=== PATIENT | male | born 1945 | race Caucasian/White ===

== ENCOUNTER → 2016-11-17 | Outpatient (REF) | payer OTHER, MEDICARE ==
[2016-11-17 15:05] LABS: ALBUMIN/GLOBULIN RATIO 1.21 (1.00-1.93); ALKALINE PHOSPHATASE 92 U/L (45-117); ALT/SGPT 41 U/L (12-78); ANION GAP 7 MEQ/L (8-16); AST/SGOT 29 U/L (15-37); BILIRUBIN,TOTAL 0.8 MG/DL (0.2-1.0); BLOOD UREA NITROGEN 14 MG/DL (7-18); CALCIUM LEVEL 8.9 MG/DL (8.8-10.2); CARBON DIOXIDE LEVEL 28 MEQ/L (21-32); CHLORIDE LEVEL 105 MEQ/L (98-107); CHOLESTEROL LEVEL 137 MG/DL (<200); CREATININE FOR GFR 1.25 MG/DL (0.70-1.30); GLOMERULAR FILTRATION RATE > 60.0 (>42); GLUCOSE, FASTING 97 MG/DL (83-110); POTASSIUM SERUM 4.5 MEQ/L (3.5-5.1); SODIUM LEVEL 140 MEQ/L (136-145); TOTAL PROTEIN 7.3 GM/DL (6.4-8.2); TRIGLYCERIDES LEVEL 113 MG/DL (<150)
== END ==
LOC: M SFHCLACO 09:19
PROVIDERS: ATTEND Physician Assistant
DX: E78.2 Mixed hyperlipidemia (principal); I10 Essential (primary) hypertension

== ENCOUNTER → 2017-05-18 | Outpatient (REF) | payer OTHER, MEDICARE ==
[2017-05-18 15:09] LABS: ALBUMIN/GLOBULIN RATIO 1.25 (1.00-1.93); ALKALINE PHOSPHATASE 85 U/L (45-117); ALT/SGPT 28 U/L (12-78); ANION GAP 6 MEQ/L (8-16); AST/SGOT 20 U/L (15-37); BILIRUBIN,TOTAL 0.7 MG/DL (0.2-1.0); BLOOD UREA NITROGEN 13 MG/DL (7-18); CALCIUM LEVEL 8.5 MG/DL (8.8-10.2); CARBON DIOXIDE LEVEL 29 MEQ/L (21-32); CHLORIDE LEVEL 104 MEQ/L (98-107); CHOLESTEROL LEVEL 111 MG/DL (<200); CREATININE FOR GFR 1.18 MG/DL (0.70-1.30); GLOMERULAR FILTRATION RATE > 60.0 (>42); GLUCOSE, FASTING 90 MG/DL (83-110); POTASSIUM SERUM 4.7 MEQ/L (3.5-5.1); SODIUM LEVEL 139 MEQ/L (136-145); TOTAL PROTEIN 7.2 GM/DL (6.4-8.2); TRIGLYCERIDES LEVEL 119 MG/DL (<150)
== END ==
LOC: M SFHCLACO 10:10
PROVIDERS: ATTEND Physician Assistant
DX: I10 Essential (primary) hypertension (principal); E78.2 Mixed hyperlipidemia

== ENCOUNTER → 2017-10-17 | Outpatient (REF) | payer OTHER, MEDICARE ==
[2017-10-17 15:14] LABS: ALBUMIN 4.2 GM/DL (3.2-5.2); ALBUMIN/GLOBULIN RATIO 1.27 (1.00-1.93); ALKALINE PHOSPHATASE 92 U/L (45-117); ALT/SGPT 27 U/L (12-78); ANION GAP 5 MEQ/L (8-16); AST/SGOT 21 U/L (7-37); BILIRUBIN,TOTAL 0.8 MG/DL (0.2-1.0); BLOOD UREA NITROGEN 13 MG/DL (7-18); CARBON DIOXIDE LEVEL 29 MEQ/L (21-32); CHLORIDE LEVEL 105 MEQ/L (98-107); CHOLESTEROL LEVEL 134 MG/DL (<200); CHOLESTEROL RISK RATIO 3.941 (<5); CREATININE FOR GFR 1.13 MG/DL (0.70-1.30); GLOMERULAR FILTRATION RATE > 60.0 (>42); GLUCOSE, FASTING 95 MG/DL (70-100); HDL CHOLESTEROL 34 MG/DL (>40); NON-HDL-C 100 MG/DL; POTASSIUM SERUM 4.8 MEQ/L (3.5-5.1); SODIUM LEVEL 139 MEQ/L (136-145); TOTAL PROTEIN 7.5 GM/DL (6.4-8.2); TRIGLYCERIDES LEVEL 110 MG/DL (<150)
== END ==
LOC: M SFHCLACO 08:47
DX: E78.2 Mixed hyperlipidemia (principal); I10 Essential (primary) hypertension
CPT/HCPCS: 80053

== ENCOUNTER → 2018-05-22 | Outpatient (REF) | payer OTHER, MEDICARE ==
[2018-05-22 13:00] LABS: ALBUMIN/GLOBULIN RATIO 1.29 (1.00-1.93); ALKALINE PHOSPHATASE 87 U/L (45-117); ALT/SGPT 22 U/L (12-78); ANION GAP 5 MEQ/L (8-16); AST/SGOT 21 U/L (7-37); BILIRUBIN,TOTAL 0.8 MG/DL (0.2-1.0); BLOOD UREA NITROGEN 12 MG/DL (7-18); CARBON DIOXIDE LEVEL 28 MEQ/L (21-32); CHLORIDE LEVEL 106 MEQ/L (98-107); CHOLESTEROL LEVEL 128 MG/DL (<200); CHOLESTEROL RISK RATIO 4.571 (<5); CREATININE FOR GFR 1.23 MG/DL (0.70-1.30); GLOMERULAR FILTRATION RATE > 60.0 (>42); GLUCOSE, FASTING 91 MG/DL (70-100); HDL CHOLESTEROL 28 MG/DL (>40); LDL CHOLESTEROL 78 MG/DL (<100); NON-HDL-C 100 MG/DL; POTASSIUM SERUM 5.2 MEQ/L (3.5-5.1); SODIUM LEVEL 139 MEQ/L (136-145); TOTAL PROTEIN 7.1 GM/DL (6.4-8.2); TRIGLYCERIDES LEVEL 109 MG/DL (<150)
== END ==
LOC: M LABDRWAD 12:08
DX: I10 Essential (primary) hypertension (principal); E78.2 Mixed hyperlipidemia

== ENCOUNTER → 2018-09-18 | Outpatient (REF) | payer OTHER, MEDICARE ==
[2018-09-18 15:06] LABS: ALT/SGPT 25 U/L (12-78); BILIRUBIN,TOTAL 0.8 MG/DL (0.2-1.0); BLOOD UREA NITROGEN 10 MG/DL (7-18); CALCIUM LEVEL 8.8 MG/DL (8.8-10.2); CARBON DIOXIDE LEVEL 28 MEQ/L (21-32); CHLORIDE LEVEL 105 MEQ/L (98-107); CHOLESTEROL LEVEL 127 MG/DL (<200); CHOLESTEROL RISK RATIO 4.535 (<5); CREATININE FOR GFR 1.17 MG/DL (0.70-1.30); GLOMERULAR FILTRATION RATE > 60.0 (>42); GLUCOSE, FASTING 95 MG/DL (70-100); HDL CHOLESTEROL 28 MG/DL (>40); LDL CHOLESTEROL 79 MG/DL (<100); NON-HDL-C 99 MG/DL; SODIUM LEVEL 140 MEQ/L (136-145); TOTAL PROTEIN 7.1 GM/DL (6.4-8.2); TRIGLYCERIDES LEVEL 102 MG/DL (<150)
== END ==
LOC: M SFHCADAM 08:16
PROVIDERS: ATTEND Physician Assistant
DX: R97.20 Elevated prostate specific antigen [PSA] (principal)
CPT/HCPCS: 80053; 80061; G0103

== ENCOUNTER → 2018-09-29 | Outpatient (REF) | payer OTHER | LOC: M LAB REF 10:22 | PROVIDERS: ATTEND Physician Assistant | DX: N39.0 Urinary tract infection, site not specified (principal) ==

== ENCOUNTER 2018-10-08 14:26 | Inpatient (IN) | payer MEDICARE, OTHER ==
[~2018-10-08] VITALS: Ht 185.4 cm; Wt 108.2 kg
[2018-10-08] MEDS ORDERED: CIPR500T39 PO (14:37)
[2018-10-08] MEDS ORDERED: SIMV5TAB12 PO (14:37)
[2018-10-08] MEDS ORDERED: OMEGA (14:37)
[2018-10-08] MEDS ORDERED: CARV40CA PO (14:37)
[2018-10-08] MEDS ORDERED: LISI-672 PO (14:37)
[2018-10-08] MEDS ORDERED: NS 500 ML IV ONE ×2 (16:00→18:00)
[2018-10-08 17:01] LABS: HEMATOCRIT 47.4 % (42.0-52.0); HEMOGLOBIN 15.9 g/dl (13.5-17.5); MEAN CORPUSCULAR HEMOGLOBIN 30.2 pg (27.0-33.0); MEAN CORPUSCULAR HGB CONC 33.5 g/dl (32.0-36.5); MEAN CORPUSCULAR VOLUME 89.9 fl (80.0-96.0); PLATELET COUNT, AUTOMATED 456 10^3/uL (150-450); RED BLOOD COUNT 5.27 10^6/uL (4.30-6.10); WHITE BLOOD COUNT 18.6 10^3/uL (4.0-10.0)
[2018-10-08 17:17] LABS: LYMPHOCYTES 8 % (16-52); METAMYELOCYTES 2 % (0-0); MONOCYTES 4 % (0-8); MYELOCYTES 1 % (0-0); NEUTROPHILS 81 % (35-75)
[2018-10-08 17:18] LABS: PLATELET ESTIMATE INCREASED (NORMAL); TOXIC GRANULATION 1+; TOXIC VACUOLATION 1+
[2018-10-08 17:25] LABS: CALCIUM LEVEL 8.1 MG/DL (8.8-10.2); CREATININE FOR GFR 2.15 MG/DL (0.70-1.30); GLOMERULAR FILTRATION RATE 32.1 (>42); POTASSIUM SERUM 4.7 MEQ/L (3.5-5.1)
[2018-10-08] MEDS ORDERED: LIDOCAINE 2% 5ML JELLY UROJET TOP ONE (18:00)
[2018-10-08] MEDS ORDERED: cefTRIAXone SOD 1 GM in D5W MINI-BAG PLUS 50 ML IV ONE (19:00)
[2018-10-08] MEDS ORDERED: OMEG10002 PO (19:44)
--- NOTE | 2018-10-08 20:36 | REPVR ---
EXAM: US Pelvis Limited, Male EXAM DATE/TIME: 10/08/2018 8:00 PM CLINICAL HISTORY: 73 years old, male; Signs and symptoms; Bladder; Urine retention; Additional info: Urinary retention TECHNIQUE: Real-time pelvic ultrasound with image documentation. COMPARISON: No relevant prior studies available. FINDINGS: Prostate: There is severe enlargement of the prostate measuring 7.5 CM. Bladder: At the base of the urinary bladder there is a 5 CM echogenic structure which may represent a neoplasm originating from the urinary bladder such as a transitional cell carcinoma. This could also represent neoplasm extending from the prostate into the base of the urinary bladder. There is vascularity of this structure therefore thought less likely to be hematoma or debris. There is a moderate amount of urine in the urinary bladder and the patient was unable to void. Therefore large persistent residual within the urinary bladder. IMPRESSION: 1. Enlarged prostate 7.5 CM. 2. 5 CM echogenic mass at the base of the urinary bladder could be primary neoplasm of the urinary bladder or neoplasm extending from prostate. Large persistent residual urine within the bladder. Electronically signed by: Hieu Aragon On 10/08/2018 20:35:58 PM
[2018-10-08] MEDS ORDERED: ONDANSETRON 4MG/2ML VIAL (J2405) IV PRN (21:45)
[2018-10-08] MEDS ORDERED: MORPHINE 4 MG/ML 1ML VIAL/SYRINGE (J2270) IV PRN (21:45)
[2018-10-08] MEDS: NS 1,000 ML IV SCH (22:21)
[2018-10-08 23:45] VITALS: BP 138/77
--- NOTE | 2018-10-09 00:23 | HPE ---
DATE OF ADMISSION: 10/08/2018 A 73-year-old male with a past medical history of hypertension, hyperlipidemia, presents to the emergency room due to continued urgency and frequency, as well as dysuria that has been ongoing for the last 2 weeks. In the last 2 weeks, he says he has gone through two antibiotics for empiric treatment of urinary tract infection (UTI); one was Macrobid and his second one was ciprofloxacin. In the emergency room (ER), he had a urinalysis done, which showed it was positive for UTI. Of note, bladder scan did show that he was retaining approximately 150 mL of urine. Then, they straight catheterized (cathed) him for 600 mL. A renal ultrasound was done, which showed the possibility of a bladder mass and retained urine. No hydronephrosis. The patient was started on intravenous (IV) Rocephin. Urine cultures have been sent, and the patient will be admitted for further management. He denies any subjective feeling of fever, aches, or chills. PAST MEDICAL HISTORY: Again, past medical history of hypertension, hyperlipidemia. ALLERGIES: He has no known drug allergies. FAMILY HISTORY: Noncontributory. SOCIAL HISTORY: The patient denies tobacco, alcohol or illicit drugs. MEDICATIONS: He takes at home are as follows: - lisinopril 30 mg orally daily - Cipro 500 mg orally every 12 hours, which was started on 10/05/2018. - simvastatin 5 mg orally at bedtime REVIEW OF SYSTEMS: Negative all ten major systems except what has been mentioned in the history of the present illness. Vital Signs: Blood pressure 116/73, heart rate is 62, regular, respiratory rate 22, temperature 99.1, oxygen saturation 98% on room air. Head is atraumatic, normocephalic. Neck supple. No jugular venous distention (JVD). Lungs are clear to auscultation. S1, S2 audible, No murmurs appreciated. Abdomen: Soft, positive bowel sounds. No pedal edema. Skin: Intact. Neurologic Examination: Patient awake, alert, oriented times three. LABORATORY: WBC 18.6, hemoglobin is 15.9, hematocrit 47.4, platelets of 456,000. Sodium 133, potassium is 4.7, chloride 100, CO2 of 23, BUN is 23, creatinine is 2.15, glucose is 100. IMPRESSION: 1. Urinary tract infection. 2. Urinary retention. 3. Acute kidney injury (CADY). 4. Bladder mass. PLAN: The patient is to be admitted to the medical-surgical floor. Will continue the patient on IV Rocephin 1 gram IV daily and follow cultures. I spoke with Dr. Cook. Recommendations are to correct the urinary tract infection first and then do an elective outpatient cystoscopy to evaluate this bladder mass. The CADY is likely prerenal in origin. Will give the patient normal saline at 100 mL an hour. Will monitor BUN and creatinine trends. The patient does have a large prostate, according to the renal ultrasound. I will start him on Flomax and will follow his bladder scans every shift.
[2018-10-09] MEDS: ACETAMINOPHEN TAB 650MG DOSE (2X325MG) PO PRN (05:30)
[2018-10-09] MEDS: NS 1,000 ML IV SCH ×2 (05:31→16:22)
[2018-10-09 06:00] VITALS: BP 113/85
[2018-10-09 06:16] LABS: HEMATOCRIT 42.4 % (42.0-52.0); HEMOGLOBIN 14.1 g/dl (13.5-17.5); MEAN CORPUSCULAR HEMOGLOBIN 29.9 pg (27.0-33.0); MEAN CORPUSCULAR HGB CONC 33.3 g/dl (32.0-36.5); PLATELET COUNT, AUTOMATED 396 10^3/uL (150-450); RED BLOOD COUNT 4.71 10^6/uL (4.30-6.10); WHITE BLOOD COUNT 13.7 10^3/uL (4.0-10.0)
[2018-10-09 06:39] LABS: CALCIUM LEVEL 7.6 MG/DL (8.8-10.2); CREATININE FOR GFR 2.55 MG/DL (0.70-1.30); GLOMERULAR FILTRATION RATE 26.3 (>42); POTASSIUM SERUM 4.3 MEQ/L (3.5-5.1)
[2018-10-09 07:00] LABS: BASOPHILS 1 % (0-4); LYMPHOCYTES 8 % (16-52); METAMYELOCYTES 2 % (0-0); MONOCYTES 6 % (0-8); MYELOCYTES 1 % (0-0); NEUTROPHILS 81 % (35-75)
[2018-10-09 07:01] LABS: PLATELET ESTIMATE NORMAL (NORMAL)
[2018-10-09 07:02] LABS: TOXIC GRANULATION 1+
[2018-10-09] MEDS: OMEGA-3 1000MG CAPSULE PO SCH ×2 (08:38→21:25)
[2018-10-09] MEDS: TAMSULOSIN 0.4 MG CAP PO SCH (08:38)
[2018-10-09] MEDS: cefTRIAXone SOD 1 GM in D5W MINI-BAG PLUS 50 ML IV SCH (08:39)
[2018-10-09] MEDS ORDERED: LIDOCAINE 2% 5ML JELLY UROJET TOP ONE ×2 (10:30→13:30)
--- NOTE | 2018-10-09 14:06 | REP ---
Clinical: Preoperative assessment. Technique: Real time muse scale ultrasound examination using curved array transducer. Findings: Partially calcified posterior bladder mass extending into the bladder measures approximately 5.2 x 4.8 x 6.2 cm finding is inseparable from the underlying prostate which measures 4.7 x 5.0 x 5.7 cm and the bladder mass may in fact the enlarged exophytic portion of the prostate gland. The bladder wall is otherwise normal. Bladder currently measures 15.5 x 6.2 x 8.1 cm (508 ml). Impression: Mass extends into the bladder which may represent primary bladder mass or enlarged exophytic portion of the prostate gland. Electronically Signed by Torres Zapata MD 10/09/2018 01:57 P
[2018-10-09 14:30] VITALS: BP 132/85
[2018-10-09] MEDS ORDERED: METOPROLOL TART 12.5 MG PER 1/2 TAB PO ONE ×3 (16:15→21:00)
[2018-10-09 16:30] LABS: THYROID STIMULATING HORMONE 0.994 uIU/ML (0.358-3.740)
--- NOTE | 2018-10-09 17:11 | CR.PDOC ---
General Date of Consultation: Oct 09, 2018 Referring Provider: CLINT COOK MD Primary Care Physician: CLINT COOK MD Attending Physician: CLINT COOK MD Consultation REASON FOR CONSULTATION/CHIEF COMPLAINT: Dr Cohen requested a consult secondary to bladder mass; but upon seeing the patient it is noted that the staff on the floor have gathered d/t issues placing a catheter in the patient d/t urinary retention. HISTORY OF PRESENT ILLNESS: Pt states everything happen or the perverbial wheel fell off within the last 2 weeks. he was perfect before then. he use to see dr. hester and was taking a little blue pill for prostate problems 10 years ago. He denies taking viagra. ALLERGIES: Please see below. HOME MEDICATIONS: Please see below. PAST MEDICAL HISTORY: hypertension, hyperlipidemia. bph anxiety neglect of bph treatment once his urologist left town ALLERGIES: He has no known drug allergies. FAMILY HISTORY: Noncontributory. SOCIAL HISTORY: The patient denies tobacco, alcohol or illicit drugs. MEDICATIONS: He takes at home are as follows: - lisinopril 30 mg orally daily - Cipro 500 mg orally every 12 hours, which was started on 10/05/2018. - simvastatin 5 mg orally at bedtime REVIEW OF SYSTEMS: CONSTITUTIONAL: alert oriented slurred speech. HEENT: no head neck nose or throat issues; speech is not clear. CARDIOVASCULAR: new onset afib as 3pm today. RESPIRATORY: cough GENITOURINARY: bladder mass and bladder stone. MUSCULOSKELETAL: ambulates well. GASTROINTESTINAL: hemorrhoids. : last 2 weeks problems with frequeuncy urgency; new bladder mass uncovered SKIN: aged NEUROLOGICAL: see constitutional. PSYCHIATRIC: no depression or anxiety. ENDOCRINE: no diabetes or thyroid disease. HEMATOLOGIC/LYMPHATIC: hematuria; blood clots from bladder trauma. ALLERGIC/IMMUNOLOGIC: nkda. Negative all ten major systems except what has been mentioned in the history of the present illness. Vital Signs: Blood pressure 116/73, heart rate is 62, regular, respiratory rate 22, temperature 99.1, oxygen saturation 98% on room air. Head is atraumatic, normocephalic. Neck supple. No jugular venous distention (JVD). Lungs are clear to auscultation. S1, S2 audible, No murmurs appreciated. Abdomen: Soft, positive bowel sounds. No pedal edema. Skin: Intact. Neurologic Examination: Patient awake, alert, oriented times three. LABORATORY DATA: Please see below. ASSESSMENT/PLAN: 1. enlarged prostate on mirian: recommend psa f/t. 2. hematuria: associated with stone in his bladder. unsure if stone is associated with underlying bladder mass. recommend ct urogram if renal function normal. new 24f (newly created hamilton). cbi to gentle irrigation to keep urine clear. will need elective cysto bladder stone litihotripsy possible turbt of un derlying bladder mass. spoke with dr. cook b/c new onset afib-he's [facility] the [facility] for w[facility]u management. we will have to defer the surgery (he now has a gray 3 way). the other procedures can be electively managed. if blood thinners are started there is likely to be lots of issues with bleeding from urethral trauma, bladder mass and bladder stones. continue cbi. blood thinners use requires informing pt of the associated risks. 3. new afib: going to the pcu. Vital Signs/I&O Vital Signs Date Time Temp Pulse Resp B/P (MAP) Pulse Ox O2 Delivery O2 Flow Rate FiO2 10/09/18 06:00 97.9 53 18 113/85 (94) 93 10/08/18 23:00 Room Air I&O- Last 24 Hours up to 6 AM 10/09/18 06:00 Intake Total 1525 ml Output Total 1500 ml Balance 25 ml Laboratory Data Labs 24H Laboratory Tests 2 10/08/18 16:55: Immature Granulocyte % (Auto) , Nucleated Red Blood Cells % (auto) 0.0, Neutrophils 81H, Band Neutrophils 4, Lymphocytes (Manual) 8L, Monocytes (Manual) 4, Metamyelocytes 2H, Myelocytes 1H, Toxic Granulation 1+, Toxic Vacuolation 1+, Platelet Estimate INCREASED, Anion Gap 10, Glomerular Filtration Rate 32.1L, Blood Urea Nitrogen 23H, Creatinine 2.15H, Sodium Level 133L, Potassium Level 4.7, Chloride Level 100, Carbon Dioxide Level 23, Calcium Level 8.1L 10/08/18 18:27: Urine Color YELLOW, Urine Appearance CLEAR, Urine pH 6.0, Urine Specific [place] 1.004, Urine Protein 1+H, Urine Glucose (UA) NEGATIVE, Urine Ketones NEGATIVE, Urine Blood 3+H, Urine Nitrite NEGATIVE, Urine Bilirubin NEGATIVE, Urine Urobilinogen 0.2, Urine Leukocyte Esterase 1+H, Urine WBC (Auto) 7H, Urine RBC (Auto) 21H, Urine Hyaline Casts (Auto) 0, Urine Bacteria (Auto) 2+H, Urine Squamous Epithelial Cells 0, Urine Sperm (Auto) 10/09/18 05:51: Immature Granulocyte % (Auto) , Nucleated Red Blood Cells % (auto) 0.0, Neutrophils 81H, Band Neutrophils 1, Lymphocytes (Manual) 8L, Monocytes (Manual) 6, Metamyelocytes 2H, Myelocytes 1H, Toxic Granulation 1+, Platelet Estimate NORMAL, Anion Gap 10, Glomerular Filtration Rate 26.3L, Blood Urea Nitrogen 29H, Creatinine 2.55H, Sodium Level 134L, Potassium Level 4.3, Chloride Level 102, Carbon Dioxide Level 22, Calcium Level 7.6L, Basophils (Manual) 1, Red Blood Cell Morphology NORMAL CBC/BMP Laboratory Tests 10/08/18 16:55 Red Blood Count 5.27, Mean Corpuscular Volume 89.9, Mean Corpuscular Hemoglobin 30.2, Mean Corpuscular Hemoglobin Concent 33.5, Red Cell Distribution Width 13.3, Calcium Level 8.1 L 10/09/18 05:51 Red Blood Count 4.71, Mean Corpuscular Volume 90.0, Mean Corpuscular Hemoglobin 29.9, Mean Corpuscular Hemoglobin Concent 33.3, Red Cell Distribution Width 13.5, Calcium Level 7.6 L Microbiology Microbiology 10/08/18 Urine Culture, Received Pending Allergies Coded Allergies: No Known Allergies (Unverified , 10/08/18) Home Medications Scheduled Ciprofloxacin HCl (Ciprofloxacin Hydrochlori) 500 Mg Tab, 500 MG PO Q12H, (Reported) STARTED 10/05/18. X 10 DAYS. Lisinopril (Lisinopril) 30 Mg Tab, 30 MG PO DAILY, (Reported) [place] 3 Polyunsat Fatty Acids ([place]-3 1000 mg) 1 Cap Cap, 2 CAP PO BID, (Re ported) Simvastatin (Simvastatin) 5 Mg Tab, 5 MG PO QHS, (Reported) Pham Cook MD Oct 09, 2018 11:21
--- NOTE | 2018-10-09 17:26 | ROOPDOC ---
[facility] Report Of Operation Report of Operation DATE OF PROCEDURE: 10/09/18 PREPROCEDURE DIAGNOSES: hematuria (blood at meatus); bladder mass. prior attempts of gray unsuccessful by RN for patient associated with bleeding at meatus. urethral trauma POSTPROCEDURE DIAGNOSES: same; bladder calcification. PROCEDURE: cystoscopy (flexible). SURGEON: Pham Cook MD [facility] ANESTHESIA: 2% lidocaine. ESTIMATED BLOOD LOSS: Approximately 10mL. COMPLICATIONS: none. REMARKS/findings: bladder calcification; urethral blood; challenging view of urethra; able to get into the bladder with motion wire follow with newly created pamunkey 24f 10ml balloon and [address] gray. enlarged bladder; urethral clots trauma; tortuous urethra. DESCRIPTION OF PROCEDURE: after informed consent and routine time out the patient was prepped and draped. 21f cystoscope was introduced into the urethra. d/t blood in the urethra a 60f urethra was used to irrigate the urethra. enlarged prostate was observed. bladder calcification was also observed. motion wire was introduced and then newly created pamunkey 24f was introduced and insufflated 10ml balloon. The patient tolerated the procedure well. irrigation port was supported with sterile water to maintain cbi and wean to off when clear. drainage port had gray bag placed. urine was sent for culture. Pham Cook MD Oct 09, 2018 17:26
[2018-10-09 18:10] VITALS: BP 135/86
--- NOTE | 2018-10-09 18:33 | IPNPDOC ---
Date Seen The patient was seen on 10/09/18. Progress Note SUBJECTIVE: Patient tells me that he feels slightly better after having his catheter inserted briefly overnight however he has not been able to urinate since then SIGNS: Please see below. GENERAL: Pleasant elderly man somewhat disheveled lying flat in bed in no acute distress awake alert oriented conversant HEENT: Cranial nerves II through XII grossly intact CARDIOVASCULAR: S1-S2 regular at the time of my exam. RESPIRATORY: Clear to auscultation bilaterally. ABDOMINAL: Obese no suprapubic tenderness no CVA tenderness EXTREMITIES: No clubbing cyanosis or edema LABORATORY DATA, IMAGING STUDIES, MICROBIOLOGY: Please see below. DVT prophylaxis ordered?: Sequentials teds ASSESSMENT AND PLAN: This is a 73-year-old man with acute kidney injury secondary to urinary retention. PROBLEMS: 1. Acute kidney injury: Patient's renal function is worse today he was straight cathed once for greater than half a liter I suspect that he is retaining once again I have asked nursing to check bladder scan and is suspected it is elevated once again and I placed a Serna catheter placed in the patient's imaging was concerning for a bladder mass suspect this may be obstructing he may benefit from a urology consultation. Given that there is a bladder mass and his UA is somewhat abnormal he's been started on empiric antibiotics to continue for now leukocytosis does appear to be improving I would optimistically like to see his renal function improve and for now we'll continue the IV fluids. Continue to monitor them closely 2. Atrial fibrillation with rapid ventricular response: The patient is completely asymptomatic he is pierced be taking Coreg for hypertension no documented history of check a TSH and echocardiogram and transferred out of the progressive care unit start him on metoprolol 12 mg every 6 hours with holding parameters is unclear if this is related to acute medical illness versus something that he's had chronic long-term without knowing he is had approximately triple ablation given his complete lack of symptoms. 3. Hypertension: We will hold his lisinopril in the setting of acute kidney injury. 4. This anemia: Continue simvastatin DISPOSITION: Pending urology and clinical improvement of his renal function. VS, I&O, 24H, Fishbone Vital Signs/I&O Vital Signs Date Time Temp Pulse Resp B/P (MAP) Pulse Ox O2 Delivery O2 Flow Rate FiO2 10/09/18 16:20 91 122/85 10/09/18 14:30 98.0 24 96 10/08/18 23:00 Room Air I&O- Last 24 Hours up to 6 AM 10/09/18 06:00 Intake Total 1525 ml Output Total 1500 ml Balance 25 ml Laboratory Data 24H LABS Laboratory Tests 2 10/09/18 05:51: Immature Granulocyte % (Auto) , Nucleated Red Blood Cells % (auto) 0.0, Neutrophils 81H, Band Neutrophils 1, Lymphocytes (Manual) 8L, Monocytes (Manual) 6, Basophils (Manual) 1, Metamyelocytes 2H, Myelocytes 1H, Toxic Granulation 1+, Platelet Estimate NORMAL, Red Blood Cell Morphology NORMAL, Anion Gap 10, G lomerular Filtration Rate 26.3L, Blood Urea Nitrogen 29H, Creatinine 2.55H, Sodium Level 134L, Potassium Level 4.3, Chloride Level 102, Carbon Dioxide Level 22, Calcium Level 7.6L, Thyroid Stimulating Hormone (TSH) 0.994 CBC/BMP Laboratory Tests 10/09/18 05:51 Red Blood Count 4.71, Mean Corpuscular Volume 90.0, Mean Corpuscular Hemoglobin 29.9, Mean Corpuscular Hemoglobin Concent 33.3, Red Cell Distribution Width 13.5, Calcium Level 7.6 L Microbiology Microbiology 10/08/18 Urine Culture - Final, Complete CLINT COOK MD Oct 09, 2018 18:33
[2018-10-09 20:00] VITALS: BP 137/90
[2018-10-09] MEDS ORDERED: METOPROLOL SUCC *XL* 12.5MG PER 1/2 TAB (TopROL *XL*) PO ONE (21:00)
[2018-10-09] MEDS: SIMVASTATIN 5 MG TAB PO SCH (21:25)
[2018-10-10] VITALS (8 sets, daily range): BP systolic 127–156; BP diastolic 82–98
[2018-10-10] MEDS ORDERED: METOPROLOL TART 12.5 MG PER 1/2 TAB PO SCH
[2018-10-10] MEDS: NS 1,000 ML IV SCH ×2 (03:03→13:39)
[2018-10-10] MEDS ORDERED: METOPROLOL 5 MG/5 ML VIAL IV ONE (03:15)
[2018-10-10 05:56] LABS: HEMATOCRIT 38.4 % (42.0-52.0); HEMOGLOBIN 12.9 g/dl (13.5-17.5); MEAN CORPUSCULAR HEMOGLOBIN 30.4 pg (27.0-33.0); MEAN CORPUSCULAR HGB CONC 33.6 g/dl (32.0-36.5); MEAN CORPUSCULAR VOLUME 90.6 fl (80.0-96.0); PLATELET COUNT, AUTOMATED 311 10^3/uL (150-450); RED BLOOD COUNT 4.24 10^6/uL (4.30-6.10)
[2018-10-10] MEDS: METOPROLOL TART 25 MG TABLET PO SCH ×4 (06:08→17:31)
[2018-10-10 06:23] LABS: CALCIUM LEVEL 7.5 MG/DL (8.8-10.2); CREATININE FOR GFR 1.93 MG/DL (0.70-1.30); GLOMERULAR FILTRATION RATE 36.3 (>42); POTASSIUM SERUM 4.2 MEQ/L (3.5-5.1)
[2018-10-10] MEDS ORDERED: DIGOXIN INJ 0.5 MG/2 ML AMP (J1160) IV ONE (06:45)
--- NOTE | 2018-10-10 07:10 | ECGEPIP ---
Stationary ECG Study [facility] Test Date: 2018-10-09 Pat Name: NATIVIDAD RUTH Department: Room: [place] [address] Gender: M [employer] Critic: JULIA : 1945 Requested By: CLINT COOK Order Number: [id number] Reading MD: Dannie Melo Measurements Intervals [place] Rate: 140 P: TN: 0 QRS: 9 QRSD: 137 T: 9 QT: 321 QTc: 491 Interpretive Statements Baseline artifact Probable atrial fibrillation with rapid ventricular response Right bundle branch block Subtle primary ST/T-wave abnormalities Clinical correlation advised Electronically Signed On 10-10-2018 7:10:27 EST by Dannie Melo
[2018-10-10] MEDS: OMEGA-3 1000MG CAPSULE PO SCH ×2 (10:03→21:01)
[2018-10-10] MEDS: TAMSULOSIN 0.4 MG CAP PO SCH (10:03)
[2018-10-10] MEDS: cefTRIAXone SOD 1 GM in D5W MINI-BAG PLUS 50 ML IV SCH (10:04)
--- NOTE | 2018-10-10 14:30 | IPNPDOC ---
Date Seen The patient was seen on 10/10/18. Progress Note SUBJECTIVE: Patient tells me that he feels much better this AM. He denies palpitations, sob, CP lightheadedness or dizziness. SIGNS: Please see below. GENERAL: Pleasant elderly man somewhat disheveled lying flat in bed in no acute distress awake alert oriented HEENT: Cranial nerves II through XII grossly intact CARDIOVASCULAR: S1-S2 regular at the time of my exam. RESPIRATORY: Clear to auscultation bilaterally. ABDOMINAL: Obese no suprapubic tenderness no CVA tenderness he has a Serna catheter in place with CBI running EXTREMITIES: No clubbing cyanosis or edema LABORATORY DATA, IMAGING STUDIES, MICROBIOLOGY: Please see below. DVT prophylaxis ordered?: Sequentials teds ASSESSMENT AND PLAN: This is a 73-year-old man with acute kidney injury secondary to urinary retention. PROBLEMS: 1. Acute kidney injury: Patient's renal function is much improved today and I suspect that was all secondary to obstructive uropathy that did improve with placement of Serna catheter by urology. He has been receiving normal saline however now that his renal function is improving he is tolerating by mouth and his obstruction has been alleviated I will discontinue his IV fluids. His urine culture is negative and as such I'll discontinue ceftriaxone as well. He has a Serna catheter and was continuous bladder irrigation as per urology's help is greatly appreciated there is concern that his bladder mass will need biopsy and he'll likely need cystoscopy I did suggest that she be completed outpatient electively as he did develop new onset atrial fibrillation with rapid ventricular response that required is controlling the dressing and evaluation prior to any procedure.. The patient has a large prostate will order PSA as per urology's recommendations he also has bladder stones which urology plans to address outpatient, they would ideally like to have him undergo a CT urogram whe n his renal function is improved 2. Atrial fibrillation with rapid ventricular response: Patient continues to be completely asymptomatic he tells me that he is noticed that he has a high heart rate at times and that his Coreg brings it down but he is never been told he has atrial fibrillation looking back through the documentation from his primary care provider's notes there is no documentation of atrial fibrillation either. A TSH is within normal limits and echocardiogram has been ordered he is still somewhat uncontrolled this morning and as such I will provide him with up titration of metoprolol in addition add IV digoxin 1 and start him on digoxin by mouth daily until we achieve adequate rate control. My suspicion is that he is likely had this for quite some time and been completely unaware about it. The patient based on his age and hypertension barely qualifies for anticoagulation therapy however in the setting of a newly discovered bladder mass urology feels that he is very high risk for bleeding which I agree with he did have some RBCs in his urine. 3. Hypertension: We will hold his lisinopril in the setting of acute kidney injury and wobbly titrate up his beta shawn. 4. This anemia: Continue simvastatin 5. Diarrhea: A new problem. Objective PCR panel is unclear when this began he is not the most reliable historian DISPOSITION: Pending evaluation of his atrial fibrillation VS, I&O, 24H, Fishbone Vital Signs/I&O Vital Signs Date Time Temp Pulse Resp B/P (MAP) Pulse Ox O2 Delivery O2 Flow Rate FiO2 10/10/18 12:32 126 156/86 10/10/18 08:00 98.8 20 93 10/08/18 23:00 Room Air I&O- Last 24 Hours up to 6 AM 10/10/18 05:59 Intake Total 1420 ml Output Total 2625 ml Balance -1205 ml Laboratory Data 24H LABS Laboratory Tests 2 10/10/18 05:40: Nucleated Red Blood Cells % (auto) 0.0, Anion Gap 8, Glomerular Filtration Rate 36.3L, Blood Urea Nitrogen 27H, Creatinine 1.93H, Sodium Level 137, Potassium Level 4.2, Chloride Level 107, Carbon Dioxide Level 22, Calcium Level 7.5L CBC/BMP Laboratory Tests 10/10/18 05:40 Red Blood Count 4.24 L, Mean Corpuscular Volume 90.6, Mean Corpuscular Hemoglobin 30.4, Mean Corpuscular Hemoglobin Concent 33.6, Red Cell Distribution Width 13.8, Calcium Level 7.5 L Microbiology Microbiology 10/08/18 Urine Culture - Final, Complete CLINT COOK MD Oct 10, 2018 14:30
--- NOTE | 2018-10-10 20:50 | ECHO ---
DATE OF PROCEDURE: 10/10/2018 REFERRING PHYSICIAN: Lin Bernabe MD PATIENT LOCATION: Room 3230 REASON FOR ECHOCARDIOGRAM: Abnormal EKG. 2D MEASUREMENTS: IVS: 1.3 cm LV: 4.1 cm LVPW: 1.3 cm LA: 4.9 cm Aorta: 4.5 cm IVC: 1.9 cm DOPPLER MEASUREMENTS: Peak velocity across the aortic valve: 1.5 m/s Peak velocity across the LVOT: 0.7 m/s Mitral E: 0.87. Maximum tricuspid valve velocity: 2.5 m/s 2D COMMENTS: 1. Normal left ventricular size with mildly increased left ventricular wall thickness. Left ventricular systolic function is normal, estimated at 60 to 65%. 2. Mildly enlarged left atrium. The right atrium also appeared to be mildly enlarged in limited views. The right ventricle was not well visualized. 3. The atrial septum appeared to be normal without evidence of defect or shunt. 4. Mildly dilated aortic root at 4.5 cm. 5. No pericardial effusion seen. 6. Mildly calcified aortic valve with normal leaflet excursion. Mildly calcified mitral annulus with normal anterior mitral valve leaflet motion. Normal tricuspid valve. The pulmonic valve and proximal pulmonary artery branches were not well visualized. 7. The inferior vena cava was normal in size, central venous pressure is most likely normal. DOPPLER: Mild tricuspid regurgitation was noted in limited views. Assessment of the left ventricular diastolic function was limited in view of the underlying arrhythmia that seems to be atrial fibrillation. The calculated pulmonary artery systolic pressure varies between 30 to 40 mmHg. IMPRESSION: 1. Normal global left ventricular systolic function with mild concentric left ventricular hypertrophy. Assessment of the left ventricular diastolic function was limited in view of the underlying atrial fibrillation. 2. Aortic valve sclerosis without stenosis or aortic regurgitation. 3. Mildly enlarged left atrium with mitral annulus calcification. No significant mitral regurgitation detected. 4. Mild tricuspid regurgitation with mild pulmonary hypertension and probably mildly enlarged right atrium. 5. Dilated aortic root at 4.5 cm. 6. Biatrial enlargement noted, it is probably related to the underlying atrial fibrillation. 7. Patient during the test was in atrial fibrillation at a heart rate that varied between 130 and 140 beats per minute at times. 8. The study was technically limited due to poor acoustic window. [facility]
[2018-10-10] MEDS: SIMVASTATIN 5 MG TAB PO SCH (21:02)
[2018-10-11] MEDS: METOPROLOL TART 25 MG TABLET PO SCH ×5 (00:59→23:40)
[2018-10-11 04:00] VITALS: BP 155/76
[2018-10-11 06:01] LABS: HEMATOCRIT 39.3 % (42.0-52.0); HEMOGLOBIN 13.1 g/dl (13.5-17.5); MEAN CORPUSCULAR HEMOGLOBIN 29.9 pg (27.0-33.0); MEAN CORPUSCULAR HGB CONC 33.3 g/dl (32.0-36.5); MEAN CORPUSCULAR VOLUME 89.7 fl (80.0-96.0); PLATELET COUNT, AUTOMATED 295 10^3/uL (150-450); RED BLOOD COUNT 4.38 10^6/uL (4.30-6.10); WHITE BLOOD COUNT 8.5 10^3/uL (4.0-10.0)
[2018-10-11 06:18] LABS: CALCIUM LEVEL 7.6 MG/DL (8.8-10.2); CREATININE FOR GFR 1.35 MG/DL (0.70-1.30); GLOMERULAR FILTRATION RATE 54.8 (>42)
[2018-10-11 08:00] VITALS: BP 141/87
[2018-10-11] MEDS: TAMSULOSIN 0.4 MG CAP PO SCH (09:32)
[2018-10-11] MEDS: DIGOXIN 0.125 MG TAB PO SCH (09:32)
[2018-10-11] MEDS: OMEGA-3 1000MG CAPSULE PO SCH ×2 (10:31→20:52)
[2018-10-11 11:49] VITALS: BP 142/78
[2018-10-11] MEDS ORDERED: DIGOXIN INJ 0.5 MG/2 ML AMP (J1160) IV ONE (12:30)
--- NOTE | 2018-10-11 13:21 | IPNPDOC ---
Text Note Date of Service The patient was seen on 10/11/18. NOTE SUBJECTIVE: Patient tells me that he feels much better this AM. He denies pal pitations, sob, CP lightheadedness or dizziness. Tough on telemetry he remains tachycardic to 140s. PHYSICAL EXAM: VITAL SIGNS: Please see below. GENERAL: Pleasant elderly man somewhat disheveled lying flat in bed in no acute distress awake alert oriented HEENT: Cranial nerves II through XII grossly intact CARDIOVASCULAR: S1-S2 1rregular at the time of my exam. RESPIRATORY: Clear to auscultation bilaterally. ABDOMINAL: Obese no suprapubic tenderness no CVA tenderness he has a Serna catheter in place with CBI running EXTREMITIES: No clubbing cyanosis or edema LABORATORY DATA, IMAGING STUDIES, MICROBIOLOGY: Please see below. DVT prophylaxis ordered?: Sequentials teds ASSESSMENT AND PLAN: This is a 73-year-old man with Hypertension,hyperlipidemia, presents to the emergency room due to urinary urgency and frequency, dysuria that has been ongoing for the last 2 weeks and unable to void for 1 day. In the last 2 weeks, he says he has gone through two antibiotics for empiric treatment of urinary tract infection (UTI); one was Macrobid and his second one was ciprofloxacin. In the emergency room (ER), he had a urinalysis done, which showed it was positive for possible UTI. Of note, bladder scan did show that he was retaining approximately 150 mL of urine. Then, they straight catheterized (cathed) him for 600 mL. A renal ultrasound was done, which showed the possibility of a bladder mass and retained urine. Pateint was admitted for acute kidney injury secondary to obstructive uropathy. During hospitalization pateint was also noted to be in A fib for which he was asymptomatic. Acute kidney injury: Secondary to obstructive uropathy that did improve with placement of Serna catheter by urology. His urine culture is negative so antibiotic was discontinued. Concern for bladder mass and enlarged prostate will need cystoscopy and biopsy at one point. continue flomax PSA is elevated. Atrial fibrillation with rapid ventricular response rate not controlled yet . Will complete dig loading, continue with metoprolol. will hold off on starting anticoagulants right now in view of possible urologic procedure in near future Echo reviewed. Hypertension: We will hold his lisinopril in the setting of acute kidney injury and wobbly titrate up his beta shawn. Hyperlipidemia: Continue simvastatin DISPOSITION: Pending evaluation of his atrial fibrillation VS,Ty, I+O VS, Ty, I+O Laboratory Tests 10/11/18 05:36 Red Blood Count 4.38, Mean Corpuscular Volume 89.7, Mean Corpuscular Hemoglobin 29.9, Mean Corpuscular Hemoglobin Concent 33.3, Red Cell Distribution Width 13.5, Calcium Level 7.6 L Vital Signs Date Time Temp Pulse Resp B/P (MAP) Pulse Ox O2 Delivery O2 Flow Rate FiO2 10/11/18 12:29 140 10/11/18 12:14 142/78 10/11/18 11:49 98.1 20 94 10/08/18 23:00 Room Air I&O- Last 24 Hours up to 6 AM 10/11/18 06:00 Intake Total 3575 ml Output Total 4050 ml Balance -475 ml JOSE CRUZ BHATIA MD Oct 11, 2018 13:21
[2018-10-11 16:03] VITALS: BP 122/74
[2018-10-11 20:00] VITALS: BP 152/92
[2018-10-11] MEDS: SIMVASTATIN 5 MG TAB PO SCH (20:51)
[2018-10-11 23:59] VITALS: BP 162/94
[2018-10-12 04:00] VITALS: BP 158/108
[2018-10-12 05:22] VITALS: BP 142/78
[2018-10-12] MEDS: METOPROLOL TART 25 MG TABLET PO SCH (05:22)
[2018-10-12 05:26] LABS: HEMOGLOBIN 13.9 g/dl (13.5-17.5); MEAN CORPUSCULAR HEMOGLOBIN 29.8 pg (27.0-33.0); MEAN CORPUSCULAR HGB CONC 32.3 g/dl (32.0-36.5); MEAN CORPUSCULAR VOLUME 92.3 fl (80.0-96.0); PLATELET COUNT, AUTOMATED 274 10^3/uL (150-450); RED BLOOD COUNT 4.66 10^6/uL (4.30-6.10); WHITE BLOOD COUNT 8.1 10^3/uL (4.0-10.0)
[2018-10-12 05:53] LABS: BLOOD UREA NITROGEN 13 MG/DL (7-18); CARBON DIOXIDE LEVEL 24 MEQ/L (21-32); CHLORIDE LEVEL 108 MEQ/L (98-107); CREATININE FOR GFR 1.16 MG/DL (0.70-1.30); GLOMERULAR FILTRATION RATE > 60.0 (>42); GLUCOSE, FASTING 93 MG/DL (70-100); POTASSIUM SERUM 4.1 MEQ/L (3.5-5.1); SODIUM LEVEL 138 MEQ/L (136-145)
[2018-10-12 08:00] VITALS: BP 136/90
[2018-10-12] MEDS: DIGOXIN 0.125 MG TAB PO SCH (09:10)
[2018-10-12] MEDS: TAMSULOSIN 0.4 MG CAP PO SCH (09:10)
[2018-10-12] MEDS: OMEGA-3 1000MG CAPSULE PO SCH ×2 (09:11→21:08)
[2018-10-12] MEDS: METOPROLOL TARTRATE 100 MG TAB PO SCH ×2 (09:11→21:09)
--- NOTE | 2018-10-12 10:41 | IPNPDOC ---
Text Note Date of Service The patient was seen on 10/12/18. NOTE SUBJECTIVE: Pateint does not have any complaints this am . Does not have any p alpitations. No chest pain or SOB , No abdominal pain , nausea or vomiting or diarrhea. PHYSICAL EXAM: VITAL SIGNS: Please see below. GENERAL: Pleasant elderly man somewhat disheveled lying flat in bed in no acute distress awake alert oriented HEENT: Cranial nerves II through XII grossly intact CARDIOVASCULAR: S1-S2 1rregular at the time of my exam. RESPIRATORY: Clear to auscultation bilaterally. ABDOMINAL: Obese no suprapubic tenderness no CVA tenderness he has a Serna catheter in place with CBI running EXTREMITIES: No clubbing cyanosis or edema LABORATORY DATA, IMAGING STUDIES, MICROBIOLOGY: Reviewed. DVT prophylaxis ordered?: [place] ASSESSMENT AND PLAN: This is a 73-year-old man with Hypertension,hyperlipidemia, presents to the emergency room due to urinary urgency and frequency, dysuria that has been ongoing for the last 2 weeks and unable to void for 1 day. In the last 2 weeks, he says he has gone through two antibiotics for empiric treatment of urinary tract infection (UTI); one was Macrobid and his second one was ciprofloxacin. In the emergency room (ER), he had a urinalysis done, which showed it was positive for possible UTI. Of note, bladder scan did show that he was retaining approximately 150 mL of urine. Then, they straight catheterized (c athed) him for 600 mL. A renal ultrasound was done, which showed the possibility of a bladder mass and retained urine. Pateint was admitted for acute kidney injury secondary to obstructive uropathy. During hospitalization pateint was also noted to be in A fib for which he was asymptomatic. Acute kidney injury: Secondary to obstructive uropathy that did improve with placement of Serna catheter by urology. His urine culture is negative so antibiotic was discontinued. Concern for bladder mass and enlarged prostate will need cystoscopy and biopsy at one point. continue flomax PSA is elevated. Atrial fibrillation with rapid ventricular response rate better controlled this am continue dig and metoprolol will hold off on starting anticoagulants right now in view of possible urologic procedure in near future Echo reviewed. Hypertension: We will hold his lisinopril in the setting of acute kidney injury and titrate up his beta shawn. Hyperlipidemia: Continue simvastatin DVT prophylaxis has been ordered. VS,Fishbone, I+O VS, Fishbone, I+O Laboratory Tests 10/12/18 05:15 Red Blood Count 4.66, Mean Corpuscular Volume 92.3, Mean Corpuscular Hemoglobin 29.8, Mean Corpuscular Hemoglobin Concent 32.3, Red Cell Distribution Width 13.5, Calcium Level 8.0 L Vital Signs Date Time Temp Pulse Resp B/P (MAP) Pulse Ox O2 Delivery O2 Flow Rate FiO2 10/12/18 09:11 136/90 10/12/18 09:10 98 10/12/18 08:00 98.3 20 94 10/08/18 23:00 Room Air I&O- Last 24 Hours up to 6 AM0 10/12/18 06:00 Intake Total 1020 ml Output Total 3750 ml Balance -2730 ml JOSE CRUZ BHATIA MD Oct 12, 2018 10:40
[2018-10-12 12:00] VITALS: BP 138/92
[2018-10-12 16:00] VITALS: BP 136/82
[2018-10-12 20:00] VITALS: BP 138/88
[2018-10-12] MEDS: SIMVASTATIN 5 MG TAB PO SCH (21:08)
--- NOTE | 2018-10-12 21:43 | IPNPDOC ---
Date Seen The patient was seen on 10/12/18. Progress Note SUBJECTIVE: Patient is a73 yo male with staghorn type continuous shelf of stone with echo shadowing in the bladder seen on ultrasound. He is sitting in bed with gray. His is at his side. He asks about the timing of surgery. He is reassured surgery will proceed as soon as he is cleared. OBJECTIVE PHYSICAL EXAMINATION: VITAL SIGNS: Please see below. GENERAL: Pleasant elderly man somewhat disheveled lying flat in bed in no acute distress awake alert oriented HEENT: Cranial nerves II through XII grossly intact CARDIOVASCULAR: 1rregular rate and rythm at the time of my exam. RESPIRATORY: Clear to auscultation bilaterally. ABDOMINAL: Obese no suprapubic tenderness no CVA tenderness he has a Gray catheter in place with CBI running EXTREMITIES: No clubbing cyanosis or edema NEUROLOGICAL: slurred difficult to understand speech-much improved PSYCHOLOGICAL: normal affect and mood LABORATORY DATA, IMAGING STUDIES, MICROBIOLOGY: Please see below. Echocardiogram:IMPRESSION: 1. Normal global left ventricular systolic function with mild concentric left ventricular hypertrophy. Assessment of the left ventricular diastolic function was limited in view of the underlying atrial fibrillation. 2. Aortic valve sclerosis without stenosis or aortic regurgitation. 3. Mildly enlarged left atrium with mitral annulus calcification. No significant mitral regurgitation detected. 4. Mild tricuspid regurgitation with mild pulmonary hypertension and probably mildly enlarged right atrium. 5. Dilated aortic root at 4.5 cm. 6. Biatrial enlargement noted, is probably related to underlying atrial fibrillation. 7. Patient during the test was in atrial fibrillation at a heart rate that varied between 130 and 140 beats per minute at times. 8. The study was technically limited due to poor acoustic window. cardiology clearance pending. DVT prophylaxis ordered?: deferred until surgery offered per patient ASSESSMENT AND PLAN: This is a 73 yo white male. PROBLEMS: 1. large bladder stone (continuous shelf of stone): likely secondary to chronic stasis of urine from the obstruction (prostate, most likely). 2. bladder mass? underlying stone. the ureters are not likely covered by mass or stone given recovery of renal function with gray 3. new onset afib 4. urethral trauma. 5. urinary retention: gray for gravity 6. toshia: improved with gray DISPOSITION: defer surgery until cleared by cardiology and hospitalist team. VS, I&O, 24H, Fishbone Vital Signs/I&O Vital Signs Date Time Temp Pulse Resp B/P (MAP) Pulse Ox O2 Delivery O2 Flow Rate FiO2 10/12/18 16:00 98.6 105 20 136/82 (100) 95 10/08/18 23:00 Room Air I&O- Last 24 Hours up to 6 AM 10/12/18 06:00 Intake Total 1020 ml Output Total 3750 ml Balance -2730 ml Laboratory Data 24H LABS Laboratory Tests 2 10/12/18 05:15: Nucleated Red Blood Cells % (auto) 0.0, Anion Gap 6L, Glomerular Filtration Rate > 60.0, Blood Urea Nitrogen 13, Creatinine 1.16, Sodium Level 138, Potassium Level 4.1, Chloride Level 108H, Carbon Dioxide Level 24, Calcium Level 8.0L CBC/BMP Laboratory Tests 10/12/18 05:15 Red Blood Count 4.66, Mean Corpuscular Volume 92.3, Mean Corpuscular Hemoglobin 29.8, Mean Corpuscular Hemoglobin Concent 32.3, Red Cell Distribution Width 13.5, Calcium Level 8.0 L Microbiology Microbiology 10/10/18 Gastrointestinal Tract Panel (PCR) - Final, Complete 10/08/18 Urine Culture - Final, Complete Pham Cook MD Oct 12, 2018 21:02
[2018-10-13] VITALS (7 sets, daily range): BP systolic 122–148; BP diastolic 68–92
[2018-10-13 05:48] LABS: HEMATOCRIT 43.8 % (42.0-52.0); HEMOGLOBIN 14.2 g/dl (13.5-17.5); MEAN CORPUSCULAR HEMOGLOBIN 29.9 pg (27.0-33.0); MEAN CORPUSCULAR HGB CONC 32.4 g/dl (32.0-36.5); MEAN CORPUSCULAR VOLUME 92.2 fl (80.0-96.0); PLATELET COUNT, AUTOMATED 349 10^3/uL (150-450); RED BLOOD COUNT 4.75 10^6/uL (4.30-6.10); WHITE BLOOD COUNT 9.8 10^3/uL (4.0-10.0)
[2018-10-13 06:32] LABS: BLOOD UREA NITROGEN 12 MG/DL (7-18); CALCIUM LEVEL 7.7 MG/DL (8.8-10.2); CARBON DIOXIDE LEVEL 25 MEQ/L (21-32); CHLORIDE LEVEL 106 MEQ/L (98-107); CREATININE FOR GFR 1.13 MG/DL (0.70-1.30); DIGOXIN LEVEL 0.6 NG/ML (0.5-2.0); GLOMERULAR FILTRATION RATE > 60.0 (>42); GLUCOSE, FASTING 95 MG/DL (70-100); POTASSIUM SERUM 4.2 MEQ/L (3.5-5.1); SODIUM LEVEL 139 MEQ/L (136-145)
[2018-10-13] MEDS: TAMSULOSIN 0.4 MG CAP PO SCH (07:59)
[2018-10-13] MEDS: DIGOXIN 0.125 MG TAB PO SCH (07:59)
[2018-10-13] MEDS: OMEGA-3 1000MG CAPSULE PO SCH ×2 (07:59→21:38)
[2018-10-13] MEDS: METOPROLOL TARTRATE 100 MG TAB PO SCH ×2 (08:00→21:40)
--- NOTE | 2018-10-13 14:28 | CR ---
DATE OF CONSULTATION: 10/13/2018 DATE OF ADMISSION: 09/18/2018 REFERRING PROVIDER: Dr. Cassidy Forman REASON FOR THE CONSULT: Atrial fibrillation, preoperative evaluation. HISTORY OF PRESENT ILLNESS: 73-year-old male with a known history of hypertension and hypolipidemia who has been stable from a cardiac point of view without any prior history of atrial fibrillation, coronary artery disease, congestive heart failure, myocardial infarction for about 2-3 weeks prior to coming to the hospital in the setting of dysuria, polyuria and urinary hesitancy. He has had two courses of by mouth antibiotics and because he was not getting better he went to a local urgent care center and he was told to go to the ER for further evaluation. In the emergency room his blood pressure was elevated and further workup revealed a urinary tract infection with urinary retention, acute kidney injury. His EKG revealed atrial fibrillation with a rapid ventricular rate. Bladder ultrasound revealed an enlarged prostate of about 7.5 cm with a 5 cm echogenic mass at the base of urinary bladder. Surgery is being contemplated and cardiology consult was called. When I saw Mr. Kam Hale in the floor he was intubated in no acute distress. His is at bedside. He denies any prior history of chest pain. Prior to becoming sick, he has been very active and go up 1 flight of stairs without any chest pain. No shortness of breath. He denies any prior history of irregular heart rate or atrial fibrillation. He denies any pedal edema, focal manifestation, orthopnea, syncope or near syncope. He denies any cough of fever. He has nausea, vomiting, or diarrhea, melena or hematemesis. He stated that he has been going well and suddenly everything switched and now he has atrial fibrillation and a mas in his bladder. PAST MEDICAL HISTORY: He has a past medical history positive for hypertension, hyperlipidemia, BPH, and has had biopsy done in the past that was negative. There is no prior history of coronary artery disease, myocardial infarction, significant valvular heart disease, TIA/CVA, diabetes mellitus, prior history of kidney disease and prior history of atrial fibrillation. MEDICATION AT HOME: Lisinopril 30 mg by mouth daily and simvastatin 5 mg by mouth daily. CURRENT MEDICATIONS: Digoxin 0.125 mg by mouth daily, metoprolol tartrate 100 mg by mouth twice a day, simvastatin 5 mg by mouth, fish oil 2 capsules by mouth twice a day, tamsulosin 0.4 mg by mouth daily, Tylenol 63 mg every 4 hours as needed for mild pain or fever, ondansetron 4 mg IV every 6 hours as needed for nausea or vomiting. PAST SURGICAL HISTORY: Positive for tonsillectomy and hernia repair as a child. He also had a history of biopsy which was negative. FAMILY HISTORY: Noncontributory. He stated that his mother had Alzheimer's. There is no known history of coronary artery disease, myocardial infarction, cardiomyopathy. SOCIAL HISTORY: Patient lives with his and he does not smoke or abuse alcohol. He has been very active until this hospitalization. ALLERGIES: No known drug allergies. ADVANCED DIRECTIVES: PATIENT IS A FULL CODE. PHYSICAL EXAMINATION: GENERAL: Patient is alert and oriented, in no acute distress. VITAL SIGNS: His vital signs this morning revealed a blood pressure of 148/68 with a pulse of 127, respirations 18, oxygen saturation 96% on room air. Examination of the head, atraumatic. Neck is supple and no JVD or carotid bruits. Lungs have no significant wheezing or crackles. Heart examination revealed an irregular sound. The PMI is not displaced. There is no murmurs. Abdomen is soft with minimal tenderness in the suprapubic areas. Neurologic examination is negative. Peripheral pulses, dorsalis pedis and tibialis are palpated and equal, +2. LABS: CBC on 10/13/2018 revealed a WBC 9.8, hemoglobin 14.3, hematocrit 43.8 and platelets 249,000, BMP revealed a sodium of 139, potassium 4.2, chloride 106, CO2 25, BUN 12, creatinine 1.13, GFR more than 60, fasting glucose 95, and calcium 7.1. TSH on admission was 0.99. PSA was 45.0. Serum digoxin today is 0.6. Urinalysis on admission 10/10/2018 revealed +3 urine, +1 protein, +1 leukocyte esterase and +2 bacteria. Urine culture so far revealed negative for any growth. GI tract panel is negative for multiplex nucleide acid PCR. Electrocardiogram on 10/09/2018 revealed an irregular heart rhythm that seems to be atrial fibrillation and underlying artifact. There is underlying right bundle branch block. No specific STT abnormality. Echocardiogram on 10/09/2018 revealed a normal global left ventricular systolic function estimated at 60-65%, biatrial enlargement with mild valvular heart disease, dilated aortic root at 4.5 cm. Patient was in atrial fibrillation with a rapid ventricular rate between 130 and 140 beats per minute. IMPRESSION: 73-year-old male with a history of hypertension, hyperlipidemia, and diagnosed with atrial fibrillation who came to the hospital because of recurrent UTI and was found to have a bladder mass. The plan is to proceed with surgery. Prior to this the patient has been asymptomatic and very active without any chest pain or shortness of breath. There is no history of pedal edema, orthopnea, TIA/CVA, coronary syndrome/myocardial infarction. He is considered to be at low risk for this surgery and he may proceed as scheduled with the biopsy. In the meantime, I have discontinued his Digoxin and started him on Cardizem. He will continue the beta shawn. We will try to better control his heart rate prior to his surgery. If there is no contraindications, I will start him on IV heparin for now. Upon discharge he will benefit from chronic anticoagulation therapy unless there are some contraindications. In that case, he should he discharged home on the aspirin with or without Plavix. Hypertension, and this will addressed. Hyperlipemia on a statin. It was a pleasure to participate in the care of Mr. Kam Hale for his underlying cardiac condition. I will continue to monitor him along with you while in the hospital. Case was discussed earlier today with his hospitalists.
[2018-10-13] MEDS: SIMVASTATIN 5 MG TAB PO SCH (21:38)
--- NOTE | 2018-10-13 22:01 | IPNPDOC ---
Text Note Date of Service The patient was seen on 10/13/18. NOTE SUBJECTIVE: Patient does not have any complaints this am . Does not have any p alpitations. No chest pain or SOB , No abdominal pain , nausea or vomiting or diarrhea. His pulse is better controlled though still getting tachycardic on moving around. Will consult cardiology. PHYSICAL EXAM: VITAL SIGNS: Please see below. GENERAL: Pleasant elderly man somewhat disheveled lying flat in bed in no acute distress awake alert oriented HEENT: Cranial nerves II through XII grossly intact CARDIOVASCULAR: S1-S2 1rregular at the time of my exam. RESPIRATORY: Clear to auscultation bilaterally. ABDOMINAL: Obese no suprapubic tenderness no CVA tenderness he has a Serna cath eter in place with CBI running EXTREMITIES: No clubbing cyanosis or edema LABORATORY DATA, IMAGING STUDIES, MICROBIOLOGY: Reviewed. DVT prophylaxis ordered?: Sequentials josis ASSESSMENT AND PLAN: This is a 73-year-old man with Hypertension,hyperlipidemia, presents to the emergency room due to urinary urgency and frequency, dysuria that has been ongoing for the last 2 weeks and unable to void for 1 day. In the last 2 weeks, he says he has gone through two antibiotics for empiric treatment of urinary tract infection (UTI); one was Macrobid and his second one was ciprofloxacin. In the emergency room (ER), he had a urinalysis done, which showed it was positive for possible UTI. Of note, bladder scan did show that he was retaining approximately 150 mL of urine. Then, they straight catheterized (cathed) him for 600 mL. A renal ultrasound was done, which showed the possibility of a bladder mass and retained urine. Pateint was admitted for acute kidney injury secondary to obstructive uropathy. During hospitalization pateint was also noted to be in A fib for which he was asymptomatic. Acute kidney injury: Secondary to obstructive uropathy that did improve with placement of Serna ca theter by urology. His urine culture is negative so antibiotic was discontinued. Concern for bladder mass and enlarged prostate will need cystoscopy and biopsy at one point. continue flomax PSA is elevated. Atrial fibrillation with rapid ventricular response rate better controlled this am on Diltiazem and metoprolol will hold off on starting anticoagulants right now in view of possible urologic procedure in near future Echo reviewed. Dr Faye following. . Digoxin was changed to diltiazem this am. Hypertension: We will hold his lisinopril in the setting of acute kidney injury and titrate up his beta shawn. Hyperlipidemia: Continue simvastatin DVT prophylaxis has been ordered. VS,Joshuae, I+O VS, Joshuae, I+O Laboratory Tests 10/13/18 05:13 Red Blood Count 4.75, Mean Corpuscular Volume 92.2, Mean Corpuscular Hemoglobin 29.9, Mean Corpuscular Hemoglobin Concent 32.4, Red Cell Distribution Width 13.3, Calcium Level 7.7 L Vital Signs Date Time Temp Pulse Resp B/P (MAP) Pulse Ox O2 Delivery O2 Flow Rate FiO2 10/13/18 21:40 139 138/86 10/13/18 20:00 97.7 16 94 10/08/18 23:00 Room Air I&O- Last 24 Hours up to 6 AM 10/13/18 06:00 Intake Total 1200 ml Output Total 1250 ml Balance -50 ml JOSE CRUZ BHATIA MD Oct 13, 2018 22:01
[2018-10-14 04:00] VITALS: BP 123/73
[2018-10-14 06:09] LABS: HEMATOCRIT 43.5 % (42.0-52.0); HEMOGLOBIN 14.4 g/dl (13.5-17.5); MEAN CORPUSCULAR HEMOGLOBIN 30.1 pg (27.0-33.0); MEAN CORPUSCULAR HGB CONC 33.1 g/dl (32.0-36.5); MEAN CORPUSCULAR VOLUME 90.8 fl (80.0-96.0); PLATELET COUNT, AUTOMATED 340 10^3/uL (150-450); RED BLOOD COUNT 4.79 10^6/uL (4.30-6.10); WHITE BLOOD COUNT 11.2 10^3/uL (4.0-10.0)
[2018-10-14 06:34] LABS: CALCIUM LEVEL 7.8 MG/DL (8.8-10.2); CREATININE FOR GFR 1.25 MG/DL (0.70-1.30); GLOMERULAR FILTRATION RATE 59.9 (>42); POTASSIUM SERUM 4.1 MEQ/L (3.5-5.1)
[2018-10-14 07:49] VITALS: BP 150/104
[2018-10-14 09:25] VITALS: BP 125/80
[2018-10-14] MEDS: METOPROLOL TARTRATE 100 MG TAB PO SCH ×2 (09:26→22:02)
[2018-10-14] MEDS: OMEGA-3 1000MG CAPSULE PO SCH ×2 (09:26→22:01)
[2018-10-14] MEDS: TAMSULOSIN 0.4 MG CAP PO SCH (09:26)
--- NOTE | 2018-10-14 10:56 | IPNPDOC ---
Date Seen The patient was seen on 10/14/18. Progress Note SUBJECTIVE: Patient is a73 yo male with staghorn type continuous shelf of stone with echo shadowing in the bladder seen on ultrasound. He is sitting in bed with gray. His is at his side. He asks about the timing of surgery. We discussed that cardiology cleared him based on cardiology last note yesterday pm. Discussed with Dr. Forman that I would let the patient and Dr. Blanco know that I will ask Dr. Blanco to operate. 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 He's already had breakfast. He will be made NPO after MN tonight to see if Dr. Blanco can fit him on the OR schedule some time in the next 2days. OBJECTIVE PHYSICAL EXAMINATION: VITAL SIGNS: Please see below. GENERAL: Pleasant elderly man somewhat disheveled lying flat in bed in no acute distress awake alert oriented HEENT: Cranial nerves II through XII grossly intact CARDIOVASCULAR: 1rregular rate and rythm at the time of my exam. RESPIRATORY: Clear to auscultation bilaterally. ABDOMINAL: Obese no suprapubic tenderness no CVA tenderness he has a Gray catheter in place with CBI running EXTREMITIES: No clubbing cyanosis or edema NEUROLOGICAL: slurred difficult to understand speech-much improved PSYCHOLOGICAL: normal affect and mood LABORATORY DATA, IMAGING STUDIES, MICROBIOLOGY: Please see below. Echocardiogram: see 10/12/18 note. ASSESSMENT AND PLAN: This is a 73yo male with bladder stone and possible underlying prostate mass. Pt also has enlarged prostate and elevated psa. Psa could be markedly elevated secondary to obstruction. Consider laser litho v open cystotomy to remove stone whole,trus biopsy if negative-prostate button turp and possible turbt. PROBLEMS: 1. stone in bladder: source probably the prostate enlargement could also be underlying bladder mass. 2. NPO after MN for possible procedure v. elective timing of surgery as out patient. Anticoag deferred until surgery planned and recovered. 3. repeat psa f/t since pt has had the gray for several days without obst ruction 4. urine culture to date negative. PATIENT: NATIVIDAD RUTH LOC: M [facility] U #: [id number] AGE/SX: 73/M [place]OM: [facility] [place]10/08[place]: CLINT COOK MD : [id number] BED: 01 DIS: STATUS: ADM Wade TLOC: -------- SPEC #: [id number] OVI: 10/08/18 STATUS: COMP REQ #: [id number] RECD: 10/08/[address]: Allen Cortes MD SOURCE: URINE CC ENTR: 10/08/[address]: Samantha Earl LAC SPDESC: COMP: 10/09/18 ORDERED: RFX URINE CULT ACT WKST: NEW 10/09/18 #1 --- Procedure Result Site REFLEX URINE CULTURE Final FULL REPORT IN LAB NOTES (eCW and [facility]). NO GROWTH 5. WBC slight elevated. Stable HCT and normalized creatinine in the normal range since gray placed. 6. d/w patient and his the options;how dr. blanco will have to decide what he does best in his hands after reviewing data and imaging. DISPOSITION: per hospitalist team. VS, I&O, 24H, Ty Vital Signs/I&O Vital Signs Date Time Temp Pulse Resp B/P (MAP) Pulse Ox O2 Delivery O2 Flow Rate FiO2 10/14/18 09:25 102 125/80 (95) 10/14/18 07:49 97.8 18 98 10/08/18 23:00 Room Air I&O- Last 24 Hours up to 6 AM 10/14/18 06:00 Intake Total 1600 ml Output Total 4500 ml Balance -2900 ml Laboratory Data 24H LABS Laboratory Tests 2 10/14/18 05:53: Nucleated Red Blood Cells % (auto) 0.0, Anion Gap 5L, Glomerular Filtration Rate 59.9, Blood Urea Nitrogen 14, Creatinine 1.25, Sodium Level 139, Potassium Level 4.1, Chloride Level 106, Carbon Dioxide Level 28, Calcium Level 7.8L CBC/BMP Laboratory Tests 10/14/18 05:53 Red Blood Count 4.79, Mean Corpuscular Volume 90.8, Mean Corpuscular Hemoglobin 30.1, Mean Corpuscular Hemoglobin Concent 33.1, Red Cell Distribution Width 13.5, Calcium Level 7.8 L Microbiology Microbiology 10/10/18 Gastrointestinal Tract Panel (PCR) - Final, Complete 10/08/18 Urine Culture - Final, Complete Pham Cook MD Oct 14, 2018 10:55
[2018-10-14] MEDS ORDERED: ISOVUE-370 76% 100ML VIAL (Q9967) As Ordered ONE (11:07)
--- NOTE | 2018-10-14 11:48 | REP ---
Clinical: Chest pain with elevated PSA levels and history of bladder stone. Technique: Axial contrast enhanced images from the thoracic inlet to the upper abdomen with coronal and sagittal re-formations. Findings: Subtle right lower lobe tree in bud type infiltrates are appreciated along with small left lower lobe ill-defined area of atelectasis/consolidation. No effusion. No pneumothorax. No significant adenopathy. Mediastinum demonstrates atherosclerotic changes to the thoracic aorta and coronary arteries without aortic aneurysm or cardiomegaly. No pericardial effusion. Surrounding musculoskeletal structures are intact without focal osseous abnormality. Impression: Mild bibasilar infiltrate/atelectasis. Electronically Signed by Torres Zapata MD 10/14/2018 11:40 A
--- NOTE | 2018-10-14 11:54 | REP ---
Clinical: Abdominal pain with elevated PSA levels and bladder stone. Technique: Axial precontrast, contrast enhanced, and delayed images of the abdomen and pelvis using 100 ml Isovue 370 intravenous contrast material with coronal and sagittal re-formations. Findings: Lung bases demonstrate minimal bibasilar infiltrates and atelectasis. Liver, spleen, pancreas, gallbladder, and bilateral adrenal glands are normal. The kidneys demonstrate bilateral renal cysts (right greater than left) with right-sided cysts measuring up to 7.7 cm maximal diameter and left-sided cysts measuring up to 2.1 cm maximal diameter. 2 mm nonobstructing left intrarenal calculus also identified. While no significant hydroureteronephrosis is appreciated, there is a 14 mm calculus at the right ureterovesical junction which may be causing partial obstruction as well as a 5 cm bladder stone. The bladder is collapsed and bladder wall thickening cannot be excluded there is also evidence for small mass extending along the posterior base of the bladder which may be related to the underlying enlarged prostate gland measuring approximately 8 cm maximal diameter. Serna catheter noted in bladder. The enteric system is without obstruction or acute inflammatory process. Scattered sigmoid diverticula noted without acute diverticulitis. No ascites. No free air. No obvious adenopathy. Abdominal aorta without aneurysm or dissection. Musculoskeletal structures demonstrate degenerative changes without focal osseous abnormality identified. Impression: 1. Considerable urinary tract findings as described above including 14 mm possibly partially obstructing right UVJ stone, 2 mm nonobstructing left renal calculus, and 5 cm bladder stone. 2. The bladder itself demonstrates a mild wall thickening which may be secondary to chronic outlet obstruction secondary to enlarged prostate gland measuring 8 cm diameter with suspected mass-like protrusion along the left posterior aspect of the bladder less likely representing discrete bladder mass. 3. Sigmoid diverticula without acute diverticulitis. 4. Further chronic changes as described above including bilateral renal cysts (right greater than left). Electronically Signed by Torres Zapata MD 10/14/2018 11:45 A
--- NOTE | 2018-10-14 13:14 | IPNPDOC ---
Text Note Date of Service The patient was seen on 10/14/18. NOTE SUBJECTIVE: Patient does not have any complaints this am . Does not have any p alpitations. No chest pain or SOB , No abdominal pain , nausea or vomiting or diarrhea. His pulse is better controlled though still getting tachycardic on moving around. PHYSICAL EXAM: VITAL SIGNS: Please see below. GENERAL: Pleasant elderly man somewhat disheveled lying flat in bed in no acute distress awake alert oriented HEENT: Cranial nerves II through XII grossly intact CARDIOVASCULAR: S1-S2 1rregular at the time of my exam. RESPIRATORY: Clear to auscultation bilaterally. ABDOMINAL: Obese no suprapubic tenderness no CVA tenderness he has a Serna catheter in place with CBI running EXTREMITIES: No clubbing cyanosis or edema LABORATORY DATA, IMAGING STUDIES, MICROBIOLOGY: Reviewed. DVT prophylaxis ordered?: Sequentials teds ASSESSMENT AND PLAN: This is a 73-year-old man with Hypertension,hyperlipidemia, presents to the emergency room due to urinary urgency and frequency, dysuria that has been ongoing for the last 2 weeks and unable to void for 1 day. In the last 2 weeks, he says he has gone through two antibiotics for empiric treatment of urinary tract infection (UTI); one was Macrobid and his second one was ciprofloxacin. In the emergency room (ER), he had a urinalysis done, which showed it was positive for possible UTI. Of note, bladder scan did show that he was retaining approximately 150 mL of urine. Then, they straight catheterized (cathed) him for 600 mL. A renal ultrasound was done, which showed the possibility of a bladder mass and retained urine. Pateint was admitted for acute kidney injury secondary to obstructive uropathy. During hospitalization pateint was also noted to be in A fib for which he was asymptomatic. Atrial fibrillation with rapid ventricular response rate better controlled this am on Diltiazem and metoprolol will hold off on starting anticoagulants right now in view of possible urologic procedure in the next 1-[address] Yunier tapia. Acute kidney injury: Secondary to obstructive uropathy that improved with placement of Serna catheter by urology. His urine culture is negative so antibiotic was discontinued. Enlarged prostate with mass like protrution in the bladder causing outlet obstruction. Persistently high PSA Concern for Prostate cancer vs BPH with primary bladder mass. Will need cystoscopy and biopsy will try to get it done in hospital prior to starting oral anticoagulant. continue flomax Bladder sone, right UVJ 14 mm stone and left intrarenal stone needs cystoscopy urology will schedule when OR available. IF procedure cannot be done in next 1-2 days then will schedule as outpatient by Dr Davis. Hypertension: We will hold his lisinopril in the setting of acute kidney injury and titrate up his beta shawn. Hyperlipidemia: Continue simvastatin DVT prophylaxis has been ordered. VS,Fishbone, I+O VS, Fishbone, I+O Laboratory Tests 10/14/18 05:53 Red Blood Count 4.79, Mean Corpuscular Volume 90.8, Mean Corpuscular Hemoglobin 30.1, Mean Corpuscular Hemoglobin Concent 33.1, Red Cell Distribution Width 13.5, Calcium Level 7.8 L Vital Signs Date Time Temp Pulse Resp B/P (MAP) Pulse Ox O2 Delivery O2 Flow Rate FiO2 10/14/18 09:25 102 125/80 (95) 10/14/18 07:49 97.8 18 98 10/08/18 23:00 Room Air I&O- Last 24 Hours up to 6 AM 10/14/18 06:00 Intake Total 1600 ml Output Total 4500 ml Balance -2900 ml JOSE CRUZ BHATIA MD Oct 14, 2018 13:14
[2018-10-14] MEDS: HEPARIN SOD (PORCINE) 5000 UNITS/ML VIAL SQ SCH ×2 (13:18→22:03)
[2018-10-14 15:47] VITALS: BP 137/90
[2018-10-14 20:00] VITALS: BP 128/79
[2018-10-14] MEDS: SIMVASTATIN 5 MG TAB PO SCH (22:01)
[2018-10-15] VITALS: BP 108/67
[2018-10-15 05:32] LABS: HEMATOCRIT 42.8 % (42.0-52.0); HEMOGLOBIN 14.1 g/dl (13.5-17.5); MEAN CORPUSCULAR HEMOGLOBIN 29.7 pg (27.0-33.0); MEAN CORPUSCULAR HGB CONC 32.9 g/dl (32.0-36.5); MEAN CORPUSCULAR VOLUME 90.3 fl (80.0-96.0); PLATELET COUNT, AUTOMATED 374 10^3/uL (150-450); RED BLOOD COUNT 4.74 10^6/uL (4.30-6.10); WHITE BLOOD COUNT 11.6 10^3/uL (4.0-10.0)
[2018-10-15 05:55] LABS: BLOOD UREA NITROGEN 12 MG/DL (7-18); CALCIUM LEVEL 8.1 MG/DL (8.8-10.2); CARBON DIOXIDE LEVEL 27 MEQ/L (21-32); CHLORIDE LEVEL 104 MEQ/L (98-107); CREATININE FOR GFR 1.16 MG/DL (0.70-1.30); GLOMERULAR FILTRATION RATE > 60.0 (>42); GLUCOSE, FASTING 92 MG/DL (70-100); POTASSIUM SERUM 4.1 MEQ/L (3.5-5.1); SODIUM LEVEL 136 MEQ/L (136-145)
--- NOTE | 2018-10-15 07:53 | IPN ---
DATE: 10/14/2018 Mr. Kam Hale was seen early this morning, he was sitting up in his bed and having lunch. His is at bedside. He was initially seen yesterday for his atrial fibrillation that was newly diagnosed and prior to going for urological surgery. He as admitted with obstructive uropathy and was found to have a gladis in the gallbladder versus a staghorn gallstone. His kidney functions have improved significantly and back to normal with Serna catheter insertion. The immediate plan is to proceed with surgery, probably tomorrow, 10/15/2018. Mr. Kam Hale was initially seen yesterday and at that time he was in atrial fibrillation with a rapid ventricular rate. His digoxin was discontinued and I have added a short-acting calcium channel shawn to his metoprolol. He denies any chest pain, shortness of breath, palpitations. He has no prior history of atrial fibrillation. Currently, he is not on anticoagulation pending surgery. On physical examination, patient is alert and oriented, in no acute distress at rest. His vital signs when saw him earlier today revealed a blood pressure of 125/80 with a pulse that varies between 80 and 102, respirations 18 and his maximum temperature was 97.8 degrees Fahrenheit with an oxygen saturation of 98% on room air. He has a negative fluid balance of 2.3 liters for 10/13/2018. Examination of the head, atraumatic. Neck is supple. No jugular venous distention (JVD) or carotid bruits are appreciated. The lungs did not reveal any wheezing or crackles. The heart examination revealed an irregular heart sound without gallops. The PMI is not displaced. There is no rub. I could not elicit any murmurs. Abdomen is soft and nontender. Extremities reveal no pedal edema. Neurological examination is negative for focal deficits. LABS: CBC done today revealed a WBC of 11.2, hemoglobin 14.4, hematocrit 43.5, and platelets 340,000. BMP revealed a sodium of 139, potassium 4.1, chloride 106, CO2 28, BUN 14, creatinine 1.25, GFR 59.9, fasting glucose 92, calcium 7.8. Serum PSA was 33.6. Next, chest CT done earlier today revealed mild bibasilar infiltrates/atelectasis. No pneumothorax. Atherosclerotic changes were noted in the thoracic aorta and coronary arteries. No aneurysm or cardiomegaly. No pericardial effusion. Abdominal/pelvic CT done today, 10/14/2018, revealed a 14 mm partially obstructing right ureterovesical junction (UVJ) stone, a 2 mm nonobstructive left renal calculus and a 5 mm bladder stone. The bladder wall is thickened. It may be related to chronic outlet obstruction secondary to an enlarged prostate measuring 8 cm in diameter with a suspected mass lesion protruding along the left posterior aspect of the bladder. Sigmoid diverticula without acute diverticulitis noted. IMPRESSION: 1. Atrial fibrillation, newly diagnosed during this hospitalization, but is probably chronic in view of the findings on the echocardiogram. It is now under control with the short-acting calcium channel shawn and the beta-shawn and he will continue the same. He is currently not on anticoagulation therapy pending his surgery. His echocardiogram revealed a normal left ventricular ejection fraction (LVEF). I will monitor him along with you as needed while he is in the hospital. 2. Kidney stones/benign prostatic hypertrophy (BPH). This is being evaluated by urology. He will need surgery, probably tomorrow 10/15/2018. He should receive his beta-shawn and his calcium channel shawn prior to his surgery. After the surgery, if there is no contraindication, he should be started on anticoagulation therapy. 3. Hypertension. Under control. 4. Hyperlipidemia. On a statin. 5. Coronary artery atherosclerosis. He will benefit from further evaluation in the future and this can be done as an outpatient. He will benefit from further cardiac evaluation in the future and this can be done as an outpatient. It was a pleasure to participate in the care of Mr. Kam Hale for his underlying cardiac condition. I will continue to monitor along with you. Dr. Lockwood will be covering tomorrow and on Monday. Please do not hesitate to call if you have any questions.
[2018-10-15 08:00] VITALS: BP 122/60
[2018-10-15] MEDS: OMEGA-3 1000MG CAPSULE PO SCH ×2 (09:09→21:09)
[2018-10-15] MEDS: TAMSULOSIN 0.4 MG CAP PO SCH (09:09)
[2018-10-15] MEDS: METOPROLOL TARTRATE 100 MG TAB PO SCH ×2 (09:10→21:10)
[2018-10-15] MEDS: HEPARIN SOD (PORCINE) 5000 UNITS/ML VIAL SQ SCH ×2 (09:10→21:09)
[2018-10-15] MEDS ORDERED: SENOKOT S TAB PO SCH (09:45)
[2018-10-15] MEDS ORDERED: BISACODYL 10 MG SUPP PR PRN (09:45)
--- NOTE | 2018-10-15 12:54 | IPNPDOC ---
Assessment/Plan Date Seen The patient was seen on 10/15/18. Patient Summary This is a 73 y/o M admitted w/ LOS due to urinary retention and found to have a large bladder stone, an elevated PSA, and a right ureteral stone. He was also diagnosed w/ atrial fibrillation and is waiting to start anticoag for this. I discussed w/ the patient that the elevated PSA could be due to him being in retention as well as due to prostate irritation from the large bladder stone. His urinary retention has been addressed w/ Serna catheter placement, but the bladder stone will need to be addressed and then the PSA rechecked a few wks later before an accurate value can be obtained. The patient was also found to have a 14mm right UVJ stone. The patient has no pain from this. I recommended taking him to the OR for cystoscopy, cystolitholapaxy, and right ureteroscopy w/ laser lithotripsy, and possible right ureteral stent placement prior to starting his anticoagulation. Plan/VTE VTE Prophylaxis Ordered?: Yes VTE Exclusion Mechanical Proph: N/A:VTE Prophy Ordered VTE Exclusion Pharmacological: N/A:VTE Prophy Ordered Plan/Urinary Catheter Reason for insertion/continuin: Acute obstruct/retention Plan - plan OR on Monday for cystoscopy, cystolitholapaxy, and right ureteroscopy w/ laser lithotripsy, and possible right ureteral stent placement - should be able to start full dose anticoagulation once his bladder stone is removed - will f/u on elevated PSA w/ a repeat PSA approximately 4 wks after bladder stone removal - please make patient NPO at midnight evening Subjective Review oF Systems Chief Complaint The patient is a 73-year-old male admitted with a reason for visit of [place],Urinary Retention,Uti. Events since Last Encounter No acute events o/n. Patient denies pain. Objective Physical Examination General Exam: Alert, Cooperative Neuro Exam: Normal Speech Psych Exam: Mental status NL, Mood NL Other physical findings catheter in place, draining clear urine Vital Signs/I&O Vital Signs Date Time Temp Pulse Resp B/P (MAP) Pulse Ox O2 Delivery O2 Flow Rate FiO2 10/15/18 09:10 94 122/60 10/15/18 08:00 97.4 17 92 I&O- Last 24 Hours up to 6 AM 10/15/18 06:00 Intake Total 1060 ml Output Total 1900 ml Balance -840 ml Laboratory Data Labs 24H Laboratory Tests 2 10/15/18 05:19: Nucleated Red Blood Cells % (auto) 0.0, Anion Gap 5L, Glomerular Filtration Rate > 60.0, Blood Urea Nitrogen 12, Creatinine 1.16, Sodium Level 136, Potassium Level 4.1, Chloride Level 104, Carbon Dioxide Level 27, Calcium Level 8.1L CBC/BMP Laboratory Tests 10/15/18 05:19 Red Blood Count 4.74, Mean Corpuscular Volume 90.3, Mean Corpuscular Hemoglobin 29.7, Mean Corpuscular Hemoglobin Concent 32.9, Red Cell Distribution Width 13.5, Calcium Level 8.1 L Microbiology Microbiology 10/10/18 Gastrointestinal Tract Panel (PCR) - Final, Complete 10/08/18 Urine Culture - Final, Complete ALISSON LEYVA MD Oct 15, 2018 12:54
--- NOTE | 2018-10-15 13:44 | IPNPDOC ---
Text Note Date of Service The patient was seen on 10/15/18. NOTE SUBJECTIVE: Patient does not have any complaints this am . Does not have any p alpitations. No chest pain or SOB , No abdominal pain , nausea or vomiting or diarrhea. His pulse is better controlled though still getting tachycardic on moving around. Discussed with Dr Davis. He will be able to do the urological procedure on 10/17/18. Was evaluated by PT today and has not cleared it. Will need 1 more session. PHYSICAL EXAM: VITAL SIGNS: Please see below. GENERAL: Pleasant elderly man somewhat disheveled lying flat in bed in no acute distress awake alert oriented HEENT: Cranial nerves II through XII grossly intact CARDIOVASCULAR: S1-S2 1rregular at the time of my exam. RESPIRATORY: Clear to auscultation bilaterally. ABDOMINAL: Obese no suprapubic tenderness no CVA tenderness he has a Serna catheter in place with CBI running EXTREMITIES: No clubbing cyanosis or edema LABORATORY DATA, IMAGING STUDIES, MICROBIOLOGY: Reviewed. DVT prophylaxis ordered?: Sequentials teds ASSESSMENT AND PLAN: This is a 73-year-old man with Hypertension,hyperlipidemia, presents to the emergency room due to urinary urgency and frequency, dysuria that has been ongoing for the last 2 weeks and unable to void for 1 day. In the last 2 weeks, he says he has gone through two antibiotics for empiric treatment of urinary tract infection (UTI); one was Macrobid and his second one was ciprofloxacin. In the emergency room (ER), he had a urinalysis done, which showed it was positive for possible UTI. Of note, bladder scan did show that he was retaining approximately 150 mL of urine. Then, they straight catheterized (cathed) him for 600 mL. A renal ultrasound was done, which showed the possibility of a bladder mass and retained urine. Pateint was admitted for acute kidney injury secondary to obstructive uropathy. During hospitalization pateint was also noted to be in A fib for which he was asymptomatic. Atrial fibrillation with rapid ventricular response rate controlled this am on Diltiazem and metoprolol will hold off on starting anticoagulants right now in view of possible urologic procedure in the next 1-[address] Faye following. Acute kidney injury: Secondary to obstructive uropathy that improved with placement of Serna catheter by urology. His urine culture is negative so antibiotic was discontinued. Enlarged prostate with mass like protrution in the bladder causing outlet obstruction. Persistently high PSA Concern for Prostate cancer vs BPH with primary bladder mass. Will need cystoscopy and biopsy will try to get it done in hospital prior to starting oral anticoagulant. Possibly on 10/17/18 continue flomax Bladder sone, right UVJ 14 mm stone and left intrarenal stone needs cystoscopy urology will schedule when OR available. IF procedure cannot be done in next 1-2 days then will schedule as outpatient by Dr Davis. Hypertension: controlled We will hold his lisinopril in the setting of recent acute kidney injury and titrate up his beta shawn. can resume lisinopril on discharge. Hyperlipidemia: Continue simvastatin DVT prophylaxis has been ordered. VS,Fishbone, I+O VS, Fishbone, I+O Laboratory Tests 10/15/18 05:19 Red Blood Count 4.74, Mean Corpuscular Volume 90.3, Mean Corpuscular Hemoglobin 29.7, Mean Corpuscular Hemoglobin Concent 32.9, Red Cell Distribution Width 13.5, Calcium Level 8.1 L Vital Signs Date Time Temp Pulse Resp B/P (MAP) Pulse Ox O2 Delivery O2 Flow Rate FiO2 10/15/18 09:10 94 122/60 10/15/18 08:00 97.4 17 92 I&O- Last 24 Hours up to 6 AM 10/15/18 05:59 Intake Total 1040 ml Output Total 2450 ml Balance -1410 ml JOSE CRUZ BHATIA MD Oct 15, 2018 13:43
[2018-10-15] MEDS: SENOKOT S TAB PO SCH (14:12)
[2018-10-15 16:00] VITALS: BP 131/84
[2018-10-15 20:00] VITALS: BP 132/86
[2018-10-15] MEDS: SIMVASTATIN 5 MG TAB PO SCH (21:10)
[2018-10-15 23:59] VITALS: BP 115/76
[2018-10-16 04:15] LABS: HEMATOCRIT 43.3 % (42.0-52.0); HEMOGLOBIN 14.1 g/dl (13.5-17.5); MEAN CORPUSCULAR HGB CONC 32.6 g/dl (32.0-36.5); MEAN CORPUSCULAR VOLUME 92.1 fl (80.0-96.0); PLATELET COUNT, AUTOMATED 346 10^3/uL (150-450); WHITE BLOOD COUNT 9.9 10^3/uL (4.0-10.0)
[2018-10-16 04:45] VITALS: BP 124/77
[2018-10-16 04:48] LABS: CREATININE FOR GFR 1.26 MG/DL (0.70-1.30); GLOMERULAR FILTRATION RATE 59.4 (>42); POTASSIUM SERUM 4.3 MEQ/L (3.5-5.1)
[2018-10-16 08:00] VITALS: BP 112/81
--- NOTE | 2018-10-16 08:30 | IPNPDOC ---
Date Seen The patient was seen on 10/16/18. Progress Note SUBJECTIVE:Pt worked with therapy, and voiced concerns about tomorrow's cystoscopy. "Just worried about it, that's all." no c/o chest pain, pressure, tightness. Tele had transient <20 second of 140 hr while pt was getting into bed, but subsided without intervention. no drop in BP and no sob. Per urology, "- plan OR on Monday for cystoscopy, cystolitholapaxy, and right ureteroscopy w/ laser lithotripsy, and possible right ureteral stent placement- should be able to start full dose anticoagulation once his bladder stone is removed- will f/u on elevated PSA w/ a repeat PSA approximately 4 wks after bladder stone removal- please make patient NPO at midnight evening" PHYSICAL EXAM: VITAL SIGNS: Please see below. GENERAL: Pleasant elderly man somewhat disheveled lying flat in bed in no acute distress awake alert oriented HEENT: Cranial nerves II through XII grossly intact CARDIOVASCULAR: S1-S2 1rregular at the time of my exam. RESPIRATORY: Clear to auscultation bilaterally. ABDOMINAL: Obese no suprapubic tenderness no CVA tenderness he has a Serna catheter in place with CBI running EXTREMITIES: No clubbing cyanosis or edema LABORATORY DATA, IMAGING STUDIES, MICROBIOLOGY: Reviewed. DVT prophylaxis ordered?: [place] ASSESSMENT AND PLAN: This is a 73-year-old man with Hypertension,hyperlipidemia, presents to the emergency room due to urinary urgency and frequency, dysuria that has been ongoing for the last 2 weeks and unable to void for 1 day. In the last 2 weeks, he says he has gone through two antibiotics for empiric treatment of urinary tract infection (UTI); one was Macrobid and his second one was ciprofloxacin. In the emergency room (ER), he had a urinalysis done, which showed it was positive for possible UTI. Of note, bladder scan did show that he was retaining approximately 150 mL of urine. Then, they straight catheterized (cathed) him for 600 mL. A renal ultrasound was done, which showed the possibility of a bladder mass and retained urine. Pateint was admitted for acute kidney injury secondary to obstructive uropathy. During hospitalization pateint was also noted to be in A fib for which he was asymptomatic. Atrial fibrillation with rapid ventricular response rate controlled this am on Diltiazem and metoprolol will hold off on starting anticoagulants right now in view of possible urologic procedure in the next 1-[address] Yunier tapia. Acute kidney injury: Secondary to obstructive uropathy that improved with placement of Serna catheter by urology. His urine culture is negative so antibiotic was discontinued. Enlarged prostate with mass like protrution in the bladder causing outlet obst ruction. Persistently high PSA Concern for Prostate cancer vs BPH with primary bladder mass. Will need cystoscopy and biopsy will try to get it done in hospital prior to starting oral anticoagulant. Possibly on 10/17/18 continue flomax - plan OR on Monday for cystoscopy, cystolitholapaxy, and right ureteroscopy w/ laser lithotripsy, and possible right ureteral stent placement - should be able to start full dose anticoagulation once his bladder stone is removed - will f/u on elevated PSA w/ a repeat PSA approximately 4 wks after bladder stone removal - please make patient NPO at midnight Tu evening Bladder stone, right UVJ 14 mm stone and left intrarenal stone needs cystoscopy urology will schedule when OR available. IF procedure cannot be done in next 1-2 days then will schedule as outpatient by Dr Davis. - plan OR on Monday for cystoscopy, cystolitholapaxy, and right ureteroscopy w/ laser lithotripsy, and possible right ureteral stent placement - should be able to start full dose anticoagulation once his bladder stone is removed - will f/u on elevated PSA w/ a repeat PSA approximately 4 wks after bladder stone removal - please make patient NPO at midnight Tu evening Hypertension: controlled We will hold his lisinopril in the setting of recent acute kidney injury and titrate up his beta shawn. can resume lisinopril on discharge. Hyperlipidemia: Continue simvastatin DVT prophylaxis has been ordered. VS, I&O, 24H, Fishbone Vital Signs/I&O Vital Signs Date Time Temp Pulse Resp B/P (MAP) Pulse Ox O2 Delivery O2 Flow Rate FiO2 10/15/18 23:59 98.7 77 20 115/76 (89) 97 I&O- Last 24 Hours up to 6 AM 10/16/18 06:00 Intake Total 720 ml Output Total 1450 ml Balance -730 ml Laboratory Data 24H LABS Laboratory Tests 2 10/15/18 05:19: Nucleated Red Blood Cells % (auto) 0.0, Anion Gap 5L, Glomerular Filtration Rate > 60.0, Blood Urea Nitrogen 12, Creatinine 1.16, Sodium Level 136, Potassium Level 4.1, Chloride Level 104, Carbon Dioxide Level 27, Calcium Level 8.1L 10/16/18 03:59: Nucleated Red Blood Cells % (auto) 0.0 CBC/BMP Laboratory Tests 10/15/18 05:19 Red Blood Count 4.74, Mean Corpuscular Volume 90.3, Mean Corpuscular Hemoglobin 29.7, Mean Corpuscular Hemoglobin Concent 32.9, Red Cell Distribution Width 13.5, Calcium Level 8.1 L 10/16/18 03:59 Red Blood Count 4.70, Mean Corpuscular Volume 92.1, Mean Corpuscular Hemoglobin 30.0, Mean Corpuscular Hemoglobin Concent 32.6, Red Cell Distribution Width 13.6 Microbiology Microbiology 10/10/18 Gastrointestinal Tract Panel (PCR) - Final, Complete 10/08/18 Urine Culture - Final, Complete MASTER GELLER MD Oct 16, 2018 04:36
[2018-10-16] MEDS ORDERED: MIRALAX *UNIT DOSE* 17GM PACKET PO PRN (09:00)
[2018-10-16] MEDS ORDERED: MIRALAX *UNIT DOSE* 17GM PACKET PO SCH (09:00)
[2018-10-16] MEDS: HEPARIN SOD (PORCINE) 5000 UNITS/ML VIAL SQ SCH ×2 (09:22→21:14)
[2018-10-16] MEDS: OMEGA-3 1000MG CAPSULE PO SCH ×2 (09:22→21:13)
[2018-10-16] MEDS: TAMSULOSIN 0.4 MG CAP PO SCH (09:22)
[2018-10-16] MEDS: METOPROLOL TARTRATE 100 MG TAB PO SCH ×2 (09:23→21:14)
[2018-10-16] MEDS: SENOKOT S TAB PO SCH (09:23)
[2018-10-16 16:00] VITALS: BP 130/84
[2018-10-16 20:00] VITALS: BP 118/77
[2018-10-16] MEDS: SIMVASTATIN 5 MG TAB PO SCH (21:13)
[2018-10-17] VITALS (11 sets, daily range): BP systolic 98–118; BP diastolic 54–80
[2018-10-17 05:10] LABS: HEMATOCRIT 44.6 % (42.0-52.0); HEMOGLOBIN 14.6 g/dl (13.5-17.5); MEAN CORPUSCULAR HEMOGLOBIN 29.7 pg (27.0-33.0); MEAN CORPUSCULAR HGB CONC 32.7 g/dl (32.0-36.5); MEAN CORPUSCULAR VOLUME 90.8 fl (80.0-96.0); PLATELET COUNT, AUTOMATED 319 10^3/uL (150-450); RED BLOOD COUNT 4.91 10^6/uL (4.30-6.10); WHITE BLOOD COUNT 10.1 10^3/uL (4.0-10.0)
[2018-10-17 05:33] LABS: CALCIUM LEVEL 7.9 MG/DL (8.8-10.2); CREATININE FOR GFR 1.29 MG/DL (0.70-1.30); GLOMERULAR FILTRATION RATE 57.8 (>42); POTASSIUM SERUM 4.8 MEQ/L (3.5-5.1)
[2018-10-17] MEDS ORDERED: MIDAZOLAM INJ 2 MG/2 ML VIAL (J2250) As Ordered ONE (07:56)
[2018-10-17] MEDS ORDERED: PROPOFOL 200 MG/20 ML VIAL As Ordered ONE (07:56)
[2018-10-17] MEDS ORDERED: ROCURONIUM BROMIDE 50 MG/5 ML VIAL As Ordered ONE ×3 (07:56→13:13)
[2018-10-17] MEDS ORDERED: fentaNYL 250 MCG/5 ML INJECTION (J3010) As Ordered ONE (07:56)
[2018-10-17] MEDS ORDERED: LIDOCAINE 2% INJ 100 MG/5 ML SDV (FOR ANES.) As Ordered ONE (07:56)
--- NOTE | 2018-10-17 08:20 | IPNPDOC ---
Date Seen The patient was seen on 10/17/18. Progress Note SUBJECTIVE:no c/o chest pain, pressure, tightness. Tele had transient <20 second of 140 hr while pt was getting into bed on 10/16/18, but subsided without intervention. no drop in BP and no sob.Overnight, pt was anxious about today's procedure. no other issues overnight. Per urology, "- plan OR on Monday for cystoscopy, cystolitholapaxy, and right ureteroscopy w/ laser lithotripsy, and possible right ureteral stent placement- should be able to start full dose anticoagulation once his bladder stone is removed- will f/u on elevated PSA w/ a repeat PSA approximately 4 wks after bladder stone removal- please make patient NPO at midnight evening" PHYSICAL EXAM: VITAL SIGNS: Please see below. GENERAL: Pleasant elderly man somewhat disheveled lying flat in bed in no acute distress awake alert oriented HEENT: Cranial nerves II through XII grossly intact CARDIOVASCULAR: S1-S2 1rregular at the time of my exam. RESPIRATORY: Clear to auscultation bilaterally. ABDOMINAL: Obese no suprapubic tenderness no CVA tenderness he has a Serna catheter in place with CBI running EXTREMITIES: No clubbing cyanosis or edema LABORATORY DATA, IMAGING STUDIES, MICROBIOLOGY: Reviewed. DVT prophylaxis ordered?: Sequentials teds ASSESSMENT AND PLAN: This is a 73-year-old man with Hypertension,hyperlipidemia, presents to the emergency room due to urinary urgency and frequency, dysuria that has been ongoing for the last 2 weeks and unable to void for 1 day. In the last 2 weeks, he says he has gone through two antibiotics for empiric treatment of urinary tract infection (UTI); one was Macrobid and his second one was ciprofloxacin. In the emergency room (ER), he had a urinalysis done, which showed it was positive for possible UTI. Of note, bladder scan did show that he was retaining approximately 150 mL of urine. Then, they straight catheterized (cathed) him for 600 mL. A renal ultrasound was done, which showed the possibility of a bladder mass and retained urine. Pateint was admitted for acute kidney injury secondary to obstructive uropathy. During hospitalization pateint was also noted to be in A fib for which he was asymptomatic. Atrial fibrillation with rapid ventricular response rate controlled this am on Diltiazem and metoprolol will hold off on starting anticoagulants right now in view of possible urologic procedure in the next 1-[address] Yunier tapia. Acute kidney injury: Secondary to obstructive uropathy that improved with placement of Serna catheter by urology. His urine culture is negative so antibiotic was discontinued. Enlarged prostate with mass like protrution in the bladder causing outlet obstruction. Persistently high PSA Concern for Prostate cancer vs BPH with primary bladder mass. Will need cystoscopy and biopsy will try to get it done in hospital prior to starting oral anticoagulant. Possibly on 10/17/18 continue flomax - plan OR on Monday for cystoscopy, cystolitholapaxy, and right ureteroscopy w/ laser lithotripsy, and possible right ureteral stent placement - should be able to start full dose anticoagulation once his bladder stone is removed - will f/u on elevated PSA w/ a repeat PSA approximately 4 wks after bladder stone removal - please make patient NPO at midnight Tu evening Bladder stone, right UVJ 14 mm stone and left intrarenal stone needs cystoscopy urology will schedule when OR available. IF procedure cannot be done in next 1-2 days then will schedule as outpatient by Dr Davis. - plan OR on Monday for cystoscopy, cystolitholapaxy, and right ureteroscopy w/ laser lithotripsy, and possible right ureteral stent placement - should be able to start full dose anticoagulation once his bladder stone is removed - will f/u on elevated PSA w/ a repeat PSA approximately 4 wks after bladder stone removal - please make patient NPO at midnight Tues evening Hypertension: controlled We will hold his lisinopril in the setting of recent acute kidney injury and titrate up his beta shawn. can resume lisinopril on discharge. Hyperlipidemia: Continue simvastatin DVT prophylaxis has been ordered. VS, I&O, 24H, Fishbone Vital Signs/I&O Vital Signs Date Time Temp Pulse Resp B/P (MAP) Pulse Ox O2 Delivery O2 Flow Rate FiO2 10/17/18 05:30 89 118/80 10/17/18 04:00 98.3 18 95 I&O- Last 24 Hours up to 6 AM 10/17/18 06:00 Intake Total 960 ml Output Total 1575 ml Balance -615 ml Laboratory Data 24H LABS Laboratory Tests 2 10/17/18 04:42: Nucleated Red Blood Cells % (auto) 0.0, Anion Gap 5L, Glomerular Filtration Rate 57.8, Blood Urea Nitrogen 13, Creatinine 1.29, Sodium Level 138, Potassium Level 4.8, Chloride Level 106, Carbon Dioxide Level 27, Calcium Level 7.9L CBC/BMP Laboratory Tests 10/17/18 04:42 Red Blood Count 4.91, Mean Corpuscular Volume 90.8, Mean Corpuscular Hemoglobin 29.7, Mean Corpuscular Hemoglobin Concent 32.7, Red Cell Distribution Width 13.7, Calcium Level 7.9 L Microbiology Microbiology 10/10/18 Gastrointestinal Tract Panel (PCR) - Final, Complete 10/08/18 Urine Culture - Final, Complete MASTER GELLER MD Oct 17, 2018 07:45
[2018-10-17] MEDS ORDERED: CONRAY-60 60% 50ML VIAL (Q9961) As Ordered ONE (08:35)
--- NOTE | 2018-10-17 08:46 | IPNPDOC ---
Assessment/Plan Date Seen The patient was seen on 10/17/18. Patient Summary This is a 73 y/o M admitted w/ LOS due to urinary retention and found to have a large bladder stone, an elevated PSA, and a right ureteral stone. He was also diagnosed w/ atrial fibrillation and is waiting to start anticoag for this. Prior to starting anticoagulation, I have recommended that we take him to the OR for cystoscopy, cystolitholapaxy, and right ureteroscopy w/ laser lithotripsy, and possible right ureteral stent placement prior to starting his anti coagulation. After a discussion of the risks and benefits of the procedure, informed consent was signed. Plan/VTE VTE Prophylaxis Ordered?: Yes VTE Exclusion Mechanical Proph: N/A:VTE Prophy Ordered VTE Exclusion Pharmacological: N/A:VTE Prophy Ordered Plan/Urinary Catheter Reason for insertion/continuin: Acute obstruct/retention Plan - informed consent signed for cystoscopy, cystolitholapaxy, and right ureteroscopy w/ laser lithotripsy, and possible right ureteral stent placement - ancef 2g preop - NPO - ok to start anticoagulation tomorrow Subjective Review oF Systems Chief Complaint The patient is a 73-year-old male admitted with a reason for visit of [place],Urinary Retention,Uti. Events since Last Encounter No acute events o/n. Denies pain. Objective Physical Examination General Exam: Alert, Cooperative Chest Exam: Normal air movement Heart Exam: Positive: Rate Normal Neuro Exam: Normal Speech Psych Exam: Mental status NL, Mood NL Other physical findings catheter draining clear urine Vital Signs/I&O Vital Signs Date Time Temp Pulse Resp B/P (MAP) Pulse Ox O2 Delivery O2 Flow Rate FiO2 10/17/18 05:30 89 118/80 10/17/18 04:00 98.3 18 95 I&O- Last 24 Hours up to 6 AM 10/17/18 06:00 Intake Total 960 ml Output Total 1575 ml Balance -615 ml Laboratory Data Labs 24H Laboratory Tests 2 10/17/18 04:42: Nucleated Red Blood Cells % (auto) 0.0, Anion Gap 5L, Glomerular Filtration Rate 57.8, Blood Urea Nitrogen 13, Creatinine 1.29, Sodium Level 138, Potassium Level 4.8, Chloride Level 106, Carbon Dioxide Level 27, Calcium Level 7.9L CBC/BMP Laboratory Tests 10/17/18 04:42 Red Blood Count 4.91, Mean Corpuscular Volume 90.8, Mean Corpuscular Hemoglobin 29.7, Mean Corpuscular Hemoglobin Concent 32.7, Red Cell Distribution Width 13.7, Calcium Level 7.9 L Microbiology Microbiology 10/10/18 Gastrointestinal Tract Panel (PCR) - Final, Complete 10/08/18 Urine Culture - Final, Complete ALISSON LEYVA MD Oct 17, 2018 08:46
[2018-10-17] MEDS ORDERED: ceFAZolin 2 GM/D5W 50 ML IV BAG (J0690 PER 500MG) As Ordered ONE (08:48)
[2018-10-17] MEDS: HEPARIN SOD (PORCINE) 5000 UNITS/ML VIAL SQ SCH ×2 (09:00→22:29)
[2018-10-17] MEDS: METOPROLOL TARTRATE 100 MG TAB PO SCH ×2 (09:00→21:00)
[2018-10-17] MEDS ORDERED: PHENYLephrine HCL 500 MCG/5 ML (100MCG/ML) SYRINGE (J2370) As Ordered ONE ×4 (09:08→14:00)
[2018-10-17] MEDS ORDERED: dexameTHASONE 4 MG/ML 1ML VIAL (J1100) As Ordered ONE (09:08)
[2018-10-17] MEDS ORDERED: PHENYLEPHRINE INJ 10MG/ML VIAL (J2370) As Ordered ONE (09:10)
[2018-10-17] MEDS ORDERED: VASOPRESSIN INJ 20 UNITS/ML VIAL As Ordered ONE (09:15)
[2018-10-17] MEDS ORDERED: ONDANSETRON 4MG/2ML VIAL (J2405) As Ordered ONE (09:50)
[2018-10-17] MEDS ORDERED: ePHEDrine SULFATE 25 MG/5 ML(5MG/ML) SYRINGE As Ordered ONE (12:51)
[2018-10-17] MEDS ORDERED: fentaNYL 100 MCG/2 ML INJECTION (J3010) As Ordered ONE (13:11)
[2018-10-17] MEDS ORDERED: ESMOLOL INJ 100MG/10ML VIAL As Ordered ONE (13:48)
[2018-10-17] MEDS ORDERED: SUGAMMADEX SODIUM 500 MG/5 ML VIAL (BRIDION) As Ordered ONE (14:09)
--- NOTE | 2018-10-17 14:59 | RO ---
DATE OF PROCEDURE: 10/17/2018 PREPROCEDURE DIAGNOSES: Bladder stone, right ureteral stone. POSTPROCEDURE DIAGNOSES: Bladder stone, right ureteral stone. PROCEDURE: Cystoscopy, cystolitholapaxy (greater than 5 cm). SURGEON: Adithya Davis MD GLASS TINTER: None. ANESTHESIA: General. OPERATIVE INDICATIONS: This is a 73-year-old male who was found to have an extremely large bladder stone as well as a distal right ureteral stone. He was brought to the operating room for treatment. DESCRIPTION OF PROCEDURE: The patient was brought to the operating room where general anesthesia was induced. Prophylactic antibiotics were infused. He was then placed in dorsal lithotomy position, prepped and draped in the usual sterile fashion. At this point, a nephroscope was inserted through the urethral meatus and advanced into the bladder. A large bladder stone was seen. At this point, I then utilized a CyberWand to fragment the stone and suctioned out the fragments. This took a very long time considering the size of the stone. Once done, there was a moderate amount of bleeding which made it very hard to see. At least 95% of the stone had been removed. Because of the amount of bleeding, I had a hard time identifying the right ureteral orifice and therefore I did not go after the right ureteral stone. At this point, I decided to stop the procedure. The nephroscope was removed and a [address] catheter was inserted into the bladder the balloon was filled with 30 mL of sterile water and the catheter was connected to gravity drainage and irrigation was started. The patient was then taken out of dorsal lithotomy position, awakened from anesthesia and transferred to the recovery room in stable condition. ESTIMATED BLOOD LOSS: 25 mL. COMPLICATIONS: None. SPECIMENS: Bladder stone fragments. PLAN: The patient will go back to the regular nursing floor where he will be discharged within the next day or two. He will also need to be brought back to the operating room for cystoscopy and a button transurethral electrovaporization of the prostate. At that time, I will also remove any remaining bladder stones as well as the ureteral stone if it is still present. DANIEL
[2018-10-17] MEDS ORDERED: PERCOCET 5MG/325MG TAB PO PRN (15:00)
[2018-10-17] MEDS ORDERED: fentaNYL 100 MCG/2 ML INJECTION (J3010) IV PRN (15:00)
[2018-10-17] MEDS ORDERED: MORPHINE 10 MG/ML 1ML VIAL (J2270) IV PRN (15:00)
[2018-10-17] MEDS ORDERED: LR 1,000 ML IV SCH (15:00)
[2018-10-17] MEDS ORDERED: ONDANSETRON 4MG/2ML VIAL (J2405) IV PRN (15:00)
[2018-10-17] MEDS ORDERED: METOPROLOL TARTRATE 100 MG TAB PO ONE (15:30)
[2018-10-17] MEDS: OMEGA-3 1000MG CAPSULE PO SCH ×2 (17:15→22:29)
[2018-10-17] MEDS: SENOKOT S TAB PO SCH (17:15)
[2018-10-17] MEDS: TAMSULOSIN 0.4 MG CAP PO SCH (17:15)
[2018-10-17] MEDS ORDERED: NS 250 ML IV ONE ×2 (19:20→22:30)
[2018-10-17] MEDS: SIMVASTATIN 5 MG TAB PO SCH (22:33)
[2018-10-18] VITALS (7 sets, daily range): BP systolic 95–132; BP diastolic 60–82
--- NOTE | 2018-10-18 05:54 | IPN ---
DATE: 10/17/2018 Mr. Kam Hale was seen this evening; he was supine in bed in no acute distress at rest. Earlier today, he was brought to the operating room (OR) and had cystoscopy done as well as cystolitholapaxy and most of his bladder stone was removed. Postprocedure, he was in atrial fibrillation with a rapid ventricular rate and was given extra dose of his metoprolol titrate and short-acting Cardizem. He also had received IV Cardizem. When I was at bedside, he was supine in bed in no acute distress at rest. He denies any chest pain. He was hypotensive with a blood pressure between 95 and 100 mmHg systolic. His heart rate now is about 80-90 beats per minute. On physical examination, patient is alert and oriented, in no acute distress at rest. Examination of the head: Atraumatic. Neck examination did not reveal any jugular venous distension (JVD). The lungs are clear bilaterally on auscultation. The heart examination revealed an irregular heart sound without gallops. The point of maximal impulse (PMI) is not displaced. There is rub. Abdomen is soft, and bowel sounds are active. Extremities revealed no pedal edema. Neurological examination is negative for focal deficit. LABS: CBC done today revealed a WBC of 10.1, hemoglobin 14.6, hematocrit 44.6, and platelets 319,000. BMP revealed a sodium of 138, potassium 4.8, chloride 106, CO2 of 27, BUN 13, creatinine 1.29, GFR 57.8, and fasting glucose 87 with a calcium of 7.9. IMPRESSION: 1. Atrial fibrillation, newly diagnosed during this hospitalization. 2. History of hypertension. 3. History of hyperlipidemia. 4. Coronary artery atherosclerosis. 5. Kidney stones, large. 6. Status post urinary tract infection (UTI). Mr. Kam Hale seems to be stable from a cardiac point of view with low blood pressure secondary to his AV blocking agents, the beta-shawn, and the calcium channel shawn. We will be giving him a 250 normal saline IV fluid challenge over 1 hour and will monitor his blood pressure. Will try to hold his AV blocking agents for this evening. If needed, will give him a second 250 mL normal saline IV fluid challenge. We can resume his Cardizem as well as his beta-shawn tomorrow, 10/18/2018. He probably will be discharged home tomorrow or on 10/19/2018, and he will be seen as an outpatient for followup on his cardiac condition. He was found to have coronary artery sclerosis, and he will need a stress test looking for obstructive coronary artery disease (CAD) on top of his coronary artery calcification. I will monitor him along with you as needed while in the hospital. Please do not hesitate to call if any questions.
[2018-10-18 06:10] LABS: HEMATOCRIT 39.5 % (42.0-52.0); MEAN CORPUSCULAR HEMOGLOBIN 30.4 pg (27.0-33.0); MEAN CORPUSCULAR HGB CONC 32.9 g/dl (32.0-36.5); MEAN CORPUSCULAR VOLUME 92.5 fl (80.0-96.0); PLATELET COUNT, AUTOMATED 248 10^3/uL (150-450); RED BLOOD COUNT 4.27 10^6/uL (4.30-6.10); WHITE BLOOD COUNT 16.3 10^3/uL (4.0-10.0)
[2018-10-18 06:28] LABS: BLOOD UREA NITROGEN 16 MG/DL (7-18); CALCIUM LEVEL 8.1 MG/DL (8.8-10.2); CARBON DIOXIDE LEVEL 28 MEQ/L (21-32); CHLORIDE LEVEL 105 MEQ/L (98-107); CREATININE FOR GFR 1.23 MG/DL (0.70-1.30); GLOMERULAR FILTRATION RATE > 60.0 (>42); GLUCOSE, FASTING 103 MG/DL (70-100); POTASSIUM SERUM 4.8 MEQ/L (3.5-5.1); SODIUM LEVEL 137 MEQ/L (136-145)
--- NOTE | 2018-10-18 08:33 | IPNPDOC ---
Assessment/Plan Date Seen The patient was seen on 10/18/18. Patient Summary This is a 73 y/o M admitted w/ LOS due to urinary retention and found to have a large bladder stone, an elevated PSA, and a right ureteral stone, POD1 s/p cystoscopy, cystolitholapaxy. Due to prostatic bleeding it was difficult to identify the right ureteral orifice so that ureteroscopy could be performed yesterday to try to retrieve the ureteral stone. With that said, I suspect the stone has passed as he had an approximately 1cm sized stone in his catheter bag prior to the surgery. His hematuria appears to be clearing up and therefore the CBI was stopped this morning. Plan/VTE VTE Prophylaxis Ordered?: Yes VTE Exclusion Mechanical Proph: N/A:VTE Prophy Ordered VTE Exclusion Pharmacological: N/A:VTE Prophy Ordered Plan/Urinary Catheter Reason for insertion/continuin: Acute obstruct/retention Plan - keep CBI off as long as urine is pink or clearer - would observe the patient the rest of today - if urine remains relatively clear through tomorrow, then therapeutic anticoagulation can be started (it is ok to give SQ heparin and/or baby ASA now) - will ultimately have patient f/u w/ me in 4 wks for catheter change and a repeat PSA to determine if he needs a prostate biopsy - any further surgery will depend on the repeat PSA and prostate biopsy result (if needed if his PSA does not come down) Subjective Review oF Systems Chief Complaint The patient is a 73-year-old male admitted with a reason for visit of [place],Urinary Retention,Uti. Events since Last Encounter No acute events o/n. He notes minimal discomfort from the catheter. Nursing di d not have to manually irrigate the catheter o/n. Objective Physical Examination General Exam: Alert, Cooperative Neuro Exam: Normal Speech Psych Exam: Mental status NL, Mood NL Other physical findings 3-way catheter in place w/ CBI on minimal drip and almost clear urine draining Vital Signs/I&O Vital Signs Date Time Temp Pulse Resp B/P (MAP) Pulse Ox O2 Delivery O2 Flow Rate FiO2 10/18/18 08:00 97.5 84 18 123/72 (89) 95 10/17/18 14:32 2 I&O- Last 24 Hours up to 6 AM 10/18/18 06:00 Intake Total 5010 ml Output Total 4775 ml Balance 235 ml Laboratory Data Labs 24H Laboratory Tests 2 10/17/18 14:16: 10/18/18 05:51: Nucleated Red Blood Cells % (auto) 0.0, Anion Gap 4L, Glomerular Filtration Rate > 60.0, Blood Urea Nitrogen 16, Creatinine 1.23, Sodium Level 137, Potassium Level 4.8, Chloride Level 105, Carbon Dioxide Level 28, Calcium Level 8.1L CBC/BMP Laboratory Tests 10/18/18 05:51 Red Blood Count 4.27 L, Mean Corpuscular Volume 92.5, Mean Corpuscular Hemoglobin 30.4, Mean Corpuscular Hemoglobin Concent 32.9, Red Cell Distribution Width 13.9, Calcium Level 8.1 L Microbiology Microbiology 10/10/18 Gastrointestinal Tract Panel (PCR) - Final, Complete 10/08/18 Urine Culture - Final, Complete ALISSON LEYVA MD Oct 18, 2018 08:33
[2018-10-18] MEDS: SENOKOT S TAB PO SCH (09:16)
[2018-10-18] MEDS: METOPROLOL TARTRATE 100 MG TAB PO SCH ×2 (09:16→20:41)
[2018-10-18] MEDS: TAMSULOSIN 0.4 MG CAP PO SCH (09:16)
[2018-10-18] MEDS: OMEGA-3 1000MG CAPSULE PO SCH ×2 (09:16→20:23)
[2018-10-18] MEDS: HEPARIN SOD (PORCINE) 5000 UNITS/ML VIAL SQ SCH ×2 (09:17→20:39)
[2018-10-18] MEDS ORDERED: FLOM0.4C39 PO (13:22)
[2018-10-18] MEDS ORDERED: LOPR1TAB7 PO (13:22)
[2018-10-18] MEDS ORDERED: CHIL81CH2 PO (13:22)
[2018-10-18] MEDS ORDERED: DILT30TA PO (13:25)
[2018-10-18] MEDS ORDERED: AUTOKIT7 XX (13:25)
[2018-10-18] MEDS ORDERED: ASPIRIN 81 MG CHEW TABLET PO ONE (13:30)
[2018-10-18] MEDS: SIMVASTATIN 5 MG TAB PO SCH (20:23)
[2018-10-18] MEDS: ACETAMINOPHEN TAB 650MG DOSE (2X325MG) PO PRN (20:25)
[2018-10-19 06:00] VITALS: BP 119/72
[2018-10-19 06:24] LABS: HEMATOCRIT 38.1 % (42.0-52.0); HEMOGLOBIN 12.6 g/dl (13.5-17.5); MEAN CORPUSCULAR HEMOGLOBIN 30.1 pg (27.0-33.0); MEAN CORPUSCULAR HGB CONC 33.1 g/dl (32.0-36.5); MEAN CORPUSCULAR VOLUME 90.9 fl (80.0-96.0); PLATELET COUNT, AUTOMATED 224 10^3/uL (150-450); RED BLOOD COUNT 4.19 10^6/uL (4.30-6.10); WHITE BLOOD COUNT 9.1 10^3/uL (4.0-10.0)
[2018-10-19 06:53] LABS: BLOOD UREA NITROGEN 13 MG/DL (7-18); CALCIUM LEVEL 7.9 MG/DL (8.8-10.2); CARBON DIOXIDE LEVEL 27 MEQ/L (21-32); CHLORIDE LEVEL 107 MEQ/L (98-107); CREATININE FOR GFR 1.16 MG/DL (0.70-1.30); GLOMERULAR FILTRATION RATE > 60.0 (>42); GLUCOSE, FASTING 89 MG/DL (70-100); SODIUM LEVEL 139 MEQ/L (136-145)
[2018-10-19 08:34] VITALS: BP 124/82
[2018-10-19] MEDS: METOPROLOL TARTRATE 100 MG TAB PO SCH (08:34)
[2018-10-19] MEDS: SENOKOT S TAB PO SCH (08:34)
[2018-10-19] MEDS: HEPARIN SOD (PORCINE) 5000 UNITS/ML VIAL SQ SCH (08:34)
[2018-10-19] MEDS: TAMSULOSIN 0.4 MG CAP PO SCH (08:34)
[2018-10-19] MEDS: OMEGA-3 1000MG CAPSULE PO SCH (08:36)
[2018-10-19] MEDS ORDERED: ASPIRIN 81 MG CHEW TABLET PO SCH (09:00)
--- NOTE | 2018-10-19 13:53 | DS.PDOC ---
Discharge Summary General Date of Admission Oct 10, 2018 at 14:30 Date of Discharge 10/19/18 Discharge Summary UROLOGY: DR LEYVA CARDIOLOGY: DR EBLL PROCEDURE: cystoscopy, cystolitholapaxy, and right ureteroscopy w/ laser lithotripsy, and possible right ureteral stent placement DISCHARGE DIAGNOSES: Atrial fibrillation with rapid ventricular response Acute kidney injury Enlarged prostate with mass like protrution in the bladder causing outlet obstruction. Bladder stone, right UVJ 14 mm stone and left intrarenal stone Hypertension Hyperlipidemia DISCHARGE MEDICATIONS: PLS SEE BELOW DISCHARGE INSTRUCTIONS: DUE TO RECENT UROLOGIC PROCEDURE, ASA FOR AFIB . PT TO FU W DR. BELL AND DR. LEYVA RE: FURTHER CHANGES IN ANTICOAGULATION. HISTORY OF PRESENTING ILLNESS: This is a 73-year-old man with Hypertension,hyperlipidemia, presents to the emergency room due to urinary urgency and frequency, dysuria that has been ongoing for the last 2 weeks and unable to void for 1 day. In the last 2 weeks, he says he has gone through two antibiotics for empiric treatment of urinary tract infection (UTI); one was Macrobid and his second one was ciprofloxacin. In the emergency room (ER), he had a urinalysis done, which showed it was positive for possible UTI. Of note, bladder scan did show that he was retaining approximately 150 mL of urine. Then, they straight catheterized (cathed) him for 600 mL. A renal ultrasound was done, which showed the possibility of a bladder mass and retained urine. Pateint was admitted for acute kidney injury secondary to obstructive uropathy. During hospitalization pateint was also noted to be in A fib for which he was asymptomatic. HOSPITAL COURSE: Atrial fibrillation with rapid ventricular response rate controlled this am on Diltiazem and metoprolol will hold off on starting anticoagulants right now in view of possible urologic procedure in the next 1-[address] Bell following. Acute kidney injury, resolved Secondary to obstructive uropathy that improved with placement of Serna catheter by urology. His urine culture is negative so antibiotic was discontinued. Enlarged prostate with mass like protrution in the bladder causing outlet obstruction. Persistently high PSA Concern for Prostate cancer vs BPH with primary bladder mass. s/p cystoscopy and biopsy will try to get it done in hospital prior to starting oral anticoagulant. Possibly on 10/17/18 continue flomax -s/p for cystoscopy, cystolitholapaxy, and right ureteroscopy w/ laser lithotripsy, and possible right ureteral stent placement - should be able to start full dose anticoagulation once his bladder stone is removed - will f/u on elevated PSA w/ a repeat PSA approximately 4 wks after bladder stone removal - please make patient NPO at midnight Tues evening Bladder stone, right UVJ 14 mm stone and left intrarenal stone needs cystoscopy urology will schedule when OR available. IF procedure cannot be done in next 1-2 days then will schedule as outpatient by Dr Leyva. - plan OR on Monday for cystoscopy, cystolitholapaxy, and right ureteroscopy w/ laser lithotripsy, and possible right ureteral stent placement - should be able to start full dose anticoagulation once his bladder stone is removed - will f/u on elevated PSA w/ a repeat PSA approximately 4 wks after bladder stone removal - please make patient NPO at midnight Tues evening Hypertension: controlled We will hold his lisinopril in the setting of recent acute kidney injury and titrate up his beta shawn. can resume lisinopril on discharge. Hyperlipidemia: Continue simvastatin DVT prophylaxis has been ordered. DISCHARGE PHYSICAL EXAMINATION: VITAL SIGNS: Please see below. GENERAL: Pleasant elderly man somewhat disheveled lying flat in bed in no acute distress awake alert oriented HEENT: Cranial nerves II through XII grossly intact CARDIOVASCULAR: S1-S2 1rregular at the time of my exam. RESPIRATORY: Clear to auscultation bilaterally. ABDOMINAL: Obese no suprapubic tenderness no CVA tenderness he has a Serna catheter in place with CBI running EXTREMITIES: No clubbing cyanosis or edema LABORATORY DATA, IMAGING STUDIES, MICROBIOLOGY: Reviewed. DVT prophylaxis ordered?: Sequentials teds TIME SPENT ON DISCHARGE: 30 MIN Vital Signs/I&Os Vital Signs Date Time Temp Pulse Resp B/P (MAP) Pulse Ox O2 Delivery O2 Flow Rate FiO2 10/19/18 08:34 97 124/82 10/19/18 06:00 98.3 20 93 10/17/18 14:32 2 I&O- Last 24 Hours up to 6 AM 10/19/18 06:00 Intake Total 2540 ml Output Total 6750 ml Balance -4210 ml Laboratory Data Labs 24H Laboratory Tests 2 10/19/18 06:00: Nucleated Red Blood Cells % (auto) 0.0, Anion Gap 5L, Glomerular Filtration Rate > 60.0, Blood Urea Nitrogen 13, Creatinine 1.16, Sodium Level 139, Potassium Level 4.0, Chloride Level 107, Carbon Dioxide Level 27, Calcium Level 7.9L CBC/BMP Laboratory Tests 10/19/18 06:00 Red Blood Count 4.19 L, Mean Corpuscular Volume 90.9, Mean Corpuscular Hemoglobin 30.1, Mean Corpuscular Hemoglobin Concent 33.1, Red Cell Distribution Width 14.2, Calcium Level 7.9 L Microbiology Microbiology 10/10/18 Gastrointestinal Tract Panel (PCR) - Final, Complete Discharge Medications Scheduled Aspirin (Childrens Aspirin) 81 Mg Chew, 81 MG PO DAILY Diltiazem HCl (Diltiazem HCl) 30 Mg Tab, 30 MG PO Q8H Metoprolol Tartrate (Lopressor) 100 Mg Tab, 100 MG PO BID [place] 3 Polyunsat Fatty Acids ([place]-3 1000 mg) 1 Cap Cap, 2 CAP PO BID, (Reported) Simvastatin (Simvastatin) 5 Mg Tab, 5 MG PO QHS, (Reported) Tamsulosin Hydrochloride (Flomax) 0.4 Mg Cap, 0.4 MG PO DAILY Allergies Coded Allergies: No Known Allergies (Unverified , 10/08/18) MASTER GELLER MD Oct 19, 2018 13:53
[2018-10-24 00:08] LABS: COMMENT Note: (.); Ca Ox Monohydrate 92 % (.)
== END 2018-10-19 11:42 | disposition home health service (06) | DRG 694 ==
LOC: M ED 14:26 → M ED INP 21:37 → M MSPAV 23:45 → M PCU 10-09 18:06 → OBSVTOIN 10-10 14:30 → M MSPAV 10-18 14:36
PROVIDERS: ADMIT Internal Medicine; ATTEND General Practice
PROC: 0TJB8ZZ Inspection of Bladder, Via Natural or Artificial Opening Endoscopic (ICD-10-PCS; 2018-10-09)
PROC: 0TCB8ZZ Extirpation of Matter from Bladder, Via Natural or Artificial Opening Endoscopic (ICD-10-PCS; principal; 2018-10-17 09:15)
DX: N20.1 Calculus of ureter (principal); N17.9 Acute kidney failure, unspecified; I48.91 Unspecified atrial fibrillation; N20.0 Calculus of kidney; I10 Essential (primary) hypertension; E78.5 Hyperlipidemia, unspecified; Z79.82 Long term (current) use of aspirin; Z79.899 Other long term (current) drug therapy; R31.9 Hematuria, unspecified; R33.9 Retention of urine, unspecified; N40.0 Benign prostatic hyperplasia without lower urinary tract symptoms

== ENCOUNTER → 2018-11-16 | Outpatient (REF) | payer OTHER ==
[~2018-11-16] MED LIST: ASPI-286 PO; AUTOKIT7 XX; CARV40CA PO; CIPR500T39 PO; DILT30TA PO; FLOM0.4C39 PO; LISI-672 PO; LOPR1TAB7 PO; OMEG10002 PO; OMEGA; SIMV5TAB12 PO
[2018-11-18 09:37] LABS: PSA % FREE 28.9 % (.); PSA FREE 2.2 ng/mL; PSA TOTAL 7.6 ng/mL (0.0-4.0)
== END ==
LOC: M LABDRWAD 12:10
PROVIDERS: ATTEND Urology
DX: R97.20 Elevated prostate specific antigen [PSA] (principal)

== ENCOUNTER → 2018-12-03 | Outpatient (REF) | payer OTHER, MEDICARE ==
[2018-12-03 13:48] LABS: APPEARANCE, URINE HAZY (CLEAR); BACTERIA, URINE AUTO NEGATIVE (NEGATIVE); BILIRUBIN, URINE AUTO NEGATIVE (NEGATIVE); BLOOD, URINE BLOOD 1+ (NEGATIVE); COLOR, URINE YELLOW (YELLOW); GLUCOSE, URINE (UA) AUTO NEGATIVE (NEGATIVE); KETONE, URINE AUTO NEGATIVE (NEGATIVE); LEUKOCYTE ESTERASE, URINE AUTO 3+ (NEGATIVE); MUCUS, URINE SMALL (NEGATIVE); NITRITE, URINE AUTO NEGATIVE (NEGATIVE); PROTEIN, URINE AUTO NEGATIVE (NEGATIVE); RBC, URINE AUTO 3 /HPF (0-3); SPECIFIC GRAVITY URINE AUTO 1.006 (1.002-1.035); SQUAMOUS EPITHELIAL CELL UR AU 0 /HPF (0-6); UROBILINOGEN, URINE AUTO 0.2 mg/dL (0.0-2.0); WBC, URINE AUTO 91 /HPF (0-3)
[2018-12-03 13:52] LABS: HEMATOCRIT 42.2 % (42.0-52.0); HEMOGLOBIN 13.8 g/dl (13.5-17.5); MEAN CORPUSCULAR HEMOGLOBIN 29.7 pg (27.0-33.0); MEAN CORPUSCULAR HGB CONC 32.7 g/dl (32.0-36.5); MEAN CORPUSCULAR VOLUME 90.9 fl (80.0-96.0); PLATELET COUNT, AUTOMATED 276 10^3/uL (150-450); RED BLOOD COUNT 4.64 10^6/uL (4.30-6.10); WHITE BLOOD COUNT 7.2 10^3/uL (4.0-10.0)
[2018-12-03 13:55] LABS: INR 0.96; PROTHROMBIN TIME 12.9 SECONDS (12.1-14.4)
[2018-12-03 13:56] LABS: PARTIAL THROMBOPLASTIN TIME 30.6 SECONDS (25.4-37.6)
[2018-12-03 14:13] LABS: BLOOD UREA NITROGEN 14 MG/DL (7-18); CALCIUM LEVEL 8.6 MG/DL (8.8-10.2); CARBON DIOXIDE LEVEL 23 MEQ/L (21-32); CHLORIDE LEVEL 105 MEQ/L (98-107); CREATININE FOR GFR 1.07 MG/DL (0.70-1.30); GLOMERULAR FILTRATION RATE > 60.0 (>42); GLUCOSE, FASTING 95 MG/DL (70-100); POTASSIUM SERUM 4.3 MEQ/L (3.5-5.1); SODIUM LEVEL 135 MEQ/L (136-145)
== END ==
LOC: M LABDRWAD 12:53
PROVIDERS: ATTEND Nurse Practitioner Family
DX: Z01.818 Encounter for other preprocedural examination (principal); N20.0 Calculus of kidney; R97.20 Elevated prostate specific antigen [PSA]

== ENCOUNTER → 2018-12-03 | Outpatient (CLI) | payer OTHER, MEDICARE ==
--- NOTE | 2018-12-03 10:35 | REP ---
CHEST X-RAY: Two views. HISTORY: Elevated PSA. Kidney stone. Comparison is made with chest CT results from October 14, 2018. FINDINGS: The lungs are well inflated and free of infiltrate. Pleural angles are sharp. Heart is not enlarged. Aorta is somewhat tortuous. Pulmonary vasculature is not increased. There are degenerative changes in the thoracic spine. No bony destructive lesion. IMPRESSION: No active disease. Electronically Signed by Garrick Gill MD 12/03/2018 11:39 A
== END ==
LOC: M ADAMS 10:04
PROVIDERS: ATTEND Urology
DX: Z01.818 Encounter for other preprocedural examination (principal); N20.0 Calculus of kidney; R97.20 Elevated prostate specific antigen [PSA]

== ENCOUNTER 2018-12-14 06:30 | Day surgery (SDC) | payer OTHER, MEDICARE ==
[~2018-12-14] VITALS: Ht 182.9 cm; Wt 116.6 kg
[~2018-12-14 06:30] MED LIST changes: +FISH1000 PO; +FLON1SPR; +LOVA1CAP17 PO; +NYST10CR TOP; +SIMV10TA2 PO
[2018-12-14] MEDS ORDERED: LR 1,000 ML IV ONE (07:00)
[2018-12-14] MEDS ORDERED: LIDOCAINE 2% INJ 100 MG/5 ML SDV (FOR ANES.) As Ordered ONE (07:12)
[2018-12-14] MEDS ORDERED: PROPOFOL 200 MG/20 ML VIAL As Ordered ONE (07:12)
[2018-12-14] MEDS ORDERED: fentaNYL 100 MCG/2 ML INJECTION (J3010) As Ordered ONE (07:13)
[2018-12-14] MEDS ORDERED: MIDAZOLAM INJ 2 MG/2 ML VIAL (J2250) As Ordered ONE (07:14)
[2018-12-14] MEDS ORDERED: ceFAZolin 2 GM/D5W 50 ML IV BAG (J0690 PER 500MG) As Ordered ONE (07:19)
[2018-12-14] MEDS ORDERED: CONRAY-60 60% 50ML VIAL (Q9961) As Ordered ONE (08:03)
[2018-12-14] MEDS ORDERED: ONDANSETRON 4MG/2ML VIAL (J2405) As Ordered ONE (08:16)
[2018-12-14] MEDS ORDERED: dexameTHASONE 4 MG/ML 1ML VIAL (J1100) As Ordered ONE (08:16)
[2018-12-14] MEDS ORDERED: PHENYLephrine HCL 500 MCG/5 ML (100MCG/ML) SYRINGE (J2370) As Ordered ONE (08:28)
[2018-12-14] MEDS ORDERED: ePHEDrine SULFATE 25 MG/5 ML(5MG/ML) SYRINGE As Ordered ONE (08:41)
--- NOTE | 2018-12-14 10:09 | REP ---
RETROGRADE PYELOGRAM: HISTORY: Kidney stone. Two radiographs were obtained with a C-ARM. A small amount of contrast material is present in the right renal collecting system. The patient is status-post right ureteral stent placement. Fluoroscopy time 15 seconds. IMPRESSION: Retrograde pyelogram as described above. Electronically Signed by Jamar Garcia MD 12/14/2018 10:12 A
[2018-12-14] MEDS ORDERED: LR 1,000 ML IV SCH (10:45)
[2018-12-14] MEDS ORDERED: PERCOCET 5MG/325MG TAB PO PRN (10:45)
[2018-12-14] MEDS ORDERED: ONDANSETRON 4MG/2ML VIAL (J2405) IV PRN (10:45)
[2018-12-14] MEDS ORDERED: fentaNYL 100 MCG/2 ML INJECTION (J3010) IV PRN (10:45)
[2018-12-14] MEDS ORDERED: NORCO, ANEXSIA 5/325MG TABLET (HYDROcodone/ACETAMINOPHEN) PO PRN (10:45)
--- NOTE | 2018-12-14 11:00 | ROOPDOC ---
[facility] Report Of Operation Report of Operation DATE OF PROCEDURE: 12/14/18 PREPROCEDURE DIAGNOSES: Right Ureteral Stone, Elevated Prostate Specific Antigen. POSTPROCEDURE DIAGNOSES: Right Ureteral Stone, Elevated Prostate Specific Antigen, Bladder Stones. PROCEDURE: Cystoscopy, Laser Cystolitholapaxy, Right Ureteroscopy with Laser Lithotripsy and Basket Extraction of Stones, Right Retrograde Pyelogram with Intraoperative Interpretation of Images, Right Ureteral Stent Placement, Transrectal Ultrasound-guided Prostate Biopsy. SURGEON: Alisson Leyva MD SOCIAL MEDIA CONTENT MANAGER: None ANESTHESIA: General. OPERATIVE INDICATIONS: This is a 73 year old male who was brought to the operating room a few weeks ago for treatment of a bladder stone and a right ureteral stone. Due to bleeding at the end of the procedure the ureteral stone was not addressed. He also has an elevated prostate specific antigen. He was brought to the operating room today for the above procedure. DESCRIPTION OF PROCEDURE: The patient was brought to the operating room and general anesthesia was induced. Prophylactic antibiotics were infused. He was placed in the dorsal lithotomy position and prepped and draped in the usual sterile fashion. A rigid cystoscope was inserted in the bladder and approximately 10 bladder stones remained. These were fragmented with a 500 micron laser fiber and all of the fragments were removed. Next a guidewire was advanced up the right collecting system. I then went up with a short semirigid ureteroscope and in the distal ureter an 8mm stone was seen. This was fragmented using a 200 micron laser fiber and all of the fragments were removed with a basket. A retrograde pyelogram was performed and was notable for moderate right hydroureteroneprhosis with no extravasation. Next a 6Fr x 22- 32cm JJ ureteral stent was advanced over the wire into the right collecting sys tem. The wire was removed and there were adequate curls of the stent in the right renal pelvis and the bladder. The bladder was then emptied and the patient was repositioned for a prostate biopsy. The patient was placed in the left lateral position. A transrectal ultrasound probe was placed into the rectum. Subsequently the ultrasonologist measured the dimensions of the prostate. Then 12 core biopsies of the prostate were obtained using a disposable biopsy gun, 6 each from the right and 6 from the left, 2 from the base, 2 from the mid zone and 2 from the apex. There were no complications. A new 18 Fr gray catheter was then placed in the bladder under sterile conditions. The patient was then awakened from anesthesia and transported to the recovery room in stable condition. ESTIMATED BLOOD LOSS: Approximately 15 mL. COMPLICATIONS: None. SPECIMENS: Bladder Stones, Right Ureteral Stone Fragments, Prostate Biopsies. PLAN: The patient will follow up in clinic in 1 week for pathology results. If his pathology is negative for cancer, I will recommend a button transurethral electrovaporization of the prostate for his urinary retention. ALISSON LEYVA MD December 14, 2018 11:00
--- NOTE | 2018-12-14 11:12 | REP ---
TRANSRECTAL PROSTATE ULTRASOUND WITH ULTRASOUND GUIDANCE FOR PROSTATE BIOPSY: Transrectal ultrasound prostate performed. The prostate is significantly enlarged measuring 7.8 x 5.1 x 8.3 cm. Total volume is 173 mL. No peripheral zone mass is seen. There is a nodular heterogeneous echotexture. Ultrasound guidance was provided for Dr. Davis who performed ultrasound guided biopsy of the prostate. Electronically Signed by Obey Ramirez MD 12/14/2018 01:32 P
[2018-12-14 12:15] VITALS: BP 142/77
[2018-12-15] MEDS ORDERED: ASPI81CH33 PO (20:55)
[2018-12-15] MEDS ORDERED: DILT30TA PO (20:55)
[2018-12-15] MEDS ORDERED: FLOM0.4C39 PO (20:59)
[2018-12-15] MEDS ORDERED: METO100T5 PO (20:59)
[2018-12-15] MEDS ORDERED: ACET1TAB55 PO (21:00)
[2018-12-15] MEDS ORDERED: CIPR-250 PO (23:41)
--- NOTE | 2018-12-16 09:37 | CR ---
DATE OF CONSULTATION: 12/15/2018 REASON FOR CONSULTATION: Gross hematuria. HISTORY OF PRESENT ILLNESS: The patient is a 73-year-old gentleman who is postop day #1 cystoscopy with right ureteroscopy, laser lithotripsy, stent placement, prostate biopsies and litholapaxy by Dr. Adithya Davis. The patient has been in urinary retention with recurrent infections since September this year, found to have bladder stones, 14 mm right ureteral vesicle junction stone and an elevated PSA with an enlarged prostate. He was sent home with a catheter last night and they have seen some blood clots in it, although it has never not drained. He comes in now and I am able to hand irrigate his catheter where there is no further blood clots and it is a day color, which is expected after all the work that has been done. PAST MEDICAL HISTORY: Urinary resect retention since September with recurrent urinary tract infections, including pyelonephritis, acute kidney injury, high blood pressure, atrial fibrillation and hyperlipidemia. PAST SURGICAL HISTORY: Tonsillectomy, hemorrhoidectomy, cystoscopy, left ureteroscopy, litholapaxy and prostate biopsy 12/14/2018. MEDICATIONS: - acetaminophen - aspirin - diltiazem - fish oil - fluconazole - metoprolol - nystatin - simvastatin - tamsulosin ALLERGIES: No known drug allergies. SOCIAL HISTORY: He is . He does not smoke cigarettes or drink alcohol appreciably. FAMILY HISTORY: His mother has Alzheimer's disease. REVIEW OF SYSTEMS: Fairly negative. He is feeling well without significant abdominal pain. PHYSICAL EXAMINATION: His temperature is 98.1, pulse 109, respiratory rate 22. He is alert and oriented times three. His head is normocephalic, atraumatic. His eyes are pupils equal and reactive to light and accommodation. His neck is supple and he has no significant supraclavicular or cervical adenopathy. His heart has an irregular rhythm and he has been diagnosed recently with atrial fibrillation. His lungs are clear to auscultation and percussion. He has no costovertebral angle tenderness. His abdomen is soft and nontender. His Serna catheter has light day colored urine but without any evidence of clots. His extremities show no cyanosis, clubbing or edema. LABORATORY DATA: His white blood count is 7.2. His hemoglobin and hematocrit are 13.8 over 42.2. His platelets are 276. His BUN is 14 and his creatinine is 1.07. His PSA was elevated at 33.6. A urinalysis does show 91 white blood cells but this was on 12/03/2018 and a urine culture at that time did show Serratia greater than 100,000. CT scan of the abdomen and pelvis from 10/14/2018 showed a 14 mm right ureteral vesicle junction stone, some nonobstructing left stone measuring 5 mm and also a 5 mm bladder stone. IMPRESSION 1. Gross hematuria status post cystoscopy with cystolitholapaxy for bladder stones, right ureteroscopy with laser lithotripsy for a 14 mm right ureteral vesicle junction stone with ureteral stent placement and prostate biopsies for an elevated PSA of 33.6. 2. Acute renal insufficiency now with a creatinine of 1.07. 3. Recurrent urinary tract infections and in urinary retention since September of this year. PLAN: 1. Discharge the patient home with the Serna catheter in place and recommend that he stop taking his aspirin until the bleeding subsides. 2. Continue no heavy lifting also until the bleeding stops. 3. The patient should return if there are blood clots that clot the catheter but we can also teach him how to and hand irrigate as needed but at this point I do not believe that continuous bladder irrigation is necessary. 4. Follow up with our office next week since we are also waiting his biopsy results. 5. Send urine for microscopic urinalysis, culture and sensitivity. He was sent home on antibiotics today with Bactrim DS 1 tablet by mouth daily for the next 10 days.
[2018-12-20 10:14] LABS: COMMENT Note: (.); Ca Ox Monohydrate 93 % (.)
== END 2018-12-14 12:39 | disposition home or self-care (01) ==
LOC: M SDC 06:30
PROVIDERS: ATTEND Urology
DX: N20.1 Calculus of ureter (principal); R97.20 Elevated prostate specific antigen [PSA]; N21.0 Calculus in bladder; I48.91 Unspecified atrial fibrillation; I10 Essential (primary) hypertension; E78.5 Hyperlipidemia, unspecified; N40.0 Benign prostatic hyperplasia without lower urinary tract symptoms; Z79.899 Other long term (current) drug therapy
CPT/HCPCS: 52317; 52356; 55700; 74420; 76872; 76998; 82360; 88300; C1769; C2617; G0416; J0690; J1100; J2250; J2370; J2405; J3010; Q9961

== ENCOUNTER 2018-12-15 19:22 | Observation (INO) | payer MEDICARE, OTHER ==
[~2018-12-15] VITALS: Ht 185.4 cm; Wt 117.9 kg
[2018-12-15] MEDS ORDERED: DILT30TA PO (20:55)
[2018-12-15] MEDS ORDERED: ASPI81CH33 PO (20:55)
[2018-12-15] MEDS ORDERED: FLOM0.4C39 PO (20:59)
[2018-12-15] MEDS ORDERED: METO100T5 PO (20:59)
[2018-12-15] MEDS ORDERED: ACET1TAB55 PO (21:00)
[2018-12-15] MEDS ORDERED: NS 1,000 ML IV ONE (22:00)
[2018-12-15 22:07] LABS: HEMATOCRIT 41.1 % (42.0-52.0); HEMOGLOBIN 13.9 g/dl (13.5-17.5); MEAN CORPUSCULAR HEMOGLOBIN 30.3 pg (27.0-33.0); MEAN CORPUSCULAR HGB CONC 33.8 g/dl (32.0-36.5); MEAN CORPUSCULAR VOLUME 89.5 fl (80.0-96.0); PLATELET COUNT, AUTOMATED 282 10^3/uL (150-450); RED BLOOD COUNT 4.59 10^6/uL (4.30-6.10); WHITE BLOOD COUNT 20.5 10^3/uL (4.0-10.0)
[2018-12-15 22:27] LABS: CALCIUM LEVEL 8.8 MG/DL (8.8-10.2); CREATININE FOR GFR 1.87 MG/DL (0.70-1.30); GLOMERULAR FILTRATION RATE 37.7 (>42)
[2018-12-15] MEDS ORDERED: CIPROFLOXACIN 250 MG TAB PO ONE (23:15)
[2018-12-15 23:22] LABS: BILIRUBIN, URINE MANUAL NEGATIVE (NEGATIVE); GLUCOSE, URINE (UA) MANUAL NEGATIVE (NEGATIVE); KETONE, URINE MANUAL NEGATIVE (NEGATIVE); UROBILINOGEN, URINE MANUAL NORMAL (NORMAL)
[2018-12-15 23:35] LABS: RBC, URINE TNTC /hpf (0-3)
[2018-12-15 23:36] LABS: SQUAMOUS EPITHELIAL CELL URINE NONE SEEN /hpf (SMALL AMT)
[2018-12-15 23:38] LABS: BACTERIA, URINE SMALL AMOUNT; HYALINE CAST, URINE NONE SEEN /lpf (0-1); MUCUS, URINE SMALL AMOUNT (NEGATIVE)
[2018-12-15] MEDS ORDERED: CIPR-250 PO (23:41)
[2018-12-16] MEDS ORDERED: PERCOCET 5MG/325MG TAB PO ONE (01:45)
[2018-12-16] MEDS: NS 1,000 ML IV SCH ×4 (02:15→22:45)
--- NOTE | 2018-12-16 02:17 | HPEPDOC ---
General Date of Admission December 16, 2018 at 01:15 Chief Complaint The patient is a 73-year-old male admitted with a reason for visit of Hematuria. Source: Patient Exam Limitations: Other (poor historian) Timing/Duration: Day(s) (2) History of Present Illness Pt is a pleasant 73 yo male with hx of bladder stone, a. fib, hyperlipemia, and HTN presents to [facility] with 2 days of gross hematuria, bilateral groin pain, and suprapubic tenderness. He denies any fever, chills, flank pain, nausea, and vomiting. Reported hematuria cleared up the 12/14 night, but hematuria appeared again 12/15 morning . Reported that there is also blood clots in the urinary catheter. No flank pain but reports bilateral flank pressure. It was noted that patient was found to have large bladder stone with right ureter stone during prior hospital admission in October 2018. Two days ago pt received urology procedure including cystoscopy, laser cystolitholapaxy, right ureteroscopy with laser lithotripsy and basket extraction of stones, right retrograde pyelogram with intraoperative interpretation of images, right ureteral Stent Placement, and transrectal ultrasound-guided prostate biopsy on prior visit. Biopsies including bladder Stones, right ureteral stone fragments, and prostate biopsies was taken during the procedure from 2 days ago with pending path results .Patient denies any chest pain, dyspnea, or palpitations, diarrhea, constipation, melena, or hematochezia. Home Medications Scheduled Aspirin (Aspirin) 81 Mg Tab.chew, 81 MG PO DAILY, (Reported) Ciprofloxacin HCl (Cipro) 250 Mg Tablet, 250 MG PO Q48H Diltiazem HCl (Diltiazem HCl) 30 Mg Tablet, 30 MG PO Q8H, (Reported) Metoprolol Tartrate (Metoprolol Tartrate) 100 Mg Tablet, 100 MG PO BID, (Reported) [place]-3/Dha/Epa/Fish Oil (Fish Oil 1,000 mg Softgel) 1 Cap Cap, 2 CAP PO BID, (Reported) Simvastatin (Simvastatin) 10 Mg Tablet, 5 MG PO QHS, (Reported) Tamsulosin HCl (Flomax) 0.4 Mg Capsule, 0.4 MG PO DAILY, (Reported) Scheduled PRN Acetaminophen (Acetaminophen) 325 Mg Tablet, 325 MG PO Q4-6H PRN for PAIN, (Reported) Fluticasone Propionate (Flonase Allergy Relief) 9.9 Ml [place].susp, 2 SPRAYS NA DAILY PRN for CONGESTION, (Reported) Nystatin (Nystatin) 15 Gm Cream..g., 1 DOSE TOP PRN PRN for RASH, (Reported) USES IN GROIN AREA WELL OTHER AREAS Allergies Coded Allergies: No Known Allergies (Unverified , 12/14/18) Past Medical History Medical History Essential HTN Hyperlipidemia A. fib with RVR Bladder stone, right UVJ stone, and left ureter stone Enlarged prostate with mass like protrusion in bladder causing outlet obstruction; elevated PSA CADY Urinary retention Surgical History reported unilateral inguinal hernia repair at 1 years old; pt unsure which side tonsillectomy and hernia repair as a child Urinary stent placement, lithotripsy 09/2018 Family History Significant Family History: Other (father has kidney stone.) Father on kidney dialysis; pt unsure why father was on kidney dialys is Mother medical hx listed as heart disease and COPD; pt denies Social History * Smoker: non-smoker, other (never smoker) Alcohol: Denies Drugs: denies Pt lives with A-FIB/CHADSVASC A-FIB History Current/History of A-Fib/PAF?: Yes Current Oral Anticoagulant The: No Review of Systems Constitutional: Denies: Chills, Fever Pulmonary: Denies: Dyspnea, Cough Cardiovascular: Denies: Chest Pain, Palpitations Gastrointestinal: Reports: Constipation (1 bowel movement every 4 days; denies hard stool); Denies: Nausea, Vomiting, Abdominal Pain, Diarrhea, Melena, Hematochezia Genitourinary: Reports: Hematuria, Other Symptoms (unable to obtain dysuria, urgency, or frequency as pt has urinary catheter) Physical Examination General Exam: Positive: Alert, Cooperative, No Acute Distress Eye Exam: Positive: Conjunctiva & lids normal ENT Exam: Positive: Atraumatic, Mucous membr. moist/pink Neck Exam: Positive: Supple Chest Exam: Positive: Clear to auscultation, Normal air movement; Negative: Rales, Rhonchi, Wheezing, Diminished Heart Exam: Positive: Tachycardic, Regular Rhythm, Normal S1, Normal S2; Negative: Murmurs Abdomen Exam: Positive: BS Hypoactive, Soft; Negative: Tenderness Extremity Exam: Positive: Normal pulses Skin Exam: Positive: Nl turgor and temperature Neuro Exam: Positive: Normal Tone Psych Exam: Positive: Mood NL, Memory Intact Other physical findings Suprapubic tenderness. No CVA tenderness b/l. Vital Signs Vital Signs Date Time Temp Pulse Resp B/P (MAP) Pulse Ox O2 Delivery O2 Flow Rate FiO2 12/16/18 01:42 18 12/16/18 00:39 98.5 100 142/92 (109) 94 Room Air Laboratory Data Labs 24H Laboratory Tests 2 12/15/18 22:01: Nucleated Red Blood Cells % (auto) 0.0, Anion Gap 10, Glomerular Filtration Rate 37.7L, Blood Urea Nitrogen 25H, Creatinine 1.87H, Sodium Level 129L, Potassium Level 5.0, Chloride Level 97L, Carbon Dioxide Level 22, Calcium Level 8.8 12/15/18 23:13: Urine Color (PAOLA) REDH, Urine Appearance (PAOLA) TURBIDH, Urine pH (PAOLA) 6.0, Urine Specific [place] (PAOLA) 1.010, Urine Protein OBSCUREDH, Bedside Urine Glucose (UA) NEGATIVE, Bedside Urine Ketones (LAB) NEGATIVE, Bedside Urine Blood POSITIVEH, Bedside Urine Nitrite (LAB) OBSCUREDH, Bedside Urine Bilirubin (LAB) NEGATIVE, Bedside Urine Urobilinogen (LAB) NORMAL, Bedside Urine Leukocyte Esterase (L POSITIVEH, Urine Sediment Examination PERFORMED, Urine RBC TNTCH, Urine WBC 3-5H, Urine Squamous Epithelial Cells NONE SEEN, Urine Bacteria SMALL AMOUNTH, Urine Hyaline Casts NONE SEEN, Urine Mucus SMALL AMOUNTH CBC/BMP Laboratory Tests 12/15/18 22:01 Red Blood Count 4.59, Mean Corpuscular Volume 89.5, Mean Corpuscular Hemoglobin 30.3, Mean Corpuscular Hemoglobin Concent 33.8, Red Cell Distribution Width 14.1, Calcium Level 8.8 Microbiology Microbiology 12/15/18 Urine Culture, Received Pending Problems (1) Gross hematuria Status: Acute Problem Text: Gross hematuria for 2 days with blood clots; UTI shown on UA. Bilateral inguinal pain with bilateral flank pressure. No weight loss compared to weight during hospital visit in October 2018. Recent urology procedure 2 day ago with retained urinary catheter. Urology consult ordered. Avoid anticoagul ants at this time. (2) UTI (urinary tract infection) Status: Acute Problem Text: leukocytosis without fever or chills. UA indicates UTI with leukocyte esterase and nitrite. Urine cx pending. Pt also has urinary catheter upon admission thus unable to assess dysuria/urgency/frequency; convert outpt cipro PO to IV for now. Cont vital signs as scheduled and cont to monitor the pt. (3) CADY (acute kidney injury) Status: Acute Problem Text: Creatinine at 1.87 elevated compared to baseline with GFR at 37.7; baseline GFR>90. History of 14 mm possibly partially obstructing right UVJ stone, 2 mm nonobstructing left renal calculus, and 5 cm bladder stone s/p lithotripsy and recent urology procedure. Continue IV NS and f/u with BMP tmrw (4) HTN (hypertension) Status: Chronic Response to Treatment: Stable Problem Text: PMH of HTN. Most recent BP 142/92. Cont vital signs as scheduled. Cont home med Diltiazem and Metoprolol. Vital signs as scheduled (5) Atrial fibrillation Status: Chronic Response to Treatment: Stable Problem Text: PMH of a. fib currently in sinus rhythm at the time of the examination. Denies chest pain, palpitation, or SOB. Mild tachy with HR at 100. Cont home med Diltiazem and Metoprolol. Pt will be on remote tele monitoring. Plan / VTE VTE Prophylaxis Ordered?: Yes (TEDS and SCD) Plan IVF: Initiate Diagnostics: Repeat Labs in AM, Obtain Cultures GOPAL SMALL DO December 16, 2018 02:17
[2018-12-16] MEDS ORDERED: ACETAMINOPHEN 325 MG TAB PO PRN (02:30)
[2018-12-16] MEDS ORDERED: NYSTATIN CREAM 15 GM TOP PRN (02:30)
[2018-12-16] MEDS ORDERED: FLUTICASONE PROP 0.05% NASAL SPRAY 16 GM (FLONASE) PRN (02:30)
[2018-12-16] MEDS ORDERED: PILL CRUSHER/CUTTER 1 EACH XX PRN (03:00)
[2018-12-16 04:00] VITALS: BP 155/89
[2018-12-16] MEDS ORDERED: MOM 30ML SUSPENSION UDC PO PRN (04:30)
[2018-12-16] MEDS ORDERED: SIMETHICONE 80 MG CHEW TAB PO ONE (04:30)
[2018-12-16] MEDS: CIPROFLOXACIN 400 MG in APPROPRIATE DILUENT 1 EA IV SCH ×2 (05:55→17:42)
[2018-12-16 06:01] VITALS: BP 100/70
[2018-12-16 08:00] VITALS: BP 100/68
[2018-12-16] MEDS: TAMSULOSIN 0.4 MG CAP PO SCH (08:11)
[2018-12-16] MEDS: METOPROLOL TARTRATE 100 MG TAB PO SCH ×3 (08:32→20:42)
[2018-12-16] MEDS: METAMUCIL (PSYLLIUM) PACKET PO SCH (08:33)
--- NOTE | 2018-12-16 09:54 | IPNPDOC ---
Text Note Date of Service The patient was seen on 12/16/18. NOTE Patient's catheter did have some difficulty draining overnight so we did end up proceeding with placement of a 20 [place] three-way Serna catheter and this was hand irrigated and continuous bladder irrigation was started. His urine is completely clear now. He denies any other complaints. His laboratory data came back in the ER last night though with an elevated white blood count of 20 and we are still awaiting a final urine culture. His creatinine was also elevated at 1.87 so he is on a renal dose of Cipro. Physical examination: He is afebrile at 98, pulse is 84, blood pressure is 100/68 and his respiratory rate is 19. Urine is crystal clear off the CBI now or with very little running. He has no CVA tenderness and his abdomen is soft and nontender. His extremities show no cyanosis clubbing or edema. Impression: -Postoperative hematuria expected after a cystoscopy with litholapaxy, left ureteroscopy and laser stone manipulation with stent placed, prostate biopsy for an elevated PSA, and an enlarged prostate with urinary retention and recurrent infections since September of this year -Acute renal insufficiency Plan: -Continue antibiotics and await CBC from today and BMP to check his creatinine levels -Discontinue CBI as long as he urine remains clear and if this remains clear and he is medically stable then he can be discharged to home with follow-up in our office this week A-FIB/CHADSVASC A-FIB History Current/History of A-Fib/PAF?: No Current Oral Anticoagulant The: No VS,Fishbone, I+O VS, Fishbone, I+O Laboratory Tests 12/15/18 22:01 Red Blood Count 4.59, Mean Corpuscular Volume 89.5, Mean Corpuscular Hemoglobin 30.3, Mean Corpuscular Hemoglobin Concent 33.8, Red Cell Distribution Width 14.1, Calcium Level 8.8 Vital Signs Date Time Temp Pulse Resp B/P (MAP) Pulse Ox O2 Delivery O2 Flow Rate FiO2 12/16/18 08:32 84 100/68 12/16/18 08:00 98.0 19 94 12/16/18 00:39 Room Air I&O- Last 24 Hours up to 6 AM 12/16/18 06:00 Intake Total 1000 ml Output Total 150 ml Balance 850 ml TABATHA CALABRESE MD December 16, 2018 09:54
[2018-12-16 10:13] LABS: HEMATOCRIT 37.1 % (42.0-52.0); HEMOGLOBIN 12.2 g/dl (13.5-17.5); MEAN CORPUSCULAR HGB CONC 32.9 g/dl (32.0-36.5); MEAN CORPUSCULAR VOLUME 91.2 fl (80.0-96.0); PLATELET COUNT, AUTOMATED 207 10^3/uL (150-450); RED BLOOD COUNT 4.07 10^6/uL (4.30-6.10); WHITE BLOOD COUNT 12.2 10^3/uL (4.0-10.0)
[2018-12-16 10:26] LABS: CREATININE FOR GFR 1.98 MG/DL (0.70-1.30); GLOMERULAR FILTRATION RATE 35.3 (>42); POTASSIUM SERUM 4.9 MEQ/L (3.5-5.1)
[2018-12-16 12:00] VITALS: BP 107/64
--- NOTE | 2018-12-16 14:43 | IPNPDOC ---
Date Seen The patient was seen on 12/16/18. Progress Note SUBJECTIVE: Patient reports improvment in his groin pain, denies fevers chills CP, or SOB. OBJECTIVE PHYSICAL EXAMINATION: VITAL SIGNS: Please see below. GENERAL: elderly obese man, laying in bed AAOx3 nad HEENT: CN 2-12 grossly in tact, no elevation in CVP CARDIOVASCULAR: s1 s2 regulat no tachy. RESPIRATORY: CTA b/l. ABDOMINAL: BS+, soft, no suprapubic or CVA tenderness EXTREMITIES: no c/c/e LABORATORY DATA, IMAGING STUDIES, MICROBIOLOGY: Please see below. DVT prophylaxis ordered?: We'll start sequentials and teds ASSESSMENT AND PLAN: This is a 73-year-old man with postprocedural urinary retention secondary to blood clots. PROBLEMS: 1. Postprocedural urinary retention secondary to blood clots: Urology also greatly appreciated he did improve with continuous bladder irrigation which has now since we discontinued his urine has only a pink tinge to it he has had recent manipulation will continue to monitor him closely does appear to be improving his pain is improving. His renal function is yet to improve we'll continue to provide him with IV fluid hydration and monitor his renal function tomorrow. Antibiotics as per urology bladder irrigation as per urology, he'll require one week follow-up with urology clinic. 2. Hypertension: Controlled continue with metoprolol as well as diltiazem. 3. Dyslipidemia: Continue statin therapy. 4. Constipation: Continue with Metamucil 5. BPH: Continue with Flomax 6. Acute kidney injury: Likely secondary to obstructive uropathy continue to monitor that this obstruction is been alleviated 7. Atrial fibrillation: He is rate controlled with metoprolol he is not anticoagulated secondary to active bleeding and rediscuss initiation of anticoagulation -Danish some bleeding of resolved DISPOSITION: Pending improvement in his renal function. VS, I&O, 24H, Fishbone Vital Signs/I&O Vital Signs Date Time Temp Pulse Resp B/P (MAP) Pulse Ox O2 Delivery O2 Flow Rate FiO2 12/16/18 12:50 126 107/64 12/16/18 12:00 99.3 20 95 12/16/18 00:39 Room Air I&O- Last 24 Hours up to 6 AM 12/16/18 06:00 Intake Total 1000 ml Output Total 150 ml Balance 850 ml Laboratory Data 24H LABS Laboratory Tests 2 12/15/18 22:01: Nucleated Red Blood Cells % (auto) 0.0, Anion Gap 10, Glomerular Filtration Rate 37.7L, Blood Urea Nitrogen 25H, Creatinine 1.87H, Sodium Level 129L, Potassium Level 5.0, Chloride Level 97L, Carbon Dioxide Level 22, Calcium Level 8.8 12/15/18 23:13: Urine Color (PAOLA) REDH, Urine Appearance (PAOLA) TURBIDH, Urine pH (PAOLA) 6.0, Ur ine Specific [place] (PAOLA) 1.010, Urine Protein OBSCUREDH, Bedside Urine Glucose (UA) NEGATIVE, Bedside Urine Ketones (LAB) NEGATIVE, Bedside Urine Blood POSITIVEH, Bedside Urine Nitrite (LAB) OBSCUREDH, Bedside Urine Bilirubin (LAB) NEGATIVE, Bedside Urine Urobilinogen (LAB) NORMAL, Bedside Urine Leukocyte Esterase (L POSITIVEH, Urine Sediment Examination PERFORMED, Urine RBC TNTCH, Urine WBC 3-5H, Urine Squamous Epithelial Cells NONE SEEN, Urine Bacteria SMALL AMOUNTH, Urine Hyaline Casts NONE SEEN, Urine Mucus SMALL AMOUNTH 12/16/18 09:45: Nucleated Red Blood Cells % (auto) 0.0, Anion Gap 7L, Glomerular Filtration Rate 35.3L, Blood Urea Nitrogen 29H, Creatinine 1.98H, Sodium Level 133L, Potassium Level 4.9, Chloride Level 103, Carbon Dioxide Level 23, Calcium Level 8.0L CBC/BMP Laboratory Tests 12/15/18 22:01 Red Blood Count 4.59, Mean Corpuscular Volume 89.5, Mean Corpuscular Hemoglobin 30.3, Mean Corpuscular Hemoglobin Concent 33.8, Red Cell Distribution Width 14.1, Calcium Level 8.8 12/16/18 09:45 Red Blood Count 4.07 L, Mean Corpuscular Volume 91.2, Mean Corpuscular Hemoglobin 30.0, Mean Corpuscular Hemoglobin Concent 32.9, Red Cell Distribution Width 14.3, Calcium Level 8.0 L Microbiology Microbiology 12/15/18 Urine Culture, Received Pending CLINT COOK MD December 16, 2018 14:43
[2018-12-16 16:00] VITALS: BP 112/63
[2018-12-16 20:00] VITALS: BP 110/66
[2018-12-16] MEDS ORDERED: SIMVASTATIN 10 MG TAB PO SCH (21:00)
[2018-12-16 22:14] LABS: HEMATOCRIT 34.5 % (42.0-52.0); HEMOGLOBIN 11.3 g/dl (13.5-17.5)
[2018-12-17] VITALS: BP 115/67
[2018-12-17 04:00] VITALS: BP 119/83
[2018-12-17 04:24] LABS: HEMATOCRIT 37.2 % (42.0-52.0); HEMOGLOBIN 11.9 g/dl (13.5-17.5); MEAN CORPUSCULAR HEMOGLOBIN 30.1 pg (27.0-33.0); MEAN CORPUSCULAR VOLUME 94.2 fl (80.0-96.0); PLATELET COUNT, AUTOMATED 187 10^3/uL (150-450); RED BLOOD COUNT 3.95 10^6/uL (4.30-6.10); WHITE BLOOD COUNT 9.8 10^3/uL (4.0-10.0)
[2018-12-17 04:38] LABS: CALCIUM LEVEL 7.8 MG/DL (8.8-10.2); CREATININE FOR GFR 1.67 MG/DL (0.70-1.30); GLOMERULAR FILTRATION RATE 42.9 (>42); POTASSIUM SERUM 4.5 MEQ/L (3.5-5.1)
[2018-12-17] MEDS: CIPROFLOXACIN 400 MG in APPROPRIATE DILUENT 1 EA IV SCH (05:30)
[2018-12-17] MEDS: NS 1,000 ML IV SCH ×2 (05:31→11:36)
[2018-12-17 07:00] VITALS: BP 126/90
--- NOTE | 2018-12-17 07:43 | IPNPDOC ---
Text Note Date of Service The patient was seen on 12/17/18. NOTE Kam urine has remained clear off of CBI but it was decided to keep him on IV fluids for another 24 hours since his creatinine came back more elevated yesterday at 1.98. Today his BUNs is 24 and his creatinine is 1.67. His baseline BUNs about 14 with a creatinine of 1.07. He has no other complaints. Physical examination: He is afebrile and his vital signs are stable except for slightly elevated blood pressure. Urine is crystal clear off the CBI. He has no CVA tenderness and his abdomen is soft and nontender. His extremities show no cyanosis clubbing or edema. Impression: -Postoperative hematuria expected after a cystoscopy with litholapaxy, left ureteroscopy and laser stone manipulation with stent placed, prostate biopsy for an elevated PSA, and an enlarged prostate with urinary retention and recurrent infections since September of this year -Acute renal insufficiency Plan: -Continue antibiotics and await CBC from today and BMP to check his creatinine levels. Urine cultures still pending. -Discontinue CBI as long as he urine remains clear and if this remains clear and he is medically stable then he can be discharged to home with follow-up in our office this week A-FIB/CHADSVASC A-FIB History Current/History of A-Fib/PAF?: Yes Current Oral Anticoagulant The: No VS,Fishbone, I+O VS, Fishbone, I+O Laboratory Tests 12/16/18 09:45 Red Blood Count 4.07 L, Mean Corpuscular Volume 91.2, Mean Corpuscular Hemoglobin 30.0, Mean Corpuscular Hemoglobin Concent 32.9, Red Cell Distribution Width 14.3, Calcium Level 8.0 L 12/16/18 22:04 12/17/18 03:54 Red Blood Count 3.95 L, Mean Corpuscular Volume 94.2, Mean Corpuscular Hemo globin 30.1, Mean Corpuscular Hemoglobin Concent 32.0, Red Cell Distribution Width 14.5, Calcium Level 7.8 L Vital Signs Date Time Temp Pulse Resp B/P (MAP) Pulse Ox O2 Delivery O2 Flow Rate FiO2 12/17/18 07:00 98.8 77 18 126/90 (102) 97 12/16/18 00:39 Room Air I&O- Last 24 Hours up to 6 AM 12/17/18 06:00 Intake Total 2275 ml Output Total 7750 ml Balance -5475 ml TABATHA CALABRESE MD December 17, 2018 07:43
[2018-12-17] MEDS: METAMUCIL (PSYLLIUM) PACKET PO SCH (08:24)
[2018-12-17 08:31] VITALS: BP 126/90
[2018-12-17] MEDS: TAMSULOSIN 0.4 MG CAP PO SCH (08:31)
[2018-12-17] MEDS: METOPROLOL TARTRATE 100 MG TAB PO SCH (08:31)
[2018-12-17] MEDS ORDERED: CIPR-250 PO (11:14)
[2018-12-17 12:00] VITALS: BP 112/68
--- NOTE | 2018-12-17 18:16 | DS.PDOC ---
Discharge Summary General Date of Admission December 16, 2018 at 01:15 Date of Discharge 12/17/18 Primary Care Physician: Samantha Earl PA-C, LAC Attending Physician: CLINT COOK MD Specialist/Consultants Involve: TABATHA CALABRESE MD Discharge Summary PROCEDURES PERFORMED DURING STAY: [None]. ADMITTING DIAGNOSES: 1. Hematuria DISCHARGE DIAGNOSES: 1. Hematuria COMPLICATIONS/CHIEF COMPLAINT: Hematuria. HISTORY OF PRESENT ILLNESS: Patient is a 73 year old male with a past medical history significant for history of bladder stones s/p cystoscopy w/ laser lithotripsy, atrial fibrillation, and hypertension who presented to the [facility] ER with complaint of 2 days of gross hematuria, bilateral groin pain, and suprapubic tenderness. Patient had denied any fevers, chills, nausea, or vomiting. Patient had admitted to passing a large clot in his urinary catheter. The patient had recently received a cystoscopy, laser cystolitholapxy, right ureteroscopy with laser lithotripsy and basket extraction of stones, right retrograde pyelogram with intraoperative interpresion of images, right ureteral stent placement, and transrectal ultrasound guided prostate biopsy two days before admission. Patient was admitted to hospitalist service for further management HOSPITAL COURSE: Once admitted, the patient was evaluated by urology. Given the patients recent procedure, it was felt that his hematuria was likely expected. The patient received a [address] [place] [address] Gray catheter and was hand irrigated. The patient received continuous bladder irrigation and was placed on Ciprofloxacin as prophylaxis. The patient continued to improve and was felt fit for discharge. His gray remained clear of blood and he was discharged with follow-up with urology DISCHARGE MEDICATIONS: Please see below. ALLERGIES: Please see below. PHYSICAL EXAMINATION ON DISCHARGE: VITAL SIGNS: Please see below. GENERAL: Awake, alert ,and oriented. He appears in no acute distress. Lying comfortably in bed HEENT: Atrumatic normocephalic. Eyes are nonicteric. Trachea is midline. Mucous membranes are pink and moist NECK: No palpable cervical chain lymphadenopathy CARDIOVASCULAR EXAMINATION: Normal S1, S2. Regular rate and rhythm. No clicks, rubs, or murmurs RESPIRATORY EXAMINATION: Clear vesicular lung sounds bilaterally with mild bibasilar crackles in the bases. No wheezing, rhonci, or rales ABDOMINAL EXAMINATION: Soft, nondistended, nontender to palpation of all 4 quadrants. No suprapubic tenderness. Gray catheter in place. No hematuria EXTREMITIES: No edema. Full and equal pulses in upper and lower extremities bilaterally SKIN: No rashes or lesions NEUROLOGICAL EXAMINATION: No focal neurological deificits noted PSYCHIATRIC EXAMINATION: Mood and affect appear appropriate LABORATORY DATA: Please see below. IMAGING: NONE PROGNOSIS: GOOD ACTIVITY: [As tolerated]. DIET: As tolerated DISCHARGE PLAN: Patient is to be discharged home with gray catheter in place. He is to follow-up with urology in 1 week for further management. He is to continue taking Ciprofloxacin 250mg BID for 14 days. He is to follow-up with PCP in 2-4 weeks DISPOSITION: Home, Self-Care. DISCHARGE CONDITION: [Stable]. TIME SPENT ON DISCHARGE: Greater than 40 minutes. Vital Signs/I&Os Vital Signs Date Time Temp Pulse Resp B/P (MAP) Pulse Ox O2 Delivery O2 Flow Rate FiO2 12/17/18 12:00 98.9 84 19 112/68 (83) 95 12/16/18 00:39 Room Air I&O- Last 24 Hours up to 6 AM 12/17/18 06:00 Intake Total 2275 ml Output Total 7750 ml Balance -5475 ml Laboratory Data Labs 24H Laboratory Tests 2 12/17/18 03:54: Nucleated Red Blood Cells % (auto) 0.0, Anion Gap 3L, Glomerular Filtration Rate 42.9, Blood Urea Nitrogen 24H, Creatinine 1.67H, Sodium Level 139, Potassium Level 4.5, Chloride Level 111H, Carbon Dioxide Level 25, Calcium Level 7.8L CBC/BMP Laboratory Tests 12/16/18 22:04 12/17/18 03:54 Red Blood Count 3.95 L, Mean Corpuscular Volume 94.2, Mean Corpuscular Hemoglobin 30.1, Mean Corpuscular Hemoglobin Concent 32.0, Red Cell Distribution Width 14.5, Calcium Level 7.8 L Microbiology Microbiology 12/15/18 Urine Culture - Final, Complete Discharge Medications Scheduled Ciprofloxacin HCl (Cipro) 250 Mg Tablet, 250 MG PO BID Diltiazem HCl (Diltiazem HCl) 30 Mg Tablet, 30 MG PO Q8H, (Reported) Metoprolol Tartrate (Metoprolol Tartrate) 100 Mg Tablet, 100 MG PO BID, (Reported) [place]-3/Dha/Epa/Fish Oil (Fish Oil 1,000 mg Softgel) 1 Cap Cap, 2 CAP PO BID, (Reported) Simvastatin (Simvastatin) 10 Mg Tablet, 5 MG PO QHS, (Reported) Tamsulosin HCl (Flomax) 0.4 Mg Capsule, 0.4 MG PO DAILY, (Reported) Scheduled PRN Acetaminophen (Acetaminophen) 325 Mg Tablet, 325 MG PO Q4-6H PRN for PAIN, (Reported) Fluticasone Propionate (Flonase Allergy Relief) 9.9 Ml [place].susp, 2 SPRAYS NA DAILY PRN for CONGESTION, (Reported) Nystatin (Nystatin) 15 Gm Cream..g., 1 DOSE TOP PRN PRN for RASH, (Reported) USES IN GROIN AREA WELL OTHER AREAS Allergies Coded Allergies: No Known Allergies (Unverified , 12/14/18) GME ATTESTATION GME ATTESTATION My faculty preceptor for this patient encounter was physically present during the encounter and was fully available. All aspects of the patient interview, examination, medical decision making process, and medical care plan development were reviewed and approved by the faculty preceptor. The faculty preceptor is aware and concurs with the plan as stated in the body of this note and will attest to such by his/her cosignature. ATTENDING NOTE I saw and evaluated the patient. I agree with the findings and plan of care as documented in the resident's note. I spent 45 minutes coordinating this patient's discharge. PRINCE JACOBS DO December 17, 2018 18:16 CLINT COOK MD December 27, 2018 13:05
== END 2018-12-17 17:16 | disposition home or self-care (01) ==
LOC: M ED 19:22 → M ED INP 19:25 → UNDOADMOB 12-16 01:15 → M ED INP 12-16 03:28 → M PCU 12-16 03:28 → UNDODISOB 12-17 17:16
PROVIDERS: ADMIT Internal Medicine; ATTEND Family Medicine
DX: R31.0 Gross hematuria (principal); N39.0 Urinary tract infection, site not specified; N17.9 Acute kidney failure, unspecified; R97.20 Elevated prostate specific antigen [PSA]; I48.2 Chronic atrial fibrillation; I10 Essential (primary) hypertension; E78.49 Other hyperlipidemia; Z79.899 Other long term (current) drug therapy; Z79.82 Long term (current) use of aspirin; R33.9 Retention of urine, unspecified
CPT/HCPCS: 36415; 80048; 81000; 85014; 85018; 85027; 87086; 96361; 96365; 96366; 99284; J0744

== ENCOUNTER → 2019-01-15 | Outpatient (REF) | payer OTHER ==
[~2019-01-15] MED LIST changes: +ACET1TAB55 PO; +ASPI81CH33 PO; +CIPR-250 PO; +METO100T5 PO
[2019-01-15 13:37] LABS: ALBUMIN 3.7 GM/DL (3.2-5.2); BILIRUBIN,TOTAL 1.2 MG/DL (0.2-1.0); CALCIUM LEVEL 8.8 MG/DL (8.8-10.2); CHOLESTEROL RISK RATIO 4.863 (<5); CREATININE FOR GFR 1.49 MG/DL (0.70-1.30); GLOMERULAR FILTRATION RATE 48.9 (>42); POTASSIUM SERUM 4.2 MEQ/L (3.5-5.1); TOTAL PROTEIN 7.2 GM/DL (6.4-8.2)
== END ==
LOC: M SFHCADAM 09:15
PROVIDERS: ATTEND Urology
DX: I10 Essential (primary) hypertension (principal); E78.2 Mixed hyperlipidemia

== ENCOUNTER → 2019-01-17 | Outpatient (REF) | payer OTHER | LOC: M SMT 13:12 | PROVIDERS: ATTEND Urology | DX: Z01.818 Encounter for other preprocedural examination (principal); N20.0 Calculus of kidney ==

== ENCOUNTER 2019-01-25 06:57 | Observation (INO) | payer OTHER ==
[2019-01-25] VITALS (8 sets, daily range): BP systolic 101–110; BP diastolic 58–65
[~2019-01-25] VITALS: Ht 185.4 cm; Wt 115.2 kg
[~2019-01-25 06:57] MED LIST changes: +LR 1,000 ML IV ONE
[2019-01-25] MEDS ORDERED: dexameTHASONE 4 MG/ML 1ML VIAL (J1100) As Ordered ONE (08:26)
[2019-01-25] MEDS ORDERED: PROPOFOL 200 MG/20 ML VIAL As Ordered ONE (08:26)
[2019-01-25] MEDS ORDERED: LIDOCAINE 2% INJ 100 MG/5 ML SDV (FOR ANES.) As Ordered ONE (08:26)
[2019-01-25] MEDS ORDERED: ONDANSETRON 4MG/2ML VIAL (J2405) As Ordered ONE (08:26)
[2019-01-25] MEDS ORDERED: MIDAZOLAM INJ 2 MG/2 ML VIAL (J2250) As Ordered ONE (08:27)
[2019-01-25] MEDS ORDERED: fentaNYL 100 MCG/2 ML INJECTION (J3010) As Ordered ONE ×2 (08:27→11:26)
[2019-01-25] MEDS ORDERED: ESMOLOL INJ 100MG/10ML VIAL As Ordered ONE (10:52)
[2019-01-25] MEDS ORDERED: PHENYLephrine HCL 500 MCG/5 ML (100MCG/ML) SYRINGE (J2370) As Ordered ONE ×3 (11:22→12:22)
[2019-01-25] MEDS ORDERED: METOPROLOL 5 MG/5 ML VIAL As Ordered ONE ×5 (11:22→14:30)
[2019-01-25] MEDS ORDERED: PHENYLEPHRINE INJ 10MG/ML VIAL (J2370) As Ordered ONE (11:57)
[2019-01-25] MEDS ORDERED: FUROSEMIDE 100 MG/10 ML VIAL (J1940) As Ordered ONE (13:11)
[2019-01-25] MEDS ORDERED: ONDANSETRON 4MG/2ML VIAL (J2405) IV PRN (14:15)
[2019-01-25] MEDS ORDERED: fentaNYL 100 MCG/2 ML INJECTION (J3010) IV PRN (14:15)
[2019-01-25] MEDS ORDERED: LR 1,000 ML IV SCH (14:15)
[2019-01-25] MEDS ORDERED: METOPROLOL 5 MG/5 ML VIAL IV ONE (14:45)
[2019-01-25] MEDS ORDERED: DIGOXIN INJ 0.5 MG/2 ML AMP (J1160) As Ordered ONE (14:59)
[2019-01-25] MEDS ORDERED: ACETAMINOPHEN TAB 650MG DOSE (2X325MG) PO PRN (15:00)
[2019-01-25] MEDS ORDERED: DIGOXIN INJ 0.5 MG/2 ML AMP (J1160) IV ONE (15:15)
[2019-01-25 16:17] LABS: HEMATOCRIT 43.6 % (42.0-52.0); HEMOGLOBIN 14.3 g/dl (13.5-17.5); MEAN CORPUSCULAR HEMOGLOBIN 29.1 pg (27.0-33.0); MEAN CORPUSCULAR HGB CONC 32.8 g/dl (32.0-36.5); MEAN CORPUSCULAR VOLUME 88.6 fl (80.0-96.0); PLATELET COUNT, AUTOMATED 337 10^3/uL (150-450); RED BLOOD COUNT 4.92 10^6/uL (4.30-6.10); WHITE BLOOD COUNT 14.4 10^3/uL (4.0-10.0)
--- NOTE | 2019-01-25 16:28 | HPEPDOC ---
General Date of Admission 01/25/2019 Date of Service: Jan 25, 2019 Primary Care Physician: Rob Fleming M.D. Attending Physician: DANDRE KAPOOR MD Chief Complaint The patient is a 73-year-old male admitted with a reason for visit of Benign Prostatic Hyperplasia, Ureteral Stone. Source: Patient, Family Exam Limitations: No limitations Timing/Duration: 1/2-1 hour Severity: Mild Associated Symptoms: Other (none) History of Present Illness 72 years old white male with past medical history of multiple medical problems, came here for cystoscopy and TURP. In the room. Patient was found to have atrial fibrillation with rapid ventric ular response with ventricular rate of 150 Multiple doses of beta blockers were given along with digoxin without any effect later Cardizem 15 mg IV was given with control of his ventricular rate. Patient is being admitted for observation overnight. Patient denies any chest pain, shortness of breath, nausea, vomiting, etc. Home Medications Scheduled Diltiazem HCl (Diltiazem HCl) 30 Mg Tablet, 30 MG PO Q8H, (Reported) Metoprolol Tartrate (Metoprolol Tartrate) 100 Mg Tablet, 100 MG PO BID, (Reported) [place]-3/Dha/Epa/Fish Oil (Fish Oil 1,000 mg Softgel) 1 Cap Cap, 2 CAP PO BID, (Reported) Simvastatin (Simvastatin) 10 Mg Tablet, 5 MG PO QHS, (Reported) Tamsulosin HCl (Flomax) 0.4 Mg Capsule, 0.4 MG PO DAILY, (Reported) Scheduled PRN Acetaminophen (Acetaminophen) 325 Mg Tablet, 325 MG PO Q4-6H PRN for PAIN, (Reported) Fluticasone Propionate (Flonase Allergy Relief) 9.9 Ml [place].susp, 2 SPRAYS NA DAILY PRN for CONGESTION, (Reported) Nystatin (Nystatin) 15 Gm Cream..g., 1 DOSE TOP PRN PRN for RASH, (Reported) USES IN GROIN AREA WELL OTHER AREAS Allergies Coded Allergies: No Known Allergies (Unverified , 01/25/19) Past Medical History Medical History Hypertension, hyperlipidemia, nephrolithiasis, atrial fibrillation, BPH Echocardiogram done recently showed normal global left ventricle systolic function widely enlarged left atrium with mitral annulus calcification. Surgical History Urinary stent placement, lithotripsy, ureteroscopy, right stent placement and prostate biopsy, cystoscopy, right stent removal Social History * Smoker: Denies Alcohol: Denies Drugs: denies A-FIB/CHADSVASC A-FIB History Current/History of A-Fib/PAF?: No Review of Systems Constitutional: Denies: Chills, Fever, Malaise, Night Sweats, Weakness, Fatigue, Weight Loss, Lethargy, Other Eyes: Denies: Pain, Vision change, Conjunctivae inflammation, Eyelid inflamm ation, Redness, Other ENT: Denies: Head Aches, Ear Pain, Dysphagia, Sinus Congestion, Post Nasal Drip, Sore Throat, Epistaxis, Other Symptoms Skin: Denies: Rash, Lesions, Jaundice, Bruising, Itching, Dry, Breakdown, Nail Changes, Other Pulmonary: Denies: Dyspnea, Cough, Pleuritic Chest Pain, Other Symptoms Cardiovascular: Denies: Chest Pain, Palpitations, Orthopnea, Paroxysmal Noc. Dyspnea, Edema, Lt Headedness, Other Symptoms Gastrointestinal: Denies: Nausea, Vomiting, Abdominal Pain, Diarrhea, Constipation, Melena, Hematochezia, Other Symptoms Genitourinary: Denies: Dysuria, Frequency, Incontinence, Hematuria, Retention, Other Symptoms Hematologic: Denies: Bruising, Bleeding Excessively, Petecchia, Purpura, Enlarged Lymph Nodes, Other Hematologic Endocrine: Denies: Polydipsia, Polyphagia, Polyuria, Heat Intolerance, Cold Intolerance, Other Endocrine Sx Musculoskeletal: Denies: Neck Pain, Back Pain, Shoulder Pain, Arm Pain, Hand Pain, Leg Pain, Foot Pain, Joint Pain, Muscle Pain, Spasms, Other Symptoms Neurological: Denies: Weakness, Numbness, Incoordination, Change in speech, Confusion, Seizures, Other Symptoms Psych: Denies: Mood Normal, Anxiety, Depression, Memory Issues, Thoughts of Self Harm, Anger, Thoughts of Harming Other, Other Psych Physical Examination General Exam: Positive: Alert, Cooperative Eye Exam: Positive: PERRLA ENT Exam: Positive: Atraumatic Neck Exam: Positive: Supple Chest Exam: Positive: Clear to auscultation, Normal air movement Heart Exam: Positive: Irregular Rhythm, Normal S1, Normal S2 Telemetry: Positive: Atrial fibrillation Abdomen Exam: Positive: Normal bowel sounds, Soft Skin Exam: Positive: Nl turgor and temperature Psych Exam: Positive: Mental status NL, Oriented x 3 Vital Signs Vital Signs Date Time Temp Pulse Resp B/P (MAP) Pulse Ox O2 Delivery O2 Flow Rate FiO2 01/25/19 15:55 88 18 99/61 (74) 99 01/25/19 15:40 97.6 Laboratory Data Labs 24H Laboratory Tests 2 01/25/19 15:52: CBC/BMP Problems (1) Atrial fibrillation Status: Chronic Problem Text: A. fib with RVR Patient's ventricular rate is under control with Cardizem Start him on Cardizem 30 mg by mouth every 6 hours Continue all home medication once the med reconciliation is done by the pharmacy Admit to PCU with telemetry Possible discharge in a.m. Discussed with Dr. Davis no anticoagulation at least for a few weeks Will call family practice answering service and sign out patient for follow-up Plan / VTE VTE Prophylaxis Ordered?: Yes DANDRE KAPOOR MD Jan 25, 2019 16:28
--- NOTE | 2019-01-25 16:29 | RO ---
DATE OF PROCEDURE: 01/25/2019 PREPROCEDURE DIAGNOSIS: Benign prostatic hyperplasia. POSTPROCEDURE DIAGNOSIS: Benign prostatic hyperplasia. PROCEDURE: Cystoscopy, button transurethral electrovaporization of prostate, removal of right ureteral stent. SURGEON: Dr. Adithya Davis BANK OPERATIONS OFFICER: None. ANESTHESIA: General. OPERATIVE INDICATIONS: This is a 73-year-old male with benign prostatic hyperplasia and urinary retention. He also recently had treatment for a right-sided ureteral stone and had a stent in place. He was brought to the operating room today for the above-listed procedures. DESCRIPTION OF PROCEDURE: The patient was brought to the operating room and general anesthesia induced. Prophylactic antibiotics were infused. He was then placed in the dorsal lithotomy position and prepped and draped in the usual sterile fashion. At this point, a rigid cystoscope was inserted into the urethral meatus and advanced to the bladder. The previously placed stent on the right side was seen. The stent was then grasped and withdrawn from the right ureter and the bladder intact. I then went back in with a button resectoscope using the visual obturator. Of note, the patient had trilobar benign prostatic hyperplasia. I made note of the location of both ureteral orifices as well as the verumontanum. The ureteral orifices were not close to the bladder neck. At this point, I began vaporizing hyperplastic tissue, first on the median lobe and then circumferentially at the bladder neck. Then, I began vaporizing hyperplastic tissue in both lateral lobes. I kept doing this until there was a clear channel established. Throughout the procedure, I made sure not to vaporize close to the ureteral orifices or distal to the verumontanum. Once satisfied a clear channel was open, hemostasis was obtained using the coagulation current. Once satisfied with hemostasis, this marked the conclusion of the procedure. The button resectoscope was then removed and then an 18-Azeri Serna catheter was inserted into the bladder. The balloon was filled with 15 mL of sterile water. Fluid drained clear at the end of the procedure. The catheter was then connected to gravity drainage, and this marked the conclusion of the procedure. The patient was then taken out of the dorsal lithotomy position, awakened from anesthesia and transported to the recovery room in stable condition. Estimated blood loss: 15 mL. Complications: None. Specimens: None. PLAN: The patient will followup in the clinic in approximately 1 week for catheter removal and a voiding trial.
[2019-01-25 16:36] LABS: ALBUMIN 3.4 GM/DL (3.2-5.2); ALT/SGPT 16 U/L (12-78); BILIRUBIN,TOTAL 0.6 MG/DL (0.2-1.0); BLOOD UREA NITROGEN 12 MG/DL (7-18); CALCIUM LEVEL 8.8 MG/DL (8.8-10.2); CARBON DIOXIDE LEVEL 26 MEQ/L (21-32); CHLORIDE LEVEL 105 MEQ/L (98-107); CK-MB VALUE MASS 1.6 NG/ML (<3.6); CPK CREATINE PHOSPHOKINASE 46 U/L (39-308); CREATININE FOR GFR 1.06 MG/DL (0.70-1.30); GLOMERULAR FILTRATION RATE > 60.0 (>42); GLUCOSE, FASTING 110 MG/DL (70-100); MAGNESIUM LEVEL 2.3 MG/DL (1.8-2.4); MB/CK RELATIVE INDEX 3.48 (< OR =4); POTASSIUM SERUM 4.7 MEQ/L (3.5-5.1); SODIUM LEVEL 137 MEQ/L (136-145); TROPONIN I < 0.02 NG/ML (< 0.10)
--- NOTE | 2019-01-26 00:33 | ECGEPIP ---
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
[2019-01-26 04:00] VITALS: BP 108/62
[2019-01-26 05:13] LABS: HEMATOCRIT 38.7 % (42.0-52.0); HEMOGLOBIN 12.7 g/dl (13.5-17.5); MEAN CORPUSCULAR HEMOGLOBIN 28.7 pg (27.0-33.0); MEAN CORPUSCULAR HGB CONC 32.8 g/dl (32.0-36.5); MEAN CORPUSCULAR VOLUME 87.6 fl (80.0-96.0); PLATELET COUNT, AUTOMATED 366 10^3/uL (150-450); RED BLOOD COUNT 4.42 10^6/uL (4.30-6.10); WHITE BLOOD COUNT 13.5 10^3/uL (4.0-10.0)
[2019-01-26 05:39] LABS: ALBUMIN 2.9 GM/DL (3.2-5.2); BILIRUBIN,TOTAL 0.5 MG/DL (0.2-1.0); CALCIUM LEVEL 8.4 MG/DL (8.8-10.2); CREATININE FOR GFR 1.37 MG/DL (0.70-1.30); GLOMERULAR FILTRATION RATE 53.9 (>42); MAGNESIUM LEVEL 2.2 MG/DL (1.8-2.4); TOTAL PROTEIN 6.4 GM/DL (6.4-8.2)
[2019-01-26] MEDS ORDERED: NYSTATIN CREAM 15 GM TOP PRN (07:15)
[2019-01-26] MEDS ORDERED: FLUTICASONE PROP 0.05% NASAL SPRAY 16 GM (FLONASE) PRN (07:15)
[2019-01-26 07:37] VITALS: BP 121/69
[2019-01-26] MEDS ORDERED: PILL CUTTER 1 EACH XX PRN (08:00)
[2019-01-26 08:44] VITALS: BP 121/69
[2019-01-26] MEDS ORDERED: TAMSULOSIN 0.4 MG CAP PO SCH (09:00)
[2019-01-26] MEDS ORDERED: OMEGA-3 1000MG CAPSULE PO SCH (09:00)
[2019-01-26] MEDS ORDERED: METOPROLOL TARTRATE 100 MG TAB PO SCH (09:00)
[2019-01-26] MEDS ORDERED: CARD120C3 PO (09:47)
--- NOTE | 2019-01-26 09:53 | DS.PDOC ---
Discharge Summary General Date of Admission Jan 25, 2019 at 16:02 Date of Discharge 01/26/2019 Attending Physician: DANDRE KAPOOR MD Discharge Summary PROCEDURES PERFORMED DURING STAY: None. ADMITTING DIAGNOSES: 1. A. fib with RVR. DISCHARGE DIAGNOSES: 1. Atrial fibrillation with RVR. COMPLICATIONS/CHIEF COMPLAINT: Benign Prostatic Hyperplasia, Ureteral Stone. HISTORY OF PRESENT ILLNESS: 72 years old white male with past medical history of multiple medical problems, came here for cystoscopy and TURP. In the room. Patient was found to have atrial fibrillation with rapid wilner tricular response with ventricular rate of 150 Multiple doses of beta blockers were given along with digoxin without any effect later Cardizem 15 mg IV was given with control of his ventricular rate. Patient is being admitted for observation overnight. Patient denies any chest pain, shortness of breath, nausea, vomiting, etc.. HOSPITAL COURSE: Patient was admitted with the rapid ventricular response. Patient responded very well to Cardizem IV. Patient was started on Cardizem 30 mg by mouth every 6 hours and remained under control overnight, patient can be discharged home on by mouth Cardizem CD 120 mg by mouth daily and he will follow with his Dr. Skinner in his primary care physician as per schedule. DISCHARGE MEDICATIONS: Please see below. ALLERGIES: Please see below. PHYSICAL EXAMINATION ON DISCHARGE: VITAL SIGNS: Please see below. GENERAL: Normal HEENT: PERRLA NECK: Supple CARDIOVASCULAR EXAMINATION: S1, S2, irregular RESPIRATORY EXAMINATION: Clear to A&P ABDOMINAL EXAMINATION: , Soft, nontender, bowel sound present EXTREMITIES: No clubbing, cyanosis, edema SKIN: Normal NEUROLOGICAL EXAMINATION: . No focal motor sensory deficit PSYCHIATRIC EXAMINATION: Normal LABORATORY DATA: Please see below. IMAGING: As per EMR PROGNOSIS: Good ACTIVITY: As tolerated. DIET: Regular DISCHARGE PLAN: As per urology discharge instructions DISPOSITION: . Home DISCHARGE INSTRUCTIONS: 1. As above. ITEMS TO FOLLOWUP ON ON OUTPATIENT: 1. As above. DISCHARGE CONDITION: Stable. TIME SPENT ON DISCHARGE: 30 minutes. Vital Signs/I&Os Vital Signs Date Time Temp Pulse Resp B/P (MAP) Pulse Ox O2 Delivery O2 Flow Rate FiO2 01/26/19 08:44 89 121/69 01/26/19 07:37 98.2 20 95 I&O- Last 24 Hours up to 6 AM 01/26/19 06:00 Intake Total 3630 ml Output Total 2750 ml Balance 880 ml Laboratory Data Labs 24H Laboratory Tests 2 01/25/19 15:52: Nucleated Red Blood Cells % (auto) 0.0, Anion Gap 6L, Glomerular Filtration Rate > 60.0, Blood Urea Nitrogen 12, Creatinine 1.06, Sodium Level 137, Potassium Level 4.7, Chloride Level 105, Carbon Dioxide Level 26, Calcium Level 8.8, Aspartate Amino Transf (AST/SGOT) 10, Alanine Aminotransferase (ALT/SGPT) 16, Total Creatine Kinase 46, Alkaline Phosphatase 71, Total Bilirubin 0.6, Total Protein 7.0, Albumin 3.4, Magnesium Level 2.3, Creatine Kinase MB 1.6, Creatine Kinase MB Relative Index 3.48, Troponin I < 0.02, Albumin/Globulin Ratio 0.94L, Thyroid Stimulating Hormone (TSH) 1.390 01/26/19 04:44: Nucleated Red Blood Cells % (auto) 0.0, Anion Gap 7L, Glomerular Filtration Rate 53.9, Blood Urea Nitrogen 16, Creatinine 1.37H, Sodium Level 138, Potassium Leve l 5.0, Chloride Level 104, Carbon Dioxide Level 27, Calcium Level 8.4L, Aspartate Amino Transf (AST/SGOT) 14, Alanine Aminotransferase (ALT/SGPT) 15, Alkaline Phosphatase 63, Total Bilirubin 0.5, Total Protein 6.4, Albumin 2.9L, Magnesium Level 2.2, Albumin/Globulin Ratio 0.83L CBC/BMP Laboratory Tests 01/25/19 15:52 Red Blood Count 4.92, Mean Corpuscular Volume 88.6, Mean Corpuscular Hemoglobin 29.1, Mean Corpuscular Hemoglobin Concent 32.8, Red Cell Distribution Width 12. 7, Calcium Level 8.8, Aspartate Amino Transf (AST/SGOT) 10, Alanine Aminotransferase (ALT/SGPT) 16, Total Creatine Kinase 46, Alkaline Phosphatase 71, Total Bilirubin 0.6, Total Protein 7.0, Albumin 3.4 01/26/19 04:44 Red Blood Count 4.42, Mean Corpuscular Volume 87.6, Mean Corpuscular Hemoglobin 28.7, Mean Corpuscular Hemoglobin Concent 32.8, Red Cell Distribution Width 12. 7, Calcium Level 8.4 L, Aspartate Amino Transf (AST/SGOT) 14, Alanine Aminotransferase (ALT/SGPT) 15, Alkaline Phosphatase 63, Total Bilirubin 0.5, Total Protein 6.4, Albumin 2.9 L Discharge Medications Scheduled Diltiazem HCl (Diltiazem HCl) 30 Mg Tablet, 30 MG PO Q8H, (Reported) Diltiazem Hcl (Cardizem Cd) 120 Mg Cap.er.24h, 120 MG PO DAILY Metoprolol Tartrate (Metoprolol Tartrate) 100 Mg Tablet, 100 MG PO BID, (Reported) [place]-3/Dha/Epa/Fish Oil (Fish Oil 1,000 mg Softgel) 1 Cap Cap, 2 CAP PO BID, (Reported) Simvastatin (Simvastatin) 10 Mg Tablet, 5 MG PO QHS, (Reported) Tamsulosin HCl (Flomax) 0.4 Mg Capsule, 0.4 MG PO DAILY, (Reported) Scheduled PRN Acetaminophen (Acetaminophen) 325 Mg Tablet, 325 MG PO Q4-6H PRN for PAIN, (Reported) Fluticasone Propionate (Flonase Allergy Relief) 9.9 Ml [place].susp, 2 SPRAYS NA DAILY PRN for CONGESTION, (Reported) Nystatin (Nystatin) 15 Gm Cream..g., 1 DOSE TOP PRN PRN for RASH, (Reported) USES IN GROIN AREA WELL OTHER AREAS Allergies Coded Allergies: No Known Allergies (Unverified , 01/25/19) DANDRE KAPOOR MD Jan 26, 2019 09:53
[2019-01-26] MEDS ORDERED: SIMVASTATIN 10 MG TAB PO SCH (21:00)
== END 2019-01-26 12:32 | disposition home or self-care (01) ==
LOC: M SDC 06:57 → M OR 16:02 → M PCU 16:52
PROVIDERS: ADMIT Urology; ATTEND Internal Medicine
DX: N40.1 Benign prostatic hyperplasia with lower urinary tract symptoms (principal); I48.91 Unspecified atrial fibrillation; I12.9 Hypertensive chronic kidney disease with stage 1 through stage 4 chronic kidney disease, or unspecified chronic kidney disease; N18.3 Chronic kidney disease, stage 3 (moderate); E78.5 Hyperlipidemia, unspecified; R97.20 Elevated prostate specific antigen [PSA]; Z87.442 Personal history of urinary calculi; Z79.899 Other long term (current) drug therapy
CPT/HCPCS: 36415; 52601; 80053; 82550; 82553; 83735; 84443; 84484; 85027; 93005; C1769; J0690; J1100; J1160; J1940; J2250; J2370; J2405; J3010

== ENCOUNTER → 2019-03-19 | Outpatient (REF) | payer OTHER ==
[~2019-03-19] MED LIST changes: +CARD120C3 PO; -LR 1,000 ML IV ONE
[2019-03-19 14:02] LABS: ALBUMIN 3.7 GM/DL (3.2-5.2); BILIRUBIN,TOTAL 0.9 MG/DL (0.2-1.0); CALCIUM LEVEL 9.5 MG/DL (8.8-10.2); CHOLESTEROL RISK RATIO 3.741 (<5); CREATININE FOR GFR 1.27 MG/DL (0.70-1.30); GLOMERULAR FILTRATION RATE 58.9 (>42); POTASSIUM SERUM 4.4 MEQ/L (3.5-5.1); TOTAL PROTEIN 6.9 GM/DL (6.4-8.2)
== END ==
LOC: M SFHCLACO 12:49
PROVIDERS: ATTEND Physician Assistant
DX: I10 Essential (primary) hypertension (principal); E78.2 Mixed hyperlipidemia

== ENCOUNTER → 2019-03-22 | Outpatient (REF) | payer OTHER ==
[2019-03-22 14:09] LABS: APPEARANCE, URINE CLEAR (CLEAR); BACTERIA, URINE AUTO 1+ (NEGATIVE); BILIRUBIN, URINE AUTO NEGATIVE (NEGATIVE); BLOOD, URINE BLOOD 1+ (NEGATIVE); COLOR, URINE STRAW (YELLOW); GLUCOSE, URINE (UA) AUTO NEGATIVE (NEGATIVE); KETONE, URINE AUTO NEGATIVE (NEGATIVE); LEUKOCYTE ESTERASE, URINE AUTO 3+ (NEGATIVE); NITRITE, URINE AUTO NEGATIVE (NEGATIVE); PROTEIN, URINE AUTO NEGATIVE (NEGATIVE); RBC, URINE AUTO 12 /HPF (0-3); SPECIFIC GRAVITY URINE AUTO 1.005 (1.002-1.035); SQUAMOUS EPITHELIAL CELL UR AU 0 /HPF (0-6); UROBILINOGEN, URINE AUTO 0.2 mg/dL (0.0-2.0); WBC, URINE AUTO 30 /HPF (0-3)
== END ==
LOC: M SMT 13:22
PROVIDERS: ATTEND Nurse Practitioner Family
DX: N40.1 Benign prostatic hyperplasia with lower urinary tract symptoms (principal)

== ENCOUNTER → 2019-05-03 | Outpatient (REF) | payer OTHER | LOC: M SFHCADAM 08:47 | PROVIDERS: ATTEND Nurse Practitioner Family | DX: R97.20 Elevated prostate specific antigen [PSA] (principal) ==

== ENCOUNTER → 2019-09-17 | Outpatient (REF) | payer OTHER ==
[~2019-09-17] MED LIST changes: -SIMV10TA2 PO; +SIMV10TA21 PO
[2019-09-17 13:27] LABS: BILIRUBIN,TOTAL 1.2 MG/DL (0.2-1.0); CALCIUM LEVEL 9.1 MG/DL (8.8-10.2); CHOLESTEROL RISK RATIO 4.346 (<5); CREATININE FOR GFR 1.32 MG/DL (0.70-1.30); GLOMERULAR FILTRATION RATE 56.1 (>42); POTASSIUM SERUM 4.4 MEQ/L (3.5-5.1); TOTAL PROTEIN 7.5 GM/DL (6.4-8.2)
== END ==
LOC: M SFHCADAM 08:40
PROVIDERS: ATTEND Physician Assistant
DX: I10 Essential (primary) hypertension (principal); E78.2 Mixed hyperlipidemia

== ENCOUNTER → 2019-09-23 | Outpatient (REF) | payer OTHER | LOC: M SFHCADAM 08:57 | PROVIDERS: ATTEND Nurse Practitioner Family | DX: R97.20 Elevated prostate specific antigen [PSA] (principal) ==

== ENCOUNTER → 2019-09-25 | Outpatient (REF) | payer OTHER | LOC: M LABDRWAD 12:36 | PROVIDERS: ATTEND Nurse Practitioner Family | DX: R97.20 Elevated prostate specific antigen [PSA] (principal) ==

== ENCOUNTER 2020-04-09 17:14 | Emergency (ER) | payer OTHER, MEDICARE ==
[~2020-04-09] VITALS: Ht 185.4 cm; Wt 125.4 kg
[~2020-04-09 17:14] MED LIST changes: -LISI-672 PO; +LISI30TA4 PO
[2020-04-09 19:58] LABS: BASO # 0.1 10^3/uL (0.0-0.2); BASO % 0.7 % (0.0-1.0); EOS # 0.1 10^3/uL (0.0-0.5); EOS % 0.7 % (0.0-3.0); HEMATOCRIT 47.8 % (42.0-52.0); HEMOGLOBIN 16.3 g/dl (13.5-17.5); LYMPH # 1.3 10^3/uL (1.5-5.0); LYMPH % 11.4 % (24.0-44.0); MEAN CORPUSCULAR HEMOGLOBIN 31.7 pg (27.0-33.0); MEAN CORPUSCULAR HGB CONC 34.1 g/dl (32.0-36.5); MEAN CORPUSCULAR VOLUME 92.8 fl (80.0-96.0); MONO # 1.1 10^3/uL (0.0-0.8); MONO % 9.7 % (0.0-5.0); NEUTROPHILS # 8.5 10^3/uL (1.5-8.5); NEUTROPHILS % 76.2 % (36.0-66.0); PLATELET COUNT, AUTOMATED 229 10^3/uL (150-450); RED BLOOD COUNT 5.15 10^6/uL (4.30-6.10); WHITE BLOOD COUNT 11.1 10^3/uL (4.0-10.0)
[2020-04-09] MEDS ORDERED: LIDOCAINE 2% 5ML JELLY UROJET TOP ONE (20:00)
[2020-04-09 20:11] LABS: INR 1.06
[2020-04-09 20:12] LABS: PARTIAL THROMBOPLASTIN TIME 31.8 SECONDS (25.0-38.4)
--- NOTE | 2020-04-09 20:12 | REPVR ---
PROCEDURE INFORMATION: Exam: CT Abdomen And Pelvis Without Contrast Exam date and time: 04/09/2020 7:19 PM Age: 74 years old Clinical indication: Other: Hematuria TECHNIQUE: Imaging protocol: Computed tomography of the abdomen and pelvis without contrast. Radiation optimization: All CT scans at this facility use at least one of these dose optimization techniques: automated exposure control; mA and/or kV adjustment per patient size (includes targeted exams where dose is matched to clinical indication); or iterative reconstruction. COMPARISON: 1. CT ABD PELVIS W/O FOL BY WIT 10/14/2018 11:07 AM 2. SR - CT Chest with contrast 10/14/2018 11:07:00 AM FINDINGS: Liver: Normal. No mass. Gallbladder and bile ducts: Normal. No calcified stones. No ductal dilation. Pancreas: Normal. No ductal dilation. Spleen: Normal. No splenomegaly. Adrenals: Normal. No mass. Kidneys and ureters: There is moderate to severe bilateral hydronephrosis with mild hydroureter. No ureteral calculi. Etiology of obstruction is unclear. Multiple bilateral hypodense renal lesions. The largest on the right is 8.4 cm and consistent with a simple cyst. The largest on the left is 2.0 cm and consistent with a simple cyst. Some of the smaller lesions are difficult to characterize given their small size and the lack of intravenous contrast, but most likely simple cysts. Stomach and bowel: No bowel dilatation to indicate obstruction. Multiple colonic diverticula without gross features of focal diverticulitis. Appendix: No evidence of appendicitis. Intraperitoneal space: Unremarkable. No free air. No significant fluid collection. 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 The thoracic aorta is tortuous and atherosclerotic. There is coronary atherosclerosis. There are calcifications at the aortic valve and mitral valve annulus. There is wall thickening in the distal esophagus suggesting mild esophagitis. Lymph nodes: Unremarkable. No enlarged lymph nodes. Bladder: Bladder calculus is no longer present. Diffuse bladder wall thickening, with mild adjacent fat stranding. Small right bladder diverticulum. Reproductive: Marked enlargement of the prostate, with soft tissue density which is lobulated at the base of the bladder which may from the prostate, although bladder cancer is not excluded. Multiple prostatic calcifications. Bones/joints: Multilevel degenerative disc and facet disease. Soft tissues: Small fat containing left inguinal hernia. IMPRESSION: 1. Moderate to severe bilateral hydronephrosis with mild hydroureter of uncertain etiology. 2. Diffuse bladder wall thickening, with mild adjacent fat stranding. Small right bladder diverticulum. Bladder calculus is no longer present. Enlarged prostate which may account for lobulated soft tissue density at the bladder base, although bladder carcinoma is not excluded. Suggest urologic consultation. 3. Diverticula without gross focal features of diverticulitis. 4. Bilateral renal cysts, the largest consistent with simple cysts. Some of the smaller lesions are difficult to characterize given their small size and the lack of intravenous contrast, but most likely simple cysts. Electronically signed by: Rose Mary Lane On 04/09/2020 20:12:09 PM
[2020-04-09] MEDS ORDERED: MACR100C43 PO (21:15)
[2020-04-09] MEDS ORDERED: NITROFURANTOIN (MACROBID) 100 MG CAP PO ONE (21:15)
[2020-04-09] MEDS ORDERED: CIPR5SUS PO (21:32)
[2020-04-09 21:48] VITALS: BP 149/78
[2020-05-18] MEDS ORDERED: TAMS1CAP17 (13:52)
== END 2020-04-09 21:49 | disposition home or self-care (01) ==
LOC: M ED 17:14
DX: N39.0 Urinary tract infection, site not specified (principal); N13.30 Unspecified hydronephrosis; N40.0 Benign prostatic hyperplasia without lower urinary tract symptoms; R33.9 Retention of urine, unspecified; R31.9 Hematuria, unspecified; Z79.899 Other long term (current) drug therapy

== ENCOUNTER → 2020-05-15 | Outpatient (REF) | payer OTHER ==
[~2020-05-15] MED LIST changes: +BACT800T5 PO; +CIPR5SUS PO; +MACR100C43 PO; +TAMS1CAP17
[2020-05-15 11:35] LABS: BASO % 0.4 % (0.0-1.0); EOS % 0.2 % (0.0-3.0); HEMATOCRIT 43.9 % (42.0-52.0); HEMOGLOBIN 14.5 g/dl (13.5-17.5); LYMPH # 0.7 10^3/uL (1.5-5.0); LYMPH % 7.2 % (24.0-44.0); MEAN CORPUSCULAR HEMOGLOBIN 31.6 pg (27.0-33.0); MEAN CORPUSCULAR VOLUME 95.6 fl (80.0-96.0); MONO # 1.3 10^3/uL (0.0-0.8); MONO % 14.3 % (0.0-5.0); NEUTROPHILS # 7.1 10^3/uL (1.5-8.5); NEUTROPHILS % 76.8 % (36.0-66.0); PLATELET COUNT, AUTOMATED 216 10^3/uL (150-450); RED BLOOD COUNT 4.59 10^6/uL (4.30-6.10); WHITE BLOOD COUNT 9.2 10^3/uL (4.0-10.0)
[2020-05-15 11:45] LABS: INR 1.18; PROTHROMBIN TIME 15.3 SECONDS (12.5-14.3)
[2020-05-15 11:46] LABS: PARTIAL THROMBOPLASTIN TIME 34.2 SECONDS (24.2-38.5)
[2020-05-15 12:00] LABS: ALBUMIN 3.7 GM/DL (3.2-5.2); BILIRUBIN,TOTAL 2.4 MG/DL (0.2-1.0); CALCIUM LEVEL 8.6 MG/DL (8.8-10.2); CREATININE FOR GFR 1.47 MG/DL (0.70-1.30); GLOMERULAR FILTRATION RATE 49.6 (>42); POTASSIUM SERUM 4.1 MEQ/L (3.5-5.1); TOTAL PROTEIN 6.8 GM/DL (6.4-8.2)
[2020-05-15 13:05] LABS: APPEARANCE, URINE CLOUDY (CLEAR); BACTERIA, URINE AUTO 2+ (NEGATIVE); BILIRUBIN, URINE AUTO NEGATIVE (NEGATIVE); BLOOD, URINE BLOOD 3+ (NEGATIVE); COLOR, URINE AMBER (YELLOW); GLUCOSE, URINE (UA) AUTO NEGATIVE (NEGATIVE); KETONE, URINE AUTO NEGATIVE (NEGATIVE); LEUKOCYTE ESTERASE, URINE AUTO 3+ (NEGATIVE); MUCUS, URINE SMALL (NEGATIVE); NITRITE, URINE AUTO POSITIVE (NEGATIVE); PROTEIN, URINE AUTO 2+ mg/dL (NEGATIVE); RBC, URINE AUTO TNTC /HPF (0-3); SPECIFIC GRAVITY URINE AUTO 1.013 (1.002-1.035); SQUAMOUS EPITHELIAL CELL UR AU 0 /HPF (0-6); UROBILINOGEN, URINE AUTO 0.2 mg/dL (0.0-2.0); WBC, URINE AUTO 136 /HPF (0-3)
== END ==
LOC: M SFHCPLAZ 08:10
PROVIDERS: ATTEND Family Medicine
DX: I10 Essential (primary) hypertension (principal); R31.9 Hematuria, unspecified; N40.1 Benign prostatic hyperplasia with lower urinary tract symptoms

== ENCOUNTER → 2020-05-15 | Outpatient (CLI) | payer OTHER, MEDICARE ==
--- NOTE | 2020-05-25 17:22 | REP ---
CHEST X-RAY: 3-VIEWS HISTORY: Preop. COMPARISON: Chest x-ray 12/03/2018. FINDINGS: The lungs are symmetrically aerated. No infiltrate is seen. Pleural angles are sharp. Heart size is normal. The aorta is somewhat tortuous. Pulmonary vasculature is not increased. There is an 8-mm nodular density in the right base just above the right hemidiaphragm partially overlapping the posterior aspect of the right ninth rib. This could be nipple silhouette, but I cannot exclude a pulmonary nodule. It is not seen on the lateral radiograph. There are some degenerative changes in the thoracic spine. No acute bony abnormality is seen. IMPRESSION: A 9-mm nodular density projecting in the right lung base, rule out pulmonary nodule. Recommend chest CT for further evaluation. Otherwise, no acute disease. MTDD
== END ==
LOC: M ADAMS 07:54
PROVIDERS: ATTEND Urology
DX: R31.9 Hematuria, unspecified (principal); N40.1 Benign prostatic hyperplasia with lower urinary tract symptoms; R91.8 Other nonspecific abnormal finding of lung field

== ENCOUNTER → 2020-05-20 | Outpatient (REF) | payer OTHER ==
[2020-05-20 14:31] LABS: ALBUMIN 3.8 GM/DL (3.2-5.2); CALCIUM LEVEL 9.1 MG/DL (8.8-10.2); CHOLESTEROL RISK RATIO 5.071 (<5); CREATININE FOR GFR 1.32 MG/DL (0.70-1.30); GLOMERULAR FILTRATION RATE 56.1 (>42); POTASSIUM SERUM 4.4 MEQ/L (3.5-5.1); TOTAL PROTEIN 7.5 GM/DL (6.4-8.2)
== END ==
LOC: M SFHCPLAZ 08:34 → M SFHCADAM 08:39
PROVIDERS: ATTEND Physician Assistant
DX: I10 Essential (primary) hypertension (principal); E78.2 Mixed hyperlipidemia; R97.20 Elevated prostate specific antigen [PSA]

== ENCOUNTER → 2020-05-20 | Outpatient (CLI) | payer OTHER, MEDICARE | LOC: M LABSMTC 11:12 | PROVIDERS: ATTEND Anesthesiology | DX: Z01.812 Encounter for preprocedural laboratory examination (principal); Z20.828 Contact with and (suspected) exposure to other viral communicable diseases | CPT/HCPCS: C9803; U0003 ==

== ENCOUNTER 2020-05-25 12:47 | Day surgery (SDC) | payer OTHER ==
[~2020-05-25] VITALS: Ht 185.4 cm; Wt 117.8 kg
[~2020-05-25 12:47] MED LIST changes: -BACT800T5 PO; +LR 1,000 ML IV ONE; +ceFAZolin SOD 2 GM in IV 1 EA IV ONE
[2020-05-25] MEDS ORDERED: SIMV10TA21 PO (13:16)
[2020-05-25] MEDS ORDERED: ONDANSETRON 4MG/2ML VIAL As Ordered ONE (14:29)
[2020-05-25] MEDS ORDERED: LIDOCAINE 2% 100MG/5ML SDV (FOR ANES.) As Ordered ONE (14:29)
[2020-05-25] MEDS ORDERED: MIDAZOLAM INJ 2MG/2ML VIAL (J2250 PER 1MG) As Ordered ONE (14:29)
[2020-05-25] MEDS ORDERED: dexameTHASONE 4 MG/ML 1ML VIAL (J1100 PER 1MG) As Ordered ONE (14:29)
[2020-05-25] MEDS ORDERED: propofoL 200 MG/20 ML VIAL As Ordered ONE (14:29)
[2020-05-25] MEDS ORDERED: fentaNYL 100 MCG/2 ML INJECTION (J3010) As Ordered ONE ×2 (14:29→18:35)
[2020-05-25] MEDS ORDERED: BACT800T5 PO (17:20)
[2020-05-25] MEDS ORDERED: ROCURONIUM BROMIDE 50 MG/5 ML VIAL As Ordered ONE (17:32)
[2020-05-25] MEDS ORDERED: PHENYLephrine HCL 500 MCG/5 ML (100MCG/ML) SYRINGE (J2370) As Ordered ONE ×3 (17:32→18:49)
[2020-05-25] MEDS ORDERED: ACETAMINOPHEN 1000MG 100ML IV BTL (OFIRMEV) (J0131 PER 10MG) As Ordered ONE (18:35)
[2020-05-25] MEDS ORDERED: SUGAMMADEX SODIUM 500 MG/5 ML VIAL (BRIDION) As Ordered ONE (18:51)
[2020-05-25] MEDS ORDERED: FUROSEMIDE 100MG/10ML VIAL (J1940) As Ordered ONE (18:56)
[2020-05-25 19:44] VITALS: BP 134/94
[2020-05-25] MEDS ORDERED: ACETAMINOPHEN TAB 650MG DOSE (2X325MG) PO PRN (19:45)
[2020-05-25] MEDS ORDERED: PERCOCET 5MG/325MG TAB PO PRN (19:45)
[2020-05-25] MEDS ORDERED: fentaNYL 100 MCG/2 ML INJECTION (J3010) IV PRN (19:45)
[2020-05-25] MEDS ORDERED: ONDANSETRON 4MG/2ML VIAL IV PRN (19:45)
[2020-05-25] MEDS ORDERED: METOCLOPRAMIDE INJ 10MG/2ML VIAL (J2765 PER 1) IV PRN (19:45)
[2020-05-25] MEDS ORDERED: LR 1,000 ML IV SCH (19:45)
--- NOTE | 2020-05-26 10:33 | RO ---
DATE OF PROCEDURE: May 25, 2020 PRE-PROCEDURE DIAGNOSIS: Benign prostatic hyperplasia with urinary retention. POST-PROCEDURE DIAGNOSIS: Benign prostatic hyperplasia with urinary retention. PROCEDURES: 1. Cystoscopy. 2. Button transurethral electrovaporization of the prostate. SURGEON: Adithya Davis MD E[place] BUNNY: None. ANESTHESIA: General. OPERATIVE INDICATIONS: This is a 74-year-old male with benign prostatic hyperplasia with urinary retention. He was brought to the operating room today for the above listed procedure. Of note, he has had the procedure done previously, approximately 1 years ago. DESCRIPTION OF PROCEDURE: The patient was brought to the operating room and general anesthesia was induced. Prophylactic antibiotics were infused. He was placed in the dorsal lithotomy position and prepped and draped in the usual sterile fashion. At this point, a resectoscope was inserted into the urethral meatus and advanced to the bladder using a visual obturator. Of note, the patient had moderate regrowth of bilobar prostatic hyperplasia. He also had calcifications within his prostatic urethra from the previous surgery. At this point, I began vaporizing hyperplastic tissue circumferentially at the bladder neck and then on both lateral lobes of disease. I kept doing this until there was a clear channel established. Of note, I made sure not to vaporize close to the ureteral orifices or distal to the verumontanum. Once there was a clear a channel established, hemostasis was obtained using the coagulation current. The resectoscope was then removed and then an 18-Georgian Serna catheter was inserted into the bladder. The balloon was filled with 15 mL of sterile water. The catheter was connected to gravity drainage. This marked the conclusion of the procedure. The patient was then awakened from anesthesia, taken out of the dorsal lithotomy position, and transferred to the recovery room in stable condition. ESTIMATED BLOOD LOSS: 15 mL. COMPLICATIONS: None. SPECIMENS: None. PLAN: The patient will follow up in the [facility]rology [facility] in approximately one week for catheter removal and a voiding trial. DANIEL
== END 2020-05-25 20:02 | disposition home or self-care (01) ==
LOC: M SDC 12:47
PROVIDERS: ATTEND Urology
DX: N40.1 Benign prostatic hyperplasia with lower urinary tract symptoms (principal); I48.91 Unspecified atrial fibrillation; I10 Essential (primary) hypertension; E78.5 Hyperlipidemia, unspecified; Z79.899 Other long term (current) drug therapy
CPT/HCPCS: 52601; J0131; J0690; J1100; J1940; J2250; J2370; J2405; J3010

== ENCOUNTER → 2020-09-23 | Outpatient (REF) | payer OTHER ==
[~2020-09-23] MED LIST changes: +BACT800T5 PO; -LR 1,000 ML IV ONE; -ceFAZolin SOD 2 GM in IV 1 EA IV ONE
== END ==
LOC: M SMT 12:31
PROVIDERS: ATTEND Nurse Practitioner Family
DX: R97.20 Elevated prostate specific antigen [PSA] (principal)

== ENCOUNTER → 2020-12-02 | Outpatient (REF) | payer OTHER ==
[2020-12-02 13:57] LABS: BILIRUBIN,TOTAL 1.2 MG/DL (0.2-1.0); CALCIUM LEVEL 9.3 MG/DL (8.8-10.2); CHOLESTEROL RISK RATIO 3.105 (<5); CREATININE FOR GFR 1.27 MG/DL (0.70-1.30); GLOMERULAR FILTRATION RATE 58.5 (>42); TOTAL PROTEIN 7.5 GM/DL (6.4-8.2)
== END ==
LOC: M SFHCADAM 08:14
PROVIDERS: ATTEND Physician Assistant
DX: I10 Essential (primary) hypertension (principal); E78.2 Mixed hyperlipidemia

== ENCOUNTER → 2021-06-07 | Outpatient (REF) | payer OTHER ==
[2021-06-07 14:15] LABS: ALBUMIN 4.1 GM/DL (3.2-5.2); BILIRUBIN,TOTAL 1.5 MG/DL (0.2-1.0); CALCIUM LEVEL 9.5 MG/DL (8.8-10.2); CHOLESTEROL RISK RATIO 3.638 (<5); CREATININE FOR GFR 1.3 MG/DL (0.70-1.30); GLOMERULAR FILTRATION RATE 56.8 (>42); POTASSIUM SERUM 4.3 MEQ/L (3.5-5.1); TOTAL PROTEIN 7.5 GM/DL (6.4-8.2)
== END ==
LOC: M SFHCADAM 08:51
PROVIDERS: ATTEND Physician Assistant
DX: I10 Essential (primary) hypertension (principal); E78.2 Mixed hyperlipidemia

== ENCOUNTER → 2021-12-06 | Outpatient (REF) | payer OTHER ==
[~2021-12-06] MED LIST changes: -ASPI-286 PO; +SM C81CH2 PO
[2021-12-06 13:49] LABS: ALBUMIN 4.3 GM/DL (3.2-5.2); CHOLESTEROL RISK RATIO 4.562 (<5); CREATININE FOR GFR 1.32 MG/DL (0.70-1.30); GLOMERULAR FILTRATION RATE 55.8 (>42); POTASSIUM SERUM 4.2 MEQ/L (3.5-5.1); TOTAL PROTEIN 7.4 GM/DL (6.4-8.2)
== END ==
LOC: M SFHCADAM 08:40
PROVIDERS: ATTEND Physician Assistant
DX: I10 Essential (primary) hypertension (principal); E78.2 Mixed hyperlipidemia

== ENCOUNTER → 2022-04-06 | Outpatient (REF) | payer OTHER ==
[~2022-04-06] MED LIST changes: +NYST-13 TOP; -NYST10CR TOP
[2022-04-06 13:41] LABS: APPEARANCE, URINE MANUAL CLEAR (CLEAR); BILIRUBIN, URINE MANUAL NEGATIVE (NEGATIVE); COLOR, URINE MANUAL DK YELLOW (YELLOW); GLUCOSE, URINE (UA) MANUAL NEGATIVE (NEGATIVE); KETONE, URINE MANUAL NEGATIVE (NEGATIVE); PROTEIN, URINE MANUAL 1+ mg/dL (NEGATIVE); SPECIFIC GRAVITY,URINE MANUAL 1.015 (1.002-1.035); UROBILINOGEN, URINE MANUAL NORMAL (NORMAL)
[2022-04-06 13:42] LABS: BLOOD URINE MANUAL POSITIVE (NEGATIVE); LEUKOCYTE ESTERASE, URINE MAN NEGATIVE (NEGATIVE); NITRITE, URINE MANUAL NEGATIVE (NEGATIVE)
[2022-04-06 14:11] LABS: BACTERIA, URINE SMALL AMOUNT; CALCIUM OXALATE CRYSTALS,URINE LARGE AMOUNT /hpf; HYALINE CAST, URINE NONE SEEN /lpf (0-1); RBC, URINE 0-1 /hpf (0-3); SQUAMOUS EPITHELIAL CELL URINE NONE SEEN /hpf (SMALL AMT); WBC, URINE 0-1 /hpf (0-3)
== END ==
LOC: M SMT 12:47
PROVIDERS: ATTEND Urology
DX: R31.0 Gross hematuria (principal)

== ENCOUNTER → 2022-06-21 | Outpatient (REF) | payer MEDICARE, OTHER ==
[2022-06-21 14:19] LABS: HEMATOCRIT 50.5 % (42.0-52.0); HEMOGLOBIN 16.1 g/dl (13.5-17.5); MEAN CORPUSCULAR HEMOGLOBIN 31.3 pg (27.0-33.0); MEAN CORPUSCULAR HGB CONC 31.9 g/dl (32.0-36.5); MEAN CORPUSCULAR VOLUME 98.2 fl (80.0-96.0); PLATELET COUNT, AUTOMATED 206 10^3/uL (150-450); RED BLOOD COUNT 5.14 10^6/uL (4.30-6.10)
[2022-06-21 15:09] LABS: ATYPICAL LYMPH 3 % (0-5); EOSINOPHILS 1 % (0-3); LYMPHOCYTES 21 % (16-44); MONOCYTES 21 % (0-5); NEUTROPHILS 53 % (28-66)
[2022-06-21 15:11] LABS: PLATELET ESTIMATE NORMAL (NORMAL)
[2022-06-21 15:13] LABS: CALCIUM LEVEL 9.2 MG/DL (8.8-10.2); CREATININE FOR GFR 1.35 MG/DL (0.70-1.30); GLOMERULAR FILTRATION RATE 54.3 (>42); POTASSIUM SERUM 4.6 MEQ/L (3.5-5.1)
[2022-06-21 15:14] LABS: ALBUMIN 4.2 GM/DL (3.2-5.2); THYROID STIMULATING HORMONE 2.65 uIU/ML (0.358-3.740); TOTAL PROTEIN 7.6 GM/DL (6.4-8.2)
[2022-06-21 15:35] LABS: TOTAL 25(OH) VITAMIN D 21.9 NG/ML (30.0-100.0)
[2022-06-21 20:36] LABS: HEMOGLOBIN A1c 5.4 %
== END ==
LOC: M SFHCADAM 09:26
PROVIDERS: ATTEND Physician Assistant Medical
DX: I10 Essential (primary) hypertension (principal); E78.2 Mixed hyperlipidemia; I48.91 Unspecified atrial fibrillation

== ENCOUNTER → 2022-12-13 | Outpatient (REF) | payer MEDICARE, OTHER ==
[2022-12-13 13:01] LABS: HEMATOCRIT 46.4 % (42.0-52.0); MEAN CORPUSCULAR HEMOGLOBIN 31.6 pg (27.0-33.0); MEAN CORPUSCULAR HGB CONC 32.3 g/dl (32.0-36.5); MEAN CORPUSCULAR VOLUME 97.7 fl (80.0-96.0); PLATELET COUNT, AUTOMATED 194 10^3/uL (150-450); RED BLOOD COUNT 4.75 10^6/uL (4.30-6.10); WHITE BLOOD COUNT 4.4 10^3/uL (4.0-10.0)
[2022-12-13 13:32] LABS: ALBUMIN 4.2 G/DL (3.2-5.2); BILIRUBIN,TOTAL 1.2 MG/DL (0.3-1.2); CALCIUM LEVEL 8.7 MG/DL (8.3-10.6); CHOLESTEROL RISK RATIO 3.71 (<5); CREATININE FOR GFR 1.25 MG/DL (0.70-1.30); GLOMERULAR FILTRATION RATE 59.3 (>42); HDL CHOLESTEROL 31.2 MG/DL (>40); LDL CHOLESTEROL 68.8 MG/DL (<100); NON-HDL-C 84.8 MG/DL; POTASSIUM SERUM 4.1 MMOL/L (3.5-5.1); TOTAL PROTEIN 6.8 G/DL (5.7-8.2)
[2022-12-13 13:34] LABS: THYROID STIMULATING HORMONE 2.772 uIU/ML (0.55-4.78)
[2022-12-13 13:48] LABS: ATYPICAL LYMPH 6 % (0-5); BASOPHILS 2 % (0-1); LYMPHOCYTES 18 % (16-44); METAMYELOCYTES 1 % (0-0); MONOCYTES 9 % (0-5); NEUTROPHILS 64 % (28-66); PLATELET ESTIMATE NORMAL (NORMAL)
== END ==
LOC: M SFHCADAM 07:47
PROVIDERS: ATTEND Physician Assistant Medical
DX: I10 Essential (primary) hypertension (principal); E78.2 Mixed hyperlipidemia; I48.91 Unspecified atrial fibrillation

== ENCOUNTER → 2023-09-04 | Outpatient (REF) | payer MEDICARE, OTHER ==
[2023-09-04 13:53] LABS: HEMATOCRIT 43.9 % (42.0-52.0); HEMOGLOBIN 14.5 g/dl (13.5-17.5); MEAN CORPUSCULAR HEMOGLOBIN 31.7 pg (27.0-33.0); MEAN CORPUSCULAR VOLUME 96.1 fl (80.0-96.0); PLATELET COUNT, AUTOMATED 192 10^3/uL (150-450); RED BLOOD COUNT 4.57 10^6/uL (4.30-6.10)
[2023-09-04 14:05] LABS: ALBUMIN 4.1 G/DL (3.2-5.2); BILIRUBIN,TOTAL 1.1 MG/DL (0.3-1.2); CALCIUM LEVEL 9.2 MG/DL (8.3-10.6); CHOLESTEROL RISK RATIO 5.2 (<5); CREATININE FOR GFR 1.29 MG/DL (0.70-1.30); GLOMERULAR FILTRATION RATE 57.1 (>35); HDL CHOLESTEROL 28.8 MG/DL (>40); LDL CHOLESTEROL 104.4 MG/DL (<100); MAGNESIUM LEVEL 2.1 MG/DL (1.8-2.4); NON-HDL-C 121.2 MG/DL; POTASSIUM SERUM 4.4 MMOL/L (3.5-5.1)
[2023-09-04 14:06] LABS: THYROID STIMULATING HORMONE 3.314 uIU/ML (0.55-4.78); TOTAL 25(OH) VITAMIN D 23.3 NG/ML (20.0-100.0)
[2023-09-04 14:57] LABS: HEMOGLOBIN A1c 5.3 % (4.0-6.0)
[2023-09-04 15:08] LABS: ATYPICAL LYMPH 19 % (0-5); EOSINOPHILS 1 % (0-3); LYMPHOCYTES 4 % (16-44); MONOCYTES 17 % (0-5); NEUTROPHILS 59 % (28-66)
[2023-09-04 15:09] LABS: PLATELET ESTIMATE NORMAL (NORMAL); TOXIC VACUOLATION 2+
== END ==
LOC: M SFHCADAM 08:19
PROVIDERS: ATTEND Physician Assistant Medical
DX: I12.9 Hypertensive chronic kidney disease with stage 1 through stage 4 chronic kidney disease, or unspecified chronic kidney disease (principal); E78.2 Mixed hyperlipidemia; I48.91 Unspecified atrial fibrillation; N40.1 Benign prostatic hyperplasia with lower urinary tract symptoms; Z79.899 Other long term (current) drug therapy

== ENCOUNTER → 2023-12-07 | Outpatient (REF) | payer MEDICARE, OTHER ==
[2023-12-07 17:51] LABS: AMORPHOUS SEDIMENT SMALL (NEGATIVE); APPEARANCE, URINE CLEAR (CLEAR); BACTERIA, URINE AUTO NEGATIVE (NEGATIVE); BILIRUBIN, URINE AUTO NEGATIVE (NEGATIVE); BLOOD, URINE BLOOD 2+ (NEGATIVE); COLOR, URINE RED (YELLOW); GLUCOSE, URINE (UA) AUTO 1+ mg/dL (NEGATIVE); KETONE, URINE AUTO NEGATIVE (NEGATIVE); LEUKOCYTE ESTERASE, URINE AUTO NEGATIVE (NEGATIVE); MUCUS, URINE SMALL (NEGATIVE); NITRITE, URINE AUTO NEGATIVE (NEGATIVE); PROTEIN, URINE AUTO 2+ mg/dL (NEGATIVE); RBC, URINE AUTO TNTC /HPF (0-3); SPECIFIC GRAVITY URINE AUTO 1.008 (1.002-1.035); SQUAMOUS EPITHELIAL CELL UR AU 0 /HPF (0-6); UROBILINOGEN, URINE AUTO 0.2 mg/dL (0.0-2.0); WBC, URINE AUTO 16 /HPF (0-3)
== END ==
LOC: M SMT 16:50
PROVIDERS: ATTEND Urology
DX: R31.0 Gross hematuria (principal)

== ENCOUNTER → 2023-12-08 | Outpatient (CLI) | payer MEDICARE, OTHER | LOC: M RAD 12:32 | PROVIDERS: ATTEND Physician Assistant | DX: R31.0 Gross hematuria (principal) ==

== ENCOUNTER → 2023-12-13 | Outpatient (REF) | payer MEDICARE, OTHER ==
[2023-12-13 17:46] LABS: APPEARANCE, URINE CLEAR (CLEAR); BACTERIA, URINE AUTO NEGATIVE (NEGATIVE); BILIRUBIN, URINE AUTO NEGATIVE (NEGATIVE); BLOOD, URINE BLOOD 1+ (NEGATIVE); COLOR, URINE YELLOW (YELLOW); GLUCOSE, URINE (UA) AUTO NEGATIVE (NEGATIVE); KETONE, URINE AUTO NEGATIVE (NEGATIVE); LEUKOCYTE ESTERASE, URINE AUTO TRACE (NEGATIVE); NITRITE, URINE AUTO NEGATIVE (NEGATIVE); PROTEIN, URINE AUTO 1+ mg/dL (NEGATIVE); RBC, URINE AUTO 2 /HPF (0-3); SPECIFIC GRAVITY URINE AUTO 1.006 (1.002-1.035); SQUAMOUS EPITHELIAL CELL UR AU 0 /HPF (0-6); UROBILINOGEN, URINE AUTO 0.2 mg/dL (0.0-2.0); WBC, URINE AUTO 1 /HPF (0-3)
== END ==
LOC: M LABSMT 16:00
PROVIDERS: ATTEND Urology
DX: R31.0 Gross hematuria (principal)

== ENCOUNTER → 2024-03-05 | Outpatient (REF) | payer MEDICARE, OTHER ==
[2024-03-05 11:11] LABS: APPEARANCE, URINE CLEAR (CLEAR); BACTERIA, URINE AUTO NEGATIVE (NEGATIVE); BILIRUBIN, URINE AUTO NEGATIVE (NEGATIVE); BLOOD, URINE BLOOD NEGATIVE (NEGATIVE); COLOR, URINE YELLOW (YELLOW); GLUCOSE, URINE (UA) AUTO NEGATIVE (NEGATIVE); KETONE, URINE AUTO NEGATIVE (NEGATIVE); LEUKOCYTE ESTERASE, URINE AUTO TRACE (NEGATIVE); MUCUS, URINE SMALL (NEGATIVE); NITRITE, URINE AUTO NEGATIVE (NEGATIVE); PROTEIN, URINE AUTO 2+ mg/dL (NEGATIVE); RBC, URINE AUTO 1 /HPF (0-3); SPECIFIC GRAVITY URINE AUTO 1.011 (1.002-1.035); SQUAMOUS EPITHELIAL CELL UR AU 0 /HPF (0-6); UROBILINOGEN, URINE AUTO 0.2 mg/dL (0.0-2.0); WBC, URINE AUTO 8 /HPF (0-3)
== END ==
LOC: M SMT 10:22
PROVIDERS: ATTEND Urology
DX: Z87.898 Personal history of other specified conditions (principal)

== ENCOUNTER → 2024-03-07 | Outpatient (REF) | payer MEDICARE, OTHER ==
[2024-03-08 13:55] LABS: PSA FREE 1.6 ng/mL; PSA TOTAL 6.9 ng/mL (< OR = 4.0)
== END ==
LOC: M SFHCADAM 07:45
PROVIDERS: ATTEND Urology
DX: R97.20 Elevated prostate specific antigen [PSA] (principal)

== ENCOUNTER → 2024-08-22 | Outpatient (REF) | payer MEDICARE, OTHER ==
[2024-08-22 13:15] LABS: ALKALINE PHOSPHATASE 101 U/L (40-129); ALT/SGPT 16 U/L (7.0-40); AST/SGOT 17 U/L (<34); BILIRUBIN,TOTAL 1.2 MG/DL (0.3-1.2); BLOOD UREA NITROGEN 13 MG/DL (9-23); CALCIUM LEVEL 9.4 MG/DL (8.3-10.6); CARBON DIOXIDE LEVEL 27 MMOL/L (20-31); CHLORIDE LEVEL 104 MMOL/L (98-107); CHOLESTEROL LEVEL 152 MG/DL (<200); CHOLESTEROL RISK RATIO 4.52 (<5); GLOMERULAR FILTRATION RATE > 60.0 (>35); GLUCOSE, FASTING 99 MG/DL (74-106); HDL CHOLESTEROL 33.6 MG/DL (>40); LDL CHOLESTEROL 103.4 MG/DL (<100); NON-HDL-C 118.4 MG/DL; POTASSIUM SERUM 4.2 MMOL/L (3.5-5.1); SODIUM LEVEL 139 MMOL/L (136-145); THYROID STIMULATING HORMONE 5.146 uIU/ML (0.55-4.78); TOTAL 25(OH) VITAMIN D 18.8 NG/ML (20.0-100.0); TOTAL PROTEIN 7.6 G/DL (5.7-8.2); TRIGLYCERIDES LEVEL 75 MG/DL (<150)
[2024-08-22 13:17] LABS: HEMATOCRIT 45.4 % (42.0-52.0); HEMOGLOBIN 14.5 g/dl (13.5-17.5); MEAN CORPUSCULAR HEMOGLOBIN 30.6 pg (27.0-33.0); MEAN CORPUSCULAR HGB CONC 31.9 g/dl (32.0-36.5); MEAN CORPUSCULAR VOLUME 95.8 fl (80.0-96.0); PLATELET COUNT, AUTOMATED 176 10^3/uL (150-450); RED BLOOD COUNT 4.74 10^6/uL (4.30-6.10)
[2024-08-22 13:28] LABS: HEMOGLOBIN A1c 5.1 % (4.0-6.0)
[2024-08-22 13:45] LABS: ATYPICAL LYMPH 5 % (0-5); EOSINOPHILS 2 % (0-3); LYMPHOCYTES 13 % (16-44); MONOCYTES 19 % (0-5); MYELOCYTES 1 % (0-0); NEUTROPHILS 58 % (28-66)
[2024-08-22 13:46] LABS: PLATELET ESTIMATE NORMAL (NORMAL)
== END ==
LOC: M SFHCADAM 08:13
PROVIDERS: ATTEND Physician Assistant Medical
DX: Z00.00 Encounter for general adult medical examination without abnormal findings (principal); E78.2 Mixed hyperlipidemia; I48.91 Unspecified atrial fibrillation; Z79.899 Other long term (current) drug therapy; I12.9 Hypertensive chronic kidney disease with stage 1 through stage 4 chronic kidney disease, or unspecified chronic kidney disease

== ENCOUNTER → 2025-02-26 | Outpatient (REF) | payer MEDICARE, OTHER ==
[~2025-02-26] MED LIST changes: -FLOM0.4C39 PO; -NYST-13 TOP; +NYST0.1C TOP; +TAMS-18 PO
[2025-02-26 13:59] LABS: APPEARANCE, URINE CLEAR (CLEAR); BACTERIA, URINE AUTO NEGATIVE (NEGATIVE); BILIRUBIN, URINE AUTO NEGATIVE (NEGATIVE); BLOOD, URINE BLOOD NEGATIVE (NEGATIVE); GLUCOSE, URINE (UA) AUTO NEGATIVE (NEGATIVE); KETONE, URINE AUTO NEGATIVE (NEGATIVE); LEUKOCYTE ESTERASE, URINE AUTO 1+ (NEGATIVE); MUCUS, URINE SMALL (NEGATIVE); NITRITE, URINE AUTO NEGATIVE (NEGATIVE); PROTEIN, URINE AUTO 1+ mg/dL (NEGATIVE); RBC, URINE AUTO 3 /HPF (0-3); SPECIFIC GRAVITY URINE AUTO 1.013 (1.002-1.035); SQUAMOUS EPITHELIAL CELL UR AU 0 /HPF (0-6); UROBILINOGEN, URINE AUTO 0.2 mg/dL (0.0-2.0); WBC, URINE AUTO 29 /HPF (0-3)
== END ==
LOC: M SMT 13:08
PROVIDERS: ATTEND Urology
DX: Z87.898 Personal history of other specified conditions (principal)